=== PATIENT | male | born 1960 | race Caucasian/White ===

== ENCOUNTER 2017-03-04 09:23 | Inpatient (IN) | payer OTHER ==
[2017-03-04] MEDS ORDERED: Loperamide 2 MG Cap PO SCH (14:15)
[2017-03-04] MEDS ORDERED: Sodium Chloride 0.9% 10 ML Syringe FLUSH PRN (14:18)
[2017-03-04] MEDS ORDERED: D5 1/2 NS w/ 10 mEq/L KCl 1,000 ML IV SCH (14:30)
[2017-03-04] MEDS ORDERED: Prochlorperazine 10 MG Tab PO PRN (15:05)
[2017-03-04] MEDS ORDERED: Ondansetron 4 MG Tab.DIS PO PRN (15:05)
[2017-03-04] MEDS ORDERED: Non-Formulary Medication 1 Each (Loperamide Hcl [Imodium A-D] 2 MG) PO PRN (15:05)
[2017-03-04] MEDS: Dextrose 5%-0.9% NaCl 1,000 ML IV SCH ×2 (15:20→22:11)
[2017-03-04] MEDS ORDERED: Nystatin Susp 100,000 Unit/ML 60 ML Bottle PO SCH (16:00)
[2017-03-04] MEDS ORDERED: Loperamide 2 MG Cap PO PRN (16:08)
[2017-03-04] MEDS ORDERED: ONDANSETRON 8 MG PO PRN (16:19)
[2017-03-04] MEDS: Promethazine 25 MG/ML SDV IM SCH ×2 (17:43→22:14)
[2017-03-04] MEDS: Ondansetron 4 MG/2 ML SDV IVPUSH SCH ×2 (17:43→22:14)
[2017-03-04] MEDS: NYSTATIN PO SCH (22:04)
[2017-03-05] MEDS: Dextrose 5%-0.9% NaCl 1,000 ML IV SCH ×3 (04:19→17:44)
[2017-03-05] MEDS: Promethazine 25 MG/ML SDV IM SCH ×5 (07:58→14:33)
[2017-03-05] MEDS: DULoxetine 30 MG Cap PO SCH (07:59)
[2017-03-05] MEDS: Ondansetron 4 MG/2 ML SDV IVPUSH SCH ×3 (07:59→20:15)
[2017-03-05] MEDS: NYSTATIN PO SCH ×4 (08:00→21:18)
[2017-03-05] MEDS: Aspirin 81 MG Tab.EC PO SCH (08:00)
--- NOTE | 2017-03-05 10:23 | PCM.PN ---
- General Info Date of Service: 03/05/17 - Review of Systems General: Reports: Weakness HEENT: Reports: no symptoms Pulmonary: Reports: no symptoms Cardiovascular: Reports: No Symptoms Gastrointestinal: Reports: Decreased appetite, Nausea Genitourinary: Reports: no symptoms Musculoskeletal: Reports: no symptoms Skin: Reports: no symptoms Neurological: Reports: Weakness Psychiatric: Reports: no symptoms - Patient Data Vitals - most recent: Last Vital Signs Temp 36.8 C 03/05/17 08:00 Pulse 89 03/05/17 08:00 Resp 16 03/05/17 08:00 BP 118/76 03/05/17 08:00 Pulse Ox 97 03/05/17 08:00 Weight - most recent: 58.684 kg I&O - last 24 hours: Intake & Output 03/04/17 03/05/17 03/05/17 22:59 06:59 14:59 Intake Total 717 1600 Balance 717 1600 Lab Results last 24 hrs: Laboratory Results - last 24 hr 03/04/17 03/04/17 03/04/17 Range/Units 14:30 14:30 14:30 WBC 17.5 H D (4.0-11.0) K/uL RBC 5.04 (4.50-6.50) M/uL Hgb 15.5 (13.0-18.0) g/dL Hct 45.2 (40.0-54.0) % MCV 90 (76-96) fL MCH 30.8 (27.0-32.0) pg MCHC 34.3 (31.0-35.0) g/dL RDW 16.2 H (11.0-16.0) % Plt Count 254 D (150-400) K/uL MPV 9.8 (6.0-10.0) fL Neut % (Auto) 73.3 H (45.0-70.0) % Lymph % (Auto) 12.3 L (20.0-40.0) % Lyon % (Auto) 13.6 H (3.0-10.0) % Eos % (Auto) 0.2 L (1.0-5.0) % Baso % (Auto) 0.6 H (0.0-0.5) % Neut # (Auto) 12.84 H (2.00-7.50) K/uL Lymph # (Auto) 2.15 (1.50-4.00) K/uL Lyon # (Auto) 2.38 H (0.20-0.80) K/uL Eos # (Auto) 0.04 (0.04-0.40) K/uL Baso # (Auto) 0.10 (0.02-0.10) K/uL Sodium 133 L (136-145) mmol/L Potassium 4.0 (3.5-5.1) mmol/L Chloride 98 (98-107) mmol/L Carbon Dioxide 23.4 (21.0-32.0) mmol/L Anion Gap 15.6 H (5.0-15.0) mmol/L BUN 21 D (8-26) mg/dL Creatinine 1.31 H D (0.70-1.30) mg/dL Est Cr Clr Drug Dosing TNP Estimated GFR (MDRD) 57 L (>60) MLS/MIN BUN/Creatinine Ratio 16.0 (6-25) Glucose 142 H D (74-100) mg/dL Calcium 9.1 (8.5-10.1) mg/dL Magnesium 2.3 (1.8-2.4) mg/dL Total Bilirubin (0.0-1.0) mg/dL AST (15-37) U/L ALT (12-78) U/L Alkaline Phosphatase (46-116) U/L Total Protein (6.4-8.2) g/dL Albumin (3.4-5.0) g/dL Globulin (2.2-4.2) g/dL Albumin/Globulin Ratio (0.8-2.0) 03/05/17 03/05/17 Range/Units 09:28 09:28 WBC 9.1 D (4.0-11.0) K/uL RBC 4.10 L (4.50-6.50) M/uL Hgb 12.7 L (13.0-18.0) g/dL Hct 37.9 L (40.0-54.0) % MCV 92 (76-96) fL MCH 31.0 (27.0-32.0) pg MCHC 33.5 (31.0-35.0) g/dL RDW 15.7 (11.0-16.0) % Plt Count 126 L D (150-400) K/uL MPV 10.0 (6.0-10.0) fL Neut % (Auto) 76.6 H (45.0-70.0) % Lymph % (Auto) 10.9 L (20.0-40.0) % Lyon % (Auto) 11.2 H (3.0-10.0) % Eos % (Auto) 0.6 L (1.0-5.0) % Baso % (Auto) 0.7 H (0.0-0.5) % Neut # (Auto) 6.94 (2.00-7.50) K/uL Lymph # (Auto) 0.99 L (1.50-4.00) K/uL Lyon # (Auto) 1.01 H (0.20-0.80) K/uL Eos # (Auto) 0.05 (0.04-0.40) K/uL Baso # (Auto) 0.06 (0.02-0.10) K/uL Sodium 139 (136-145) mmol/L Potassium 4.4 (3.5-5.1) mmol/L Chloride 104 (98-107) mmol/L Carbon Dioxide 28.9 D (21.0-32.0) mmol/L Anion Gap 10.5 (5.0-15.0) mmol/L BUN 10 D (8-26) mg/dL Creatinine 1.07 (0.70-1.30) mg/dL Est Cr Clr Drug Dosing 62.04 Estimated GFR (MDRD) > 60 (>60) MLS/MIN BUN/Creatinine Ratio 9.3 (6-25) Glucose 116 H (74-100) mg/dL Calcium 8.4 L (8.5-10.1) mg/dL Magnesium (1.8-2.4) mg/dL Total Bilirubin 1.0 D (0.0-1.0) mg/dL AST 54 H (15-37) U/L ALT 123 H (12-78) U/L Alkaline Phosphatase 258 H (46-116) U/L Total Protein 5.6 L (6.4-8.2) g/dL Albumin 2.9 L (3.4-5.0) g/dL Globulin 2.7 (2.2-4.2) g/dL Albumin/Globulin Ratio 1.1 (0.8-2.0) Senthil Results last 24 hrs: Microbiology 03/04/17 09:29 Clostridium difficile (PCR) - Final Stool / Feces NEGATIVE CDIFF TOXIN Med Orders - Current: Current Medications Aspirin (Halfprin) 81 mg PO DAILY [facility] Last Admin: 03/05/17 08:00 Dose: 81 mg Duloxetine HCl (Cymbalta) 60 mg PO DAILY [facility] Last Admin: 03/05/17 07:59 Dose: 60 mg Dextrose/Sodium Chloride (Dextrose 5%-Normal Saline) 1,000 mls @ 150 mls/hr IV ASDIRECTED [facility] Last Admin: 03/05/17 04:19 Dose: 150 mls/hr Loperamide HCl (Imodium) 2 mg PO ASDIRECTED PRN PRN Reason: DIARRHEA Nystatin Oral (Suspension 473ml) 1 each PO QID [facility] Last Admin: 03/05/17 08:00 Dose: 1 each Ondansetron 8mg Odt 1 each PO Q8H PRN PRN Reason: NAUSEA Ondansetron HCl (Zofran) 4 mg IVPUSH Q6H [facility] Last Admin: 03/05/17 07:59 Dose: Not Given Prochlorperazine Maleate (Compazine) 10 mg PO QID PRN PRN Reason: Nausea Promethazine HCl (Phenergan) 25 mg IM Q4H [facility] Last Admin: 03/05/17 07:59 Dose: Not Given Sodium Chloride (Saline Flush) 10 ml FLUSH ASDIRECTED PRN PRN Reason: Keep Vein Open - Exam General: alert, oriented, cooperative HEENT: Pupils equal, Pupils reactive, EOMI Neck: supple Lungs: Clear to auscultation, Normal respiratory effort Cardiovascular: Regular Rate, Regular Rhythm Back Exam: Normal Inspection, Full Range of Motion Extremities: no edema Skin: warm, dry, intact Neurological: no new focal deficit - Problem List & Annotations (1) Nausea & vomiting SNOMED Code(s): 20261976 Code(s): R11.2 - NAUSEA WITH VOMITING, UNSPECIFIED Status: Acute Priority : High Current Visit: Yes Qualifiers: Vomiting type: unspecified Vomiting Intractability: intractable Qualified Code(s): R11.2 - Nausea with vomiting, unspecified (2) Pancreatic adenocarcinoma SNOMED Code(s): 001519652, 363997800 Code(s): C25.9 - MALIGNANT NEOPLASM OF PANCREAS, UNSPECIFIED Status: Acute Priority: High Current Visit: Yes (3) Decreased appetite SNOMED Code(s): 40082691 Code(s): R63.0 - ANOREXIA Status: Acute Priority: High Current Visit: Yes (4) Weight loss SNOMED Code(s): 367028354, 507749534 Code(s): R63.4 - ABNORMAL WEIGHT LOSS Status: Acute Priority: High Current Visit: Yes (5) Chemotherapy induced nausea and vomiting SNOMED Code(s): 405824588 Code(s): R11.2 - NAUSEA WITH VOMITING, UNSPECIFIED; T45.1X5A - ADVERSE EFFECT OF ANTINEOPLASTIC AND IMMUNOSUP DRUGS, INIT Status: Acute Priority: High Current Visit: Yes (6) Chemotherapy induced diarrhea SNOMED Code(s): 713894496 Code(s): K52.1 - TOXIC GASTROENTERITIS AND COLITIS; T45.1X5A - ADVERSE EFFECT OF ANTINEOPLASTIC AND IMMUNOSUP DRUGS, INIT Status: Acute Priority: High Current Visit: Yes - Problem List Review Problem List Initiated/Reviewed/Updated: Yes - My Orders Last 24 Hours: My Active Orders 03/04/17 14:01 Patient Status [ADT] Routine Ambulate [RC] PER UNIT ROUTINE Oxygen Therapy [RC] PRN Vital Signs [RC] Q4H 03/04/17 14:15 Ondansetron [Zofran] 4 mg IVPUSH Q6H Promethazine [Phenergan] 25 mg IM Q4H 03/04/17 14:18 Sodium Chloride 0.9% [Saline Flush] 10 ml FLUSH ASDIRECTED PRN Peripheral IV Insertion Adult [OM.PC] Routine 03/04/17 15:05 Prochlorperazine [Compazine] 10 mg PO QID PRN 03/04/17 15:15 Dextrose 5%-0.9% NaCl [Dextrose 5%-Normal Saline] 1,000 ml IV ASDIRECTED 03/04/17 15:44 CULTURE MRSA SURVEY [RM] Routine 03/04/17 16:08 Loperamide [Imodium] 2 mg PO ASDIRECTED PRN 03/04/17 16:19 Non-Formulary Medication [NF Drug] 1 each PO Q8H PRN 03/04/17 20:00 Non-Formulary Medication [NF Drug] 1 each PO QID 03/04/17 Dinner Heart Healthy Diet [DIET] 03/05/17 08:00 Aspirin [Halfprin] 81 mg PO DAILY DULoxetine [Cymbalta] 60 mg PO DAILY - Plan Plan:: Patient has improved with fluid resuscitation. He continues to be nauseated but has not has diarrhea or vomiting since being in observation. We will f/u labs this am and consider discharge planning for tomorrow. Locums can change discharge planning if patient condition changes.
[2017-03-05] MEDS: Metoclopramide 10 MG/2 ML SDV IVPUSH SCH ×2 (16:35→21:19)
[2017-03-06] MEDS: Dextrose 5%-0.9% NaCl 1,000 ML IV SCH ×3 (00:04→15:29)
[2017-03-06] MEDS: Ondansetron 4 MG/2 ML SDV IVPUSH SCH ×2 (03:03→07:16)
[2017-03-06] MEDS: Metoclopramide 10 MG/2 ML SDV IVPUSH SCH (03:03)
[2017-03-06] MEDS: Aspirin 81 MG Tab.EC PO SCH (07:14)
[2017-03-06] MEDS: DULoxetine 30 MG Cap PO SCH (07:14)
[2017-03-06] MEDS: NYSTATIN PO SCH ×4 (07:15→23:55)
[2017-03-06] MEDS ORDERED: OLANZapine 5 MG Tab PO SCH (10:00)
--- NOTE | 2017-03-06 11:15 | PCM.PN ---
- General Info Date of Service: 03/06/17 Functional Status: Reports: urinating. Denies: tolerating diet - Review of Systems General: Reports: Weakness HEENT: Reports: no symptoms Pulmonary: Reports: no symptoms Cardiovascular: Reports: No Symptoms Gastrointestinal: Reports: Abdominal pain, Decreased appetite, Diarrhea, Nausea , Vomiting Genitourinary: Reports: frequency Musculoskeletal: Reports: no symptoms Skin: Reports: no symptoms Neurological: Reports: Weakness Psychiatric: Reports: no symptoms - Patient Data Vitals - most recent: Last Vital Signs Temp 37.2 C 03/06/17 08:30 Pulse 90 03/06/17 08:30 Resp 16 03/06/17 08:30 BP 135/85 03/06/17 08:30 Pulse Ox 96 03/06/17 08:30 Weight - most recent: 58.684 kg I&O - last 24 hours: Intake & Output 03/05/17 03/06/17 03/06/17 22:59 06:59 14:59 Intake Total 1861 Balance 1861 Senthil Results last 24 hrs: Microbiology 03/04/17 15:44 MRSA Surveillance Culture - Final Nares, Unspecified NO MRSA ISOLATED Med Orders - Current: Current Medications Aspirin (Halfprin) 81 mg PO DAILY [facility] Last Admin: 03/06/17 07:14 Dose: 81 mg Duloxetine HCl (Cymbalta) 60 mg PO DAILY [facility] Last Admin: 03/06/17 07:14 Dose: 60 mg Dextrose/Sodium Chloride (Dextrose 5%-Normal Saline) 1,000 mls @ 150 mls/hr IV ASDIRECTED [facility] Last Admin: 03/06/17 07:07 Dose: 150 mls/hr Loperamide HCl (Imodium) 2 mg PO ASDIRECTED PRN PRN Reason: DIARRHEA Nystatin Oral (Suspension 473ml) 1 each PO QID [facility] Last Admin: 03/06/17 07:15 Dose: 1 each Ondansetron 8mg Odt 1 each PO Q8H PRN PRN Reason: NAUSEA Olanzapine (Zyprexa) 5 mg PO DAILY [facility] Ondansetron HCl (Zofran) 4 mg IVPUSH Q6H [facility] Last Admin: 03/06/17 07:16 Dose: 4 mg Prochlorperazine Maleate (Compazine) 10 mg PO QID PRN PRN Reason: Nausea Last Admin: 03/06/17 00:09 Dose: 10 mg Sodium Chloride (Saline Flush) 10 ml FLUSH ASDIRECTED PRN PRN Reason: Keep Vein Open Discontinued Medications Metoclopramide HCl (Reglan) 10 mg IVPUSH Q6H [facility] Last Admin: 03/06/17 03:03 Dose: 10 mg Promethazine HCl (Phenergan) 25 mg IM Q4H [facility] Last Admin: 03/05/17 14:33 Dose: 25 mg - Exam General: alert, oriented, cooperative HEENT: Pupils equal, Pupils reactive Neck: supple Lungs: Clear to auscultation, Normal respiratory effort Cardiovascular: Regular Rate, Regular Rhythm Abdomen: tenderness, abnormal bowel sounds (increased) Back Exam: Normal Inspection Extremities: no edema Peripheral Pulses: 2+: Dorsalis Pedis (L), Dorsalis Pedis (R) Skin: warm, dry, intact Wound/Incisions: healing well Neurological: no new focal deficit - Problem List & Annotations (1) Nausea & vomiting SNOMED Code(s): 16286018 Code(s): R11.2 - NAUSEA WITH VOMITING, UNSPECIFIED Status: Acute Priority : High Current Visit: Yes Qualifiers: Vomiting type: unspecified Vomiting Intractability: intractable Qualified Code(s): R11.2 - Nausea with vomiting, unspecified (2) Pancreatic adenocarcinoma SNOMED Code(s): 963294424, 229495619 Code(s): C25.9 - MALIGNANT NEOPLASM OF PANCREAS, UNSPECIFIED Status: Acute Priority: High Current Visit: Yes (3) Decreased appetite SNOMED Code(s): 93438265 Code(s): R63.0 - ANOREXIA Status: Acute Priority: High Current Visit: Yes (4) Weight loss SNOMED Code(s): 875748556, 877498322 Code(s): R63.4 - ABNORMAL WEIGHT LOSS Status: Acute Priority: High Current Visit: Yes (5) Chemotherapy induced nausea and vomiting SNOMED Code(s): 101819098 Code(s): R11.2 - NAUSEA WITH VOMITING, UNSPECIFIED; T45.1X5A - ADVERSE EFFECT OF ANTINEOPLASTIC AND IMMUNOSUP DRUGS, INIT Status: Acute Priority: High Current Visit: Yes (6) Chemotherapy induced diarrhea SNOMED Code(s): 490616062 Code(s): K52.1 - TOXIC GASTROENTERITIS AND COLITIS; T45.1X5A - ADVERSE EFFECT OF ANTINEOPLASTIC AND IMMUNOSUP DRUGS, INIT Status: Acute Priority: High Current Visit: Yes - Problem List Review Problem List Initiated/Reviewed/Updated: Yes - My Orders Last 24 Hours: My Active Orders 03/05/17 Dinner [place] Diet [DIET] 03/06/17 10:00 Ready for Discharge [RC] PER UNIT ROUTINE OLANZapine [ZyPREXA] 5 mg PO DAILY - Plan Plan:: Patient has improved with fluid resuscitation. He continues to be nauseated but has not has diarrhea or vomiting since being in observation. We will f/u labs this am and consider discharge planning for tomorrow. Locums can change discharge planning if patient condition changes. 03/06/17 Considered discharge today but after evaluation patient's condition deteriorated yesterday and had increased vomiting that lasted all night. We will try a different approach and start trial of Olanzapine 5mg BID. Started vicodin 7.5-325 q4-6 for abdominal pain and it may improve his diarrhea. Signed out to Dr. Jones and he will sign out to Dr. Leal at 5pm. Patient is currently on observation and will need to be reassessed tomorrow for admission or respite care. Continue fluids at 100mL/hr.
[2017-03-06] MEDS ORDERED: Acetaminophen/HYDROcodone 325-5 MG Tab ONE ×2 (11:28→15:05)
[2017-03-06] MEDS ORDERED: LORazepam 0.5 MG Tab PO PRN (14:09)
[2017-03-06] MEDS ORDERED: DEXAMETHASONE IV SCH (14:15)
[2017-03-06] MEDS ORDERED: SODIUM CHLORIDE 0.9% IV SCH (14:15)
[2017-03-06] MEDS ORDERED: LORazepam 2 MG/ML MDV IVPUSH PRN (14:29)
[2017-03-06] MEDS: GRANISETRON 1 MG/ML IVPUSH SCH (14:40)
[2017-03-06] MEDS: SODIUM CHLORIDE 0.9% IV SCH (14:44)
[2017-03-06] MEDS: DEXAMETHASONE IV SCH (14:44)
[2017-03-06] MEDS ORDERED: Acetaminophen/HYDROcodone 325-5 MG Tab PO PRN (15:20)
[2017-03-06] MEDS: OLANZapine 5 MG Tab PO SCH (23:55)
--- NOTE | 2017-03-07 00:57 | HP ---
The patient is going to transfer from observation to inpatient. DIAGNOSIS: Metastatic pancreatic cancer with intractable nausea and vomiting and intractable pain. HISTORY OF PRESENT ILLNESS: Patient is followed by Dr. Padilla and has an oncologists in [place], Dr. Tracey Lee. Patient is under treatment for his metastatic pancreatic cancer, was admitted by Dr. Padilla on 03/05/2017 for observation due to intractable pain, nausea, and vomiting. In the hospital, it was difficult to control his symptoms and therefore he was admitted to inpatient. REVIEW OF SYSTEMS: GENERAL: Patient reports generalized. Weakness. HEENT: No symptoms. Pulmonary: No symptoms. Cardiovascular: No symptoms. GI: Patient reports decreased appetite, nausea, vomiting, and occasional diarrhea. : No symptoms. MUSCULOSKELETAL: No symptoms. SKIN: No symptoms. NEUROLOGIC: Generalized malaise and weakness. PSYCHIATRIC: No symptoms. PHYSICAL EXAMINATION: VITAL SIGNS: Upon admission, show a blood pressure of 138/85, pulse of 95, O2 saturation at room air 95%, respirations 16, temperature 37.2. CONSTITUTIONAL: Patient appears chronically ill. He is pale and icteric with fair turgor. EYES: Show EOMI, PERRLA, mild icterus. ENT: Nose is clear. Throat is clear. No thrush. NECK: Symmetrical. No masses. No thyromegaly. LYMPH: Exam is negative. LUNGS: Clear. HEART: Shows regular rate and rhythm. No murmurs, rubs, or gallops. No S3, no S4. ABDOMEN: Shows bowel sounds x4. No mass, no organomegaly. There is no rebound. There is mild generalized tenderness. ORTHO: Shows no CVA or cord tenderness. No restricted joint motion, no acutely inflamed joints. SKIN: No rashes. He is, as I said, pale and icteric. NEURO: Cranial nerves II through XII are intact. No focal deficits. PSYCH: Normal judgment and insight. Oriented x3. His memory is intact and his mood is appropriate. ASSESSMENT: Metastatic pancreatic cancer with intractable pain and intractable nausea and vomiting. PLAN: Patient will be admitted to the hospital for continuous hydration and control of his pain and nausea and vomiting. FREDDY/MODRay
[2017-03-07] MEDS: Dextrose 5%-0.9% NaCl 1,000 ML IV SCH ×2 (06:28→10:45)
[2017-03-07] MEDS: Metoclopramide 10 MG/2 ML SDV IVPUSH SCH (07:30)
[2017-03-07] MEDS: OLANZapine 5 MG Tab PO SCH ×2 (08:18→22:16)
[2017-03-07] MEDS: Aspirin 81 MG Tab.EC PO SCH (08:18)
[2017-03-07] MEDS: DULoxetine 30 MG Cap PO SCH (08:18)
[2017-03-07] MEDS: SODIUM CHLORIDE 0.9% IV SCH (08:19)
[2017-03-07] MEDS: DEXAMETHASONE IV SCH (08:19)
[2017-03-07] MEDS: GRANISETRON 1 MG/ML IVPUSH SCH (08:20)
[2017-03-07] MEDS: NYSTATIN PO SCH (08:21)
--- NOTE | 2017-03-07 08:49 | PCM.PN ---
- General Info Date of Service: 03/07/17 Admission Dx/Problem (Free Text): Pancreatic cancer with nausea, vomiting and diarrhea caused by chemotherapy. Functional Status: Reports: pain controlled - Review of Systems General: Reports: Appetite, Other (Still nauseated at times with diarrhea.) HEENT: Reports: no symptoms Pulmonary: Reports: no symptoms Cardiovascular: Reports: No Symptoms Gastrointestinal: Reports: Diarrhea, Nausea, Vomiting Genitourinary: Reports: no symptoms Musculoskeletal: Reports: no symptoms Skin: Reports: no symptoms - Patient Data Vitals - most recent: Last Vital Signs Temp 37.2 C 03/07/17 00:00 Pulse 115 H 03/07/17 00:00 Resp 12 03/07/17 00:00 BP 143/72 H 03/07/17 00:00 Pulse Ox 96 03/07/17 00:00 Weight - most recent: 58.684 kg I&O - last 24 hours: Intake & Output 03/06/17 03/07/17 03/07/17 22:59 06:59 14:59 Intake Total 2200 1800 Output Total 800 800 Balance 1400 1000 Med Orders - Current: Current Medications Hydrocodone Bitart/Acetaminophen ([place] 325-5 Mg) 1 tab PO Q4H PRN PRN Reason: Pain Last Admin: 03/07/17 08:22 Dose: 1 tab Aspirin (Halfprin) 81 mg PO DAILY [facility] Last Admin: 03/07/17 08:18 Dose: 81 mg Duloxetine HCl (Cymbalta) 60 mg PO DAILY [facility] Last Admin: 03/07/17 08:18 Dose: 60 mg Granisetron HCl (Kytril) 1 mg IVPUSH DAILY [facility] Stop: 03/08/17 18:00 Last Admin: 03/07/17 08:20 Dose: 1 mg Dexamethasone 12 mg/ Sodium (Chloride) 103 mls @ 250 mls/hr IV DAILY [facility] Stop: 03/08/17 18:00 Last Admin: 03/07/17 08:19 Dose: 250 mls/hr Dextrose/Sodium Chloride (Dextrose 5%-Normal Saline) 1,000 mls @ 100 mls/hr IV ASDIRECTED [facility] Loperamide HCl (Imodium) 2 mg PO ASDIRECTED PRN PRN Reason: DIARRHEA Lorazepam (Ativan) 0.5 mg IVPUSH Q4H PRN PRN Reason: CHEMOTHERAPY Nystatin Oral (Suspension 473ml) 1 each PO QID [facility] Last Admin: 03/07/17 08:21 Dose: 1 each Ondansetron 8mg Odt 1 each PO Q8H PRN PRN Reason: NAUSEA Olanzapine (Zyprexa) 5 mg PO BID [facility] Last Admin: 03/07/17 08:18 Dose: 5 mg Ondansetron HCl (Zofran) 4 mg IVPUSH Q6H [facility] Last Admin: 03/06/17 07:16 Dose: 4 mg Sodium Chloride (Saline Flush) 10 ml FLUSH ASDIRECTED PRN PRN Reason: Keep Vein Open Discontinued Medications Hydrocodone Bitart/Acetaminophen ([place] 325-5 Mg) Confirm Administered Dose 1 tab .ROUTE .STK-MED ONE Stop: 03/06/17 11:29 Last Admin: 03/06/17 11:33 Dose: 1 tab Hydrocodone Bitart/Acetaminophen ([place] 325-5 Mg) Confirm Administered Dose 1 tab .ROUTE .STK-MED ONE Stop: 03/06/17 15:06 Last Admin: 03/06/17 15:23 Dose: 1 tab Dextrose/Sodium Chloride (Dextrose 5%-Normal Saline) 1,000 mls @ 150 mls/hr IV ASDIRECTED [facility] Last Admin: 03/07/17 06:28 Dose: 150 mls/hr Dexamethasone 12 mg/ Sodium (Chloride) 101.2 mls @ 250 mls/hr IV ASDIRECTED [facility] Stop: 03/08/17 18:00 Metoclopramide HCl (Reglan) 10 mg IVPUSH Q6H [facility] Last Admin: 03/07/17 07:30 Dose: Not Given Olanzapine (Zyprexa) 5 mg PO DAILY [facility] Last Admin: 03/06/17 11:31 Dose: 5 mg Prochlorperazine Maleate (Compazine) 10 mg PO QID PRN PRN Reason: Nausea Last Admin: 03/06/17 00:09 Dose: 10 mg Promethazine HCl (Phenergan) 25 mg IM Q4H [facility] Last Admin: 03/05/17 14:33 Dose: 25 mg - Exam General: alert Lungs: Clear to auscultation, Normal respiratory effort Cardiovascular: Regular Rate, Regular Rhythm Abdomen: bowel sounds present, soft, no tenderness, no distension Extremities: no edema Skin: warm, dry, intact Neurological: no new focal deficit Psy/Mental Status: alert, normal affect, normal mood - Problem List & Annotations (1) Chemotherapy induced diarrhea SNOMED Code(s): 219924879 Code(s): K52.1 - TOXIC GASTROENTERITIS AND COLITIS; T45.1X5A - ADVERSE EFFECT OF ANTINEOPLASTIC AND IMMUNOSUP DRUGS, INIT Status: Acute Priority: High Current Visit: Yes (2) Chemotherapy induced nausea and vomiting SNOMED Code(s): 361468764 Code(s): R11.2 - NAUSEA WITH VOMITING, UNSPECIFIED; T45.1X5A - ADVERSE EFFECT OF ANTINEOPLASTIC AND IMMUNOSUP DRUGS, INIT Status: Acute Priority: High Current Visit: Yes (3) Decreased appetite SNOMED Code(s): 16927684 Code(s): R63.0 - ANOREXIA Status: Acute Priority: High Current Visit: Yes (4) Nausea & vomiting SNOMED Code(s): 40122177 Code(s): R11.2 - NAUSEA WITH VOMITING, UNSPECIFIED Status: Acute Priority : High Current Visit: Yes Qualifiers: Vomiting type: unspecified Vomiting Intractability: intractable Qualified Code(s): R11.2 - Nausea with vomiting, unspecified (5) Pancreatic adenocarcinoma SNOMED Code(s): 619547264, 363625846 Code(s): C25.9 - MALIGNANT NEOPLASM OF PANCREAS, UNSPECIFIED Status: Acute Priority: High Current Visit: Yes (6) Weight loss SNOMED Code(s): 714935962, 350383027 Code(s): R63.4 - ABNORMAL WEIGHT LOSS Status: Acute Priority: High Current Visit: Yes - Problem List Review Problem List Initiated/Reviewed/Updated: Yes - Plan Plan:: Patient has improved with fluid resuscitation. He continues to be nauseated but has not has diarrhea or vomiting since being in observation. We will f/u labs this am and consider discharge planning for tomorrow. Locums can change discharge planning if patient condition changes. 03/06/17 Considered discharge today but after evaluation patient's condition deteriorated yesterday and had increased vomiting that lasted all night. We will try a different approach and start trial of Olanzapine 5mg BID. Started vicodin 7.5-325 q4-6 for abdominal pain and it may improve his diarrhea. Signed out to Dr. Jones and he will sign out to Dr. Backenberg at 5pm. Patient is currently on observation and will need to be reassessed tomorrow for admission or respite care. Continue fluids at 100mL/hr. 03/07/17 Continue fluids and new regimen of anti nausea medications started yesterday. Patient is not comfortable going home yet because he still is not able to eat and drink adequately this morning.
[2017-03-07] MEDS: Nystatin Susp 100,000 Unit/ML 5 ML UD Cup PO SCH ×2 (12:26→20:33)
[2017-03-07] MEDS ORDERED: Dextrose 5%-0.9% NaCl 1,000 ML IV SCH (15:15)
[2017-03-07] MEDS ORDERED: Dexamethasone 4 MG/ML SDV IVPUSH ONE (19:03)
[2017-03-07] MEDS ORDERED: Furosemide 40 MG/4 ML VIAL IVPUSH ONE (19:11)
[2017-03-07] MEDS: cefTRIAXone 1 GM in Sodium Chloride 0.9% 50 ML IV SCH (20:29)
[2017-03-07] MEDS: Azithromycin 500 MG in Sodium Chloride 0.9% 250 ML IV SCH (21:30)
[2017-03-08] MEDS ORDERED: HYDROmorphone 2 MG/ML Syringe IVPUSH PRN (08:07)
[2017-03-08] MEDS ORDERED: Dexamethasone 4 MG/ML SDV ONE (08:34)
--- NOTE | 2017-03-08 08:37 | PCM.PN ---
- General Info Date of Service: 03/08/17 Admission Dx/Problem (Free Text): Pancreatic cancer with nausea, vomiting and diarrhea caused by chemotherapy. Functional Status: Reports: pain controlled - Review of Systems General: Reports: Other (NG tube is in to intermittent suction.) HEENT: Reports: no symptoms Pulmonary: Reports: no symptoms Cardiovascular: Reports: No Symptoms Gastrointestinal: Reports: Abdominal pain, Nausea Genitourinary: Reports: no symptoms Musculoskeletal: Reports: no symptoms Skin: Reports: no symptoms Neurological: Reports: No Symptoms Psychiatric: Reports: no symptoms - Patient Data Vitals - most recent: Last Vital Signs Temp 37.2 C 03/07/17 20:00 Pulse 102 H 03/07/17 20:00 Resp 12 03/07/17 20:00 BP 131/82 03/07/17 20:33 Pulse Ox 98 03/07/17 20:00 Weight - most recent: 58.684 kg I&O - last 24 hours: Intake & Output 03/07/17 03/08/17 03/08/17 22:59 06:59 14:59 Intake Total 1380 Output Total 1900 1100 Balance -520 -1100 Lab Results last 24 hrs: Laboratory Results - last 24 hr 03/07/17 03/07/17 03/07/17 Range/Units 13:20 13:20 15:30 WBC 10.0 (4.0-11.0) K/uL RBC 3.80 L (4.50-6.50) M/uL Hgb 11.6 L (13.0-18.0) g/dL Hct 35.4 L (40.0-54.0) % MCV 93 (76-96) fL MCH 30.5 (27.0-32.0) pg MCHC 32.8 (31.0-35.0) g/dL RDW 15.5 (11.0-16.0) % Plt Count 115 L (150-400) K/uL MPV 9.7 (6.0-10.0) fL Neut % (Auto) 94.3 H (45.0-70.0) % Lymph % (Auto) 3.4 L (20.0-40.0) % Dawes % (Auto) 2.2 L (3.0-10.0) % Eos % (Auto) 0.0 L (1.0-5.0) % Baso % (Auto) 0.1 (0.0-0.5) % Neut # (Auto) 9.46 H (2.00-7.50) K/uL Lymph # (Auto) 0.34 L (1.50-4.00) K/uL Dawes # (Auto) 0.22 (0.20-0.80) K/uL Eos # (Auto) 0.00 L (0.04-0.40) K/uL Baso # (Auto) 0.01 L (0.02-0.10) K/uL Sodium 135 L (136-145) mmol/L Potassium 3.9 (3.5-5.1) mmol/L Chloride 103 (98-107) mmol/L Carbon Dioxide 26.4 (21.0-32.0) mmol/L Anion Gap 9.5 (5.0-15.0) mmol/L BUN 7 L D (8-26) mg/dL Creatinine 0.92 (0.70-1.30) mg/dL Est Cr Clr Drug Dosing 72.16 mL/min Estimated GFR (MDRD) > 60 (>60) MLS/MIN BUN/Creatinine Ratio 7.6 (6-25) Glucose 272 H D (74-100) mg/dL Lactic Acid 2.33 H (0.90-1.70) mmol/L Calcium 8.2 L (8.5-10.1) mg/dL Total Bilirubin 0.9 (0.0-1.0) mg/dL AST 36 (15-37) U/L ALT 90 H (12-78) U/L Alkaline Phosphatase 204 H (46-116) U/L Total Protein 5.2 L (6.4-8.2) g/dL Albumin 2.6 L (3.4-5.0) g/dL Globulin 2.6 (2.2-4.2) g/dL Albumin/Globulin Ratio 1.0 (0.8-2.0) Med Orders - Current: Current Medications Dexamethasone (Dexamethasone) 8 mg IVPUSH Q12HR [facility] Granisetron HCl (Kytril) 1 mg IVPUSH DAILY [facility] Stop: 03/08/17 18:00 Last Admin: 03/07/17 08:20 Dose: 1 mg Hydromorphone HCl (Dilaudid) 0.5 mg IVPUSH Q2H PRN PRN Reason: Pain Dextrose/Sodium Chloride (Dextrose 5%-Normal Saline) 1,000 mls @ 100 mls/hr IV ASDIRECTED [facility] Last Admin: 03/07/17 10:45 Dose: 100 mls/hr Azithromycin 500 mg/ Sodium (Chloride) 250 mls @ 250 mls/hr IV Q24H [facility] Last Admin: 03/07/17 21:30 Dose: 250 mls/hr Ceftriaxone Sodium 1 gm/ (Sodium Chloride) 50 mls @ 100 mls/hr IV Q24H [facility] Last Admin: 03/07/17 20:29 Dose: 100 mls/hr Lorazepam (Ativan) 0.5 mg IVPUSH Q4H PRN PRN Reason: CHEMOTHERAPY Ondansetron HCl (Zofran) 4 mg IVPUSH Q6H [facility] Last Admin: 03/06/17 07:16 Dose: 4 mg Sodium Chloride (Saline Flush) 10 ml FLUSH ASDIRECTED PRN PRN Reason: Keep Vein Open Discontinued Medications Hydrocodone Bitart/Acetaminophen ([place] 325-5 Mg) Confirm Administered Dose 1 tab .ROUTE .STK-MED ONE Stop: 03/06/17 11:29 Last Admin: 03/06/17 11:33 Dose: 1 tab Hydrocodone Bitart/Acetaminophen ([place] 325-5 Mg) Confirm Administered Dose 1 tab .ROUTE .STK-MED ONE Stop: 03/06/17 15:06 Last Admin: 03/06/17 15:23 Dose: 1 tab Hydrocodone Bitart/Acetaminophen ([place] 325-5 Mg) 1 tab PO Q4H PRN PRN Reason: Pain Last Admin: 03/07/17 08:22 Dose: 1 tab Aspirin (Halfprin) 81 mg PO DAILY [facility] Last Admin: 03/07/17 08:18 Dose: 81 mg Dexamethasone (Dexamethasone) 4 mg IVPUSH ONETIME ONE Stop: 03/07/17 19:04 Last Admin: 03/07/17 20:33 Dose: 4 mg Duloxetine HCl (Cymbalta) 60 mg PO DAILY [facility] Last Admin: 03/07/17 08:18 Dose: 60 mg Furosemide (Lasix) 10 mg IVPUSH NOW ONE Stop: 03/07/17 19:12 Last Admin: 03/07/17 20:33 Dose: 10 mg Dextrose/Sodium Chloride (Dextrose 5%-Normal Saline) 1,000 mls @ 150 mls/hr IV ASDIRECTED [facility] Last Admin: 03/07/17 06:28 Dose: 150 mls/hr Dexamethasone 12 mg/ Sodium (Chloride) 101.2 mls @ 250 mls/hr IV ASDIRECTED [facility] Stop: 03/08/17 18:00 Dexamethasone 12 mg/ Sodium (Chloride) 103 mls @ 250 mls/hr IV DAILY [facility] Stop: 03/08/17 18:00 Last Admin: 03/07/17 08:19 Dose: 250 mls/hr Loperamide HCl (Imodium) 2 mg PO ASDIRECTED PRN PRN Reason: DIARRHEA Last Admin: 03/07/17 09:12 Dose: 2 mg Metoclopramide HCl (Reglan) 10 mg IVPUSH Q6H [facility] Last Admin: 03/07/17 07:30 Dose: Not Given Nystatin Oral (Suspension 473ml) 1 each PO QID [facility] Last Admin: 03/07/17 08:21 Dose: 1 each Ondansetron 8mg Odt 1 each PO Q8H PRN PRN Reason: NAUSEA Nystatin (Mycostatin) 4 ml PO QID [facility] Last Admin: 03/07/17 20:33 Dose: 4 ml Olanzapine (Zyprexa) 5 mg PO DAILY [facility] Last Admin: 03/06/17 11:31 Dose: 5 mg Olanzapine (Zyprexa) 5 mg PO BID [facility] Last Admin: 03/07/17 22:16 Dose: Not Given Prochlorperazine Maleate (Compazine) 10 mg PO QID PRN PRN Reason: Nausea Last Admin: 03/06/17 00:09 Dose: 10 mg Promethazine HCl (Phenergan) 25 mg IM Q4H [facility] Last Admin: 03/05/17 14:33 Dose: 25 mg - Exam General: alert, oriented HEENT: EOMI, Mucous membr. moist/pink, Other Neck: supple Lungs: Clear to auscultation, Normal respiratory effort Cardiovascular: Regular Rate, Regular Rhythm Abdomen: bowel sounds present, soft, distension Extremities: no edema - Problem List & Annotations (1) Chemotherapy induced diarrhea SNOMED Code(s): 432741315 Code(s): K52.1 - TOXIC GASTROENTERITIS AND COLITIS; T45.1X5A - ADVERSE EFFECT OF ANTINEOPLASTIC AND IMMUNOSUP DRUGS, INIT Status: Acute Priority: High Current Visit: Yes (2) Chemotherapy induced nausea and vomiting SNOMED Code(s): 996802166 Code(s): R11.2 - NAUSEA WITH VOMITING, UNSPECIFIED; T45.1X5A - ADVERSE EFFECT OF ANTINEOPLASTIC AND IMMUNOSUP DRUGS, INIT Status: Acute Priority: High Current Visit: Yes (3) Decreased appetite SNOMED Code(s): 91636131 Code(s): R63.0 - ANOREXIA Status: Acute Priority: High Current Visit: Yes (4) Nausea & vomiting SNOMED Code(s): 52285622 Code(s): R11.2 - NAUSEA WITH VOMITING, UNSPECIFIED Status: Acute Priority : High Current Visit: Yes Qualifiers: Vomiting type: unspecified Vomiting Intractability: intractable Qualified Code(s): R11.2 - Nausea with vomiting, unspecified (5) Pancreatic adenocarcinoma SNOMED Code(s): 403679490, 631665992 Code(s): C25.9 - MALIGNANT NEOPLASM OF PANCREAS, UNSPECIFIED Status: Acute Priority: High Current Visit: Yes (6) Weight loss SNOMED Code(s): 998988561, 328899506 Code(s): R63.4 - ABNORMAL WEIGHT LOSS Status: Acute Priority: High Current Visit: Yes - Problem List Review Problem List Initiated/Reviewed/Updated: Yes - My Orders Last 24 Hours: My Active Orders 03/07/17 14:20 Abdomen Pelvis wo Cont [CT] Routine 03/07/17 15:30 CULTURE BLOOD [BC] Routine 03/07/17 15:52 Nasogastric Orogastric Tube Insertion [OM.PC] Routine 03/07/17 15:53 Gastrointestinal Tube Mgmt [RC] ASDIRECTED 03/07/17 19:00 cefTRIAXone [Rocephin] 1 gm Sodium Chloride 0.9% [Normal Saline] 50 ml IV Q24H 03/07/17 21:00 Azithromycin [Zithromax] 500 mg Sodium Chloride 0.9% [Normal Saline] 250 ml IV Q24H 03/08/17 08:07 HYDROmorphone [Dilaudid] 0.5 mg IVPUSH Q2H PRN 03/08/17 08:15 Dexamethasone 8 mg IVPUSH Q12HR - Assessment Assessment:: Bowel Obstruction. - Plan Plan:: 03-08-17 Patient is feeling better with the NG tube in and has had a small bowel movement. We will continue with IV Dexamethasone 8 mg bid IV and with the Rocephin and Zithromax to treat the possible pneumonia versus atelectasis in the lungs. If he is better and can take PO meds he will go to [facility] to discuss the possibility of getting into an experimental protocol for pancreatic cancer. Patient has improved with fluid resuscitation. He continues to be nauseated but has not has diarrhea or vomiting since being in observation. We will f/u labs this am and consider discharge planning for tomorrow. Locums can change discharge planning if patient condition changes. 03/06/17 Considered discharge today but after evaluation patient's condition deteriorated yesterday and had increased vomiting that lasted all night. We will try a different approach and start trial of Olanzapine 5mg BID. Started vicodin 7.5-325 q4-6 for abdominal pain and it may improve his diarrhea. Signed out to Dr. Jones and he will sign out to Dr. Leal at 5pm. Patient is currently on observation and will need to be reassessed tomorrow for admission or respite care. Continue fluids at 100mL/hr. 03/07/17 Continue fluids and new regimen of anti nausea medications started yesterday. Patient is not comfortable going home yet because he still is not able to eat and drink adequately this morning.6
[2017-03-08] MEDS: GRANISETRON 1 MG/ML IVPUSH SCH (08:41)
[2017-03-08] MEDS: Dexamethasone 10 MG/ML SDV IVPUSH SCH ×2 (08:42→21:02)
--- NOTE | 2017-03-08 10:36 | CT ---
DATE OF SERVICE: 03/07/17 CLINICAL DATA: increased pain UNENHANCED ABDOMEN AND PELVIS CT Multislice acquisition through the abdomen and pelvis without IV or oral contrast was performed. Comparison is made to a prior unenhanced abdomen and pelvis CT dated 04/25/16. There is a small right pleural effusion. There is atelectasis and consolidation in the right lung base. Pneumonia should be considered. The liver is abnormal. There are low-density lesions within the liver suspicious for hepatic metastases. There is intrahepatic biliary duct dilatation , greatest within the left lobe. There also appears to be a mass within the left lobe of the liver. There is an ill-defined mass involving the tail of the pancreas. It was present on the prior CT and most likely represents pancreatic carcinoma. This mass does appear to extend to and involve the splenic flexure of the colon. The colon appears to be obstructed at this level with colonic and small bowel distention with air-fluid levels proximal to this. This is consistent with obstruction. No free air. There is a small amount of free fluid adjacent to the liver consistent with ascites. No adenopathy. No aortic aneurysm. No other significant findings. IMPRESSION: Abnormal exam. See above. [id number] [facility] [place]
[2017-03-08] MEDS: Dextrose 5%-0.9% NaCl 1,000 ML IV SCH ×2 (12:15→23:59)
[2017-03-08] MEDS: cefTRIAXone 1 GM in Sodium Chloride 0.9% 50 ML IV SCH (19:44)
[2017-03-08] MEDS: Azithromycin 500 MG in Sodium Chloride 0.9% 250 ML IV SCH (21:02)
[2017-03-08] MEDS ORDERED: Ondansetron 4 MG/2 ML SDV ONE (21:22)
[2017-03-08] MEDS: Ondansetron 4 MG/2 ML SDV IVPUSH SCH (22:21)
[2017-03-09] MEDS: Ondansetron 4 MG/2 ML SDV IVPUSH SCH ×4 (04:25→20:46)
[2017-03-09] MEDS ORDERED: Dexamethasone 4 MG/ML SDV ONE (07:51)
[2017-03-09] MEDS: Dexamethasone 10 MG/ML SDV IVPUSH SCH (07:59)
[2017-03-09] MEDS: Dextrose 5%-0.9% NaCl 1,000 ML IV SCH (10:15)
[2017-03-09] MEDS ORDERED: cefTRIAXone 1 GM in Sodium Chloride 0.9% 100 ML IV SCH ×2 (10:38→20:00)
[2017-03-09] MEDS ORDERED: Dexamethasone 4 MG/ML SDV IVPUSH SCH (10:45)
--- NOTE | 2017-03-09 10:54 | PCM.PN ---
- General Info Date of Service: 03/09/17 Functional Status: Reports: pain controlled, ambulating - Review of Systems General: Reports: Weakness HEENT: Reports: no symptoms Pulmonary: Reports: no symptoms Cardiovascular: Reports: No Symptoms Gastrointestinal: Reports: Decreased appetite, Nausea, Other (NG tube, obstruction) Genitourinary: Reports: no symptoms Musculoskeletal: Reports: no symptoms Skin: Reports: no symptoms Neurological: Reports: Weakness Psychiatric: Reports: no symptoms - Patient Data Vitals - most recent: Last Vital Signs Temp 36.9 C 03/09/17 08:00 Pulse 93 03/09/17 08:00 Resp 18 03/09/17 08:00 BP 128/86 03/09/17 08:00 Pulse Ox 93 L 03/09/17 08:00 Weight - most recent: 63.163 kg I&O - last 24 hours: Intake & Output 03/08/17 03/09/17 03/09/17 22:59 06:59 14:59 Intake Total 1100 1550 Output Total 1350 400 Balance -250 1150 Senthil Results last 24 hrs: Microbiology 03/07/17 15:30 Aerobic Blood Culture - Preliminary Blood - Venous NO GROWTH AFTER 1 DAY Anaerobic Blood Culture - Preliminary NO GROWTH AFTER 1 DAY Med Orders - Current: Current Medications Dexamethasone (Dexamethasone) 8 mg IVPUSH Q12H [facility] Dextrose/Sodium Chloride (Dextrose 5%-Normal Saline) 1,000 mls @ 100 mls/hr IV ASDIRECTED [facility] Last Admin: 03/08/17 23:59 Dose: 100 mls/hr Azithromycin 500 mg/ Sodium (Chloride) 250 mls @ 250 mls/hr IV Q24H [facility] Last Admin: 03/08/17 21:02 Dose: 250 mls/hr Ceftriaxone Sodium 1 gm/ (Sodium Chloride) 100 mls @ 200 mls/hr IV Q24H [facility] Lorazepam (Ativan) 0.5 mg IVPUSH Q4H PRN PRN Reason: CHEMOTHERAPY Metoclopramide HCl (Reglan) 10 mg IVPUSH Q8H [facility] Ondansetron HCl (Zofran) 4 mg IVPUSH Q6H [facility] Last Admin: 03/09/17 08:10 Dose: 4 mg Sodium Chloride (Saline Flush) 10 ml FLUSH ASDIRECTED PRN PRN Reason: Keep Vein Open Discontinued Medications Hydrocodone Bitart/Acetaminophen ([place] 325-5 Mg) Confirm Administered Dose 1 tab .ROUTE .STK-MED ONE Stop: 03/06/17 11:29 Last Admin: 03/06/17 11:33 Dose: 1 tab Hydrocodone Bitart/Acetaminophen ([place] 325-5 Mg) Confirm Administered Dose 1 tab .ROUTE .STK-MED ONE Stop: 03/06/17 15:06 Last Admin: 03/06/17 15:23 Dose: 1 tab Hydrocodone Bitart/Acetaminophen ([place] 325-5 Mg) 1 tab PO Q4H PRN PRN Reason: Pain Last Admin: 03/07/17 08:22 Dose: 1 tab Aspirin (Halfprin) 81 mg PO DAILY [facility] Last Admin: 03/07/17 08:18 Dose: 81 mg Dexamethasone (Dexamethasone) 4 mg IVPUSH ONETIME ONE Stop: 03/07/17 19:04 Last Admin: 03/07/17 20:33 Dose: 4 mg Dexamethasone (Dexamethasone) 8 mg IVPUSH Q12HR [facility] Last Admin: 03/09/17 07:59 Dose: 8 mg Dexamethasone (Dexamethasone) Confirm Administered Dose 4 mg .ROUTE .STK-MED ONE Stop: 03/08/17 08:35 Dexamethasone (Dexamethasone) Confirm Administered Dose 8 mg .ROUTE .STK-MED ONE Stop: 03/09/17 07:52 Duloxetine HCl (Cymbalta) 60 mg PO DAILY [facility] Last Admin: 03/07/17 08:18 Dose: 60 mg Furosemide (Lasix) 10 mg IVPUSH NOW ONE Stop: 03/07/17 19:12 Last Admin: 03/07/17 20:33 Dose: 10 mg Granisetron HCl (Kytril) 1 mg IVPUSH DAILY [facility] Stop: 03/08/17 18:00 Last Admin: 03/08/17 08:41 Dose: 1 mg Hydromorphone HCl (Dilaudid) 0.5 mg IVPUSH Q2H PRN PRN Reason: Pain Dextrose/Sodium Chloride (Dextrose 5%-Normal Saline) 1,000 mls @ 150 mls/hr IV ASDIRECTED [facility] Last Admin: 03/07/17 06:28 Dose: 150 mls/hr Dexamethasone 12 mg/ Sodium (Chloride) 101.2 mls @ 250 mls/hr IV ASDIRECTED [facility] Stop: 03/08/17 18:00 Dexamethasone 12 mg/ Sodium (Chloride) 103 mls @ 250 mls/hr IV DAILY [facility] Stop: 03/08/17 18:00 Last Admin: 03/07/17 08:19 Dose: 250 mls/hr Ceftriaxone Sodium 1 gm/ (Sodium Chloride) 50 mls @ 100 mls/hr IV Q24H [facility] Last Admin: 03/08/17 19:44 Dose: 100 mls/hr Loperamide HCl (Imodium) 2 mg PO ASDIRECTED PRN PRN Reason: DIARRHEA Last Admin: 03/07/17 09:12 Dose: 2 mg Metoclopramide HCl (Reglan) 10 mg IVPUSH Q6H [facility] Last Admin: 03/07/17 07:30 Dose: Not Given Nystatin Oral (Suspension 473ml) 1 each PO QID [facility] Last Admin: 03/07/17 08:21 Dose: 1 each Ondansetron 8mg Odt 1 each PO Q8H PRN PRN Reason: NAUSEA Nystatin (Mycostatin) 4 ml PO QID [facility] Last Admin: 03/07/17 20:33 Dose: 4 ml Olanzapine (Zyprexa) 5 mg PO DAILY [facility] Last Admin: 03/06/17 11:31 Dose: 5 mg Olanzapine (Zyprexa) 5 mg PO BID [facility] Last Admin: 03/07/17 22:16 Dose: Not Given Ondansetron HCl (Zofran) Confirm Administered Dose 4 mg .ROUTE .STK-MED ONE Stop: 03/08/17 21:23 Prochlorperazine Maleate (Compazine) 10 mg PO QID PRN PRN Reason: Nausea Last Admin: 03/06/17 00:09 Dose: 10 mg Promethazine HCl (Phenergan) 25 mg IM Q4H [facility] Last Admin: 03/05/17 14:33 Dose: 25 mg - Exam General: alert, oriented, cooperative HEENT: Pupils equal, Pupils reactive, EOMI Neck: supple Lungs: Clear to auscultation, Normal respiratory effort Cardiovascular: Regular Rate, Regular Rhythm Abdomen: distension (slight, improved from prior description), abnormal bowel sounds (hyperactive) Back Exam: Normal Inspection Extremities: no edema Skin: warm, dry, intact Neurological: no new focal deficit Psy/Mental Status: alert, normal affect, normal mood - Problem List & Annotations (1) Nausea & vomiting SNOMED Code(s): 35545817 Code(s): R11.2 - NAUSEA WITH VOMITING, UNSPECIFIED Status: Acute Priority : High Current Visit: Yes Qualifiers: Vomiting type: unspecified Vomiting Intractability: intractable Qualified Code(s): R11.2 - Nausea with vomiting, unspecified (2) Pancreatic adenocarcinoma SNOMED Code(s): 086146730, 632285796 Code(s): C25.9 - MALIGNANT NEOPLASM OF PANCREAS, UNSPECIFIED Status: Acute Priority: High Current Visit: Yes (3) Decreased appetite SNOMED Code(s): 90951298 Code(s): R63.0 - ANOREXIA Status: Acute Priority: High Current Visit: Yes (4) Weight loss SNOMED Code(s): 181206130, 714932414 Code(s): R63.4 - ABNORMAL WEIGHT LOSS Status: Acute Priority: High Current Visit: Yes (5) Chemotherapy induced nausea and vomiting SNOMED Code(s): 934211260 Code(s): R11.2 - NAUSEA WITH VOMITING, UNSPECIFIED; T45.1X5A - ADVERSE EFFECT OF ANTINEOPLASTIC AND IMMUNOSUP DRUGS, INIT Status: Acute Priority: High Current Visit: Yes (6) Chemotherapy induced diarrhea SNOMED Code(s): 951177818 Code(s): K52.1 - TOXIC GASTROENTERITIS AND COLITIS; T45.1X5A - ADVERSE EFFECT OF ANTINEOPLASTIC AND IMMUNOSUP DRUGS, INIT Status: Acute Priority: High Current Visit: Yes (7) Bowel obstruction SNOMED Code(s): 51327640 Code(s): K56.60 - UNSPECIFIED INTESTINAL OBSTRUCTION Status: Acute Priority: High Current Visit: Yes Qualifiers: Intestinal obstruction type: other intestinal obstruction Qualified Code(s) : K56.69 - Other intestinal obstruction - Problem List Review Problem List Initiated/Reviewed/Updated: Yes - My Orders Last 24 Hours: My Active Orders 03/09/17 10:43 CBC WITH AUTO DIFF [HEME] Routine COMPREHENSIVE METABOLIC PN,CMP [CHEM] Routine 03/09/17 10:45 Dexamethasone 8 mg IVPUSH Q12H Metoclopramide [Reglan] 10 mg IVPUSH Q8H - Assessment Assessment:: Bowel Obstruction. - Plan Plan:: 03/09/17 Patient denies any abdominal pain and has had very small BM and stool. We will f/u labs this am. Discussed plans for [facility] and likely discharge tomorrow and d/c NG if clamping and trial works for d/c tomorrow. Discussed likely progression of bowel concerns at splenic flexure. 03-08-17 Patient is feeling better with the NG tube in and has had a small bowel movement. We will continue with IV Dexamethasone 8 mg bid IV and with the Rocephin and Zithromax to treat the possible pneumonia versus atelectasis in the lungs. If he is better and can take PO meds he will go to [facility] to discuss the possibility of getting into an experimental protocol for pancreatic cancer. Patient has improved with fluid resuscitation. He continues to be nauseated but has not has diarrhea or vomiting since being in observation. We will f/u labs this am and consider discharge planning for tomorrow. Loc[facility] can change discharge planning if patient condition changes. 03/06/17 Considered discharge today but after evaluation patient's condition deteriorated yesterday and had increased vomiting that lasted all night. We will try a different approach and start trial of Olanzapine 5mg BID. Started vicodin 7.5-325 q4-6 for abdominal pain and it may improve his diarrhea. Signed out to Dr. Jones and he will sign out to Dr. Leal at 5pm. Patient is currently on observation and will need to be reassessed tomorrow for admission or respite care. Continue fluids at 100mL/hr. 03/07/17 Continue fluids and new regimen of anti nausea medications started yesterday. Patient is not comfortable going home yet because he still is not able to eat and drink adequately this morning.
[2017-03-09] MEDS: Metoclopramide 10 MG/2 ML SDV IVPUSH SCH ×4 (11:10→19:28)
[2017-03-09] MEDS ORDERED: Metoclopramide 10 MG/2 ML SDV ONE (16:59)
[2017-03-09] MEDS: Dexamethasone 4 MG/ML SDV IVPUSH SCH (20:00)
[2017-03-09] MEDS ORDERED: Metoclopramide 10 MG/2 ML SDV IVPUSH SCH (20:00)
[2017-03-09] MEDS: Azithromycin 500 MG in Sodium Chloride 0.9% 250 ML IV SCH (21:00)
[2017-03-10] MEDS: Ondansetron 4 MG/2 ML SDV IVPUSH SCH ×2 (05:33→08:58)
[2017-03-10] MEDS: Metoclopramide 10 MG/2 ML SDV IVPUSH SCH (05:34)
[2017-03-10] MEDS: Dextrose 5%-0.9% NaCl 1,000 ML IV SCH (06:39)
[2017-03-10] MEDS ORDERED: Dexamethasone 4 MG/ML SDV ONE (08:18)
[2017-03-10] MEDS: Dexamethasone 4 MG/ML SDV IVPUSH SCH (08:42)
[2017-03-10] MEDS ORDERED: Acetaminophen/oxyCODONE 325-5 MG Tab ONE (10:00)
[2017-03-10] MEDS ORDERED: Ondansetron 4 MG Tab.DIS ONE (10:00)
[2017-03-10 10:39] VITALS: BP 141/91
--- NOTE | 2017-03-12 09:36 | PCM.DCSUM1 ---
Discharge Summary - Hospital Course Brief History: This is a 56yo M who presented to the clinic for intractable nausea and vomting. Patient also has had diarrhea and weight loss. He was admitted for dehydration and chemo related intractable nausea and vomiting and developed bowel obstruction during his stay. Patient plan was to get referred to [facility] for further management and possible clinic trials for his pancreatic adenocarcinoma. - Discharge Data Discharge Date: 03/10/17 Discharge Disposition: Home, Self-Care 01 Condition: Good - Discharge Diagnosis/Problem(s) (1) Nausea & vomiting SNOMED Code(s): 41531936 ICD Code: R11.2 - NAUSEA WITH VOMITING, UNSPECIFIED Status: Acute Priority: High Qualifiers: Vomiting type: unspecified Vomiting Intractability: intractable Qualified Code(s): R11.2 - Nausea with vomiting, unspecified (2) Pancreatic adenocarcinoma SNOMED Code(s): 938287203, 310574528 ICD Code: C25.9 - MALIGNANT NEOPLASM OF PANCREAS, UNSPECIFIED Status: Acute Priority: High (3) Decreased appetite SNOMED Code(s): 25448536 ICD Code: R63.0 - ANOREXIA Status: Acute Priority: High (4) Weight loss SNOMED Code(s): 304607370, 020670675 ICD Code: R63.4 - ABNORMAL WEIGHT LOSS Status: Acute Priority: High (5) Chemotherapy induced nausea and vomiting SNOMED Code(s): 850282548 ICD Code: R11.2 - NAUSEA WITH VOMITING, UNSPECIFIED; T45.1X5A - ADVERSE EFFECT OF ANTINEOPLASTIC AND IMMUNOSUP DRUGS, INIT Status: Acute Priority: High (6) Chemotherapy induced diarrhea SNOMED Code(s): 378072219 ICD Code: K52.1 - TOXIC GASTROENTERITIS AND COLITIS; T45.1X5A - ADVERSE EFFECT OF ANTINEOPLASTIC AND IMMUNOSUP DRUGS, INIT Status: Acute Priority: High (7) Bowel obstruction SNOMED Code(s): 46759515 ICD Code: K56.60 - UNSPECIFIED INTESTINAL OBSTRUCTION Status: Acute Priority: High Qualifiers: Intestinal obstruction type: other intestinal obstruction Qualified Code(s) : K56.69 - Other intestinal obstruction - Discharge Plan Home Medications: Home Meds Aspirin [Halfprin] 81 mg PO DAILY 03/04/17 [History] DULoxetine HCl [Duloxetine HCl] 30 mg PO DAILY 03/04/17 [History] Loperamide HCl [Imodium A-D] 2 mg PO Q2HR PRN 03/04/17 [History] Nystatin 100,000 unit PO QID 03/04/17 [History] Ondansetron [Zofran ODT] 4 mg PO Q8HR PRN 03/04/17 [History] Prochlorperazine Maleate 10 mg PO QID PRN 03/04/17 [History] Patient Handouts: Deep Vein Thrombosis - Discharge Summary/Plan Comment DC Time >30 min.: Yes Discharge Summary/Plan Comment: Patient discharged for private vehicle travel to [place] for a direct admit. He will have further workup and scans on arrival. Medical information sent with patient and scans sent via PACS. - Patient Data Vitals - Most Recent: Last Vital Signs Temp 37.3 C 03/10/17 08:00 Pulse 90 03/10/17 08:00 Resp 18 03/10/17 08:00 BP 141/91 H 03/10/17 08:00 Pulse Ox 94 L 03/09/17 16:00 Weight - Most Recent: 63.163 kg [place] Results - Last 24 hrs: Microbiology 03/07/17 15:30 Aerobic Blood Culture - Preliminary Blood - Venous NO GROWTH AFTER 4 DAYS Anaerobic Blood Culture - Preliminary NO GROWTH AFTER 4 DAYS Med Orders - Current: Current Medications Discontinued Medications Hydrocodone Bitart/Acetaminophen ([place] 325-5 Mg) Confirm Administered Dose 1 tab .ROUTE .STK-MED ONE Stop: 03/06/17 11:29 Last Admin: 03/06/17 11:33 Dose: 1 tab Hydrocodone Bitart/Acetaminophen ([place] 325-5 Mg) Confirm Administered Dose 1 tab .ROUTE .STK-MED ONE Stop: 03/06/17 15:06 Last Admin: 03/06/17 15:23 Dose: 1 tab Hydrocodone Bitart/Acetaminophen ([place] 325-5 Mg) 1 tab PO Q4H PRN PRN Reason: Pain Last Admin: 03/07/17 08:22 Dose: 1 tab Aspirin (Halfprin) 81 mg PO DAILY [facility] Last Admin: 03/07/17 08:18 Dose: 81 mg Dexamethasone (Dexamethasone) 4 mg IVPUSH ONETIME ONE Stop: 03/07/17 19:04 Last Admin: 03/07/17 20:33 Dose: 4 mg Dexamethasone (Dexamethasone) 8 mg IVPUSH Q12HR [facility] Last Admin: 03/09/17 07:59 Dose: 8 mg Dexamethasone (Dexamethasone) Confirm Administered Dose 4 mg .ROUTE .STK-MED ONE Stop: 03/08/17 08:35 Dexamethasone (Dexamethasone) Confirm Administered Dose 8 mg .ROUTE .STK-MED ONE Stop: 03/09/17 07:52 Last Admin: 03/09/17 11:00 Dose: Not Given Dexamethasone (Dexamethasone) 8 mg IVPUSH Q12H [facility] Last Admin: 03/09/17 11:39 Dose: Not Given Dexamethasone (Dexamethasone) 8 mg IVPUSH BID [facility] Last Admin: 03/10/17 08:42 Dose: 8 mg Dexamethasone (Dexamethasone) Confirm Administered Dose 4 mg .ROUTE .STK-MED ONE Stop: 03/10/17 08:19 Duloxetine HCl (Cymbalta) 60 mg PO DAILY [facility] Last Admin: 03/07/17 08:18 Dose: 60 mg Furosemide (Lasix) 10 mg IVPUSH NOW ONE Stop: 03/07/17 19:12 Last Admin: 03/07/17 20:33 Dose: 10 mg Granisetron HCl (Kytril) 1 mg IVPUSH DAILY [facility] Stop: 03/08/17 18:00 Last Admin: 03/08/17 08:41 Dose: 1 mg Hydromorphone HCl (Dilaudid) 0.5 mg IVPUSH Q2H PRN PRN Reason: Pain Dextrose/Sodium Chloride (Dextrose 5%-Normal Saline) 1,000 mls @ 150 mls/hr IV ASDIRECTED [facility] Last Admin: 03/07/17 06:28 Dose: 150 mls/hr Dexamethasone 12 mg/ Sodium (Chloride) 101.2 mls @ 250 mls/hr IV ASDIRECTED [facility] Stop: 03/08/17 18:00 Dexamethasone 12 mg/ Sodium (Chloride) 103 mls @ 250 mls/hr IV DAILY [facility] Stop: 03/08/17 18:00 Last Admin: 03/07/17 08:19 Dose: 250 mls/hr Dextrose/Sodium Chloride (Dextrose 5%-Normal Saline) 1,000 mls @ 100 mls/hr IV ASDIRECTED [facility] Last Admin: 03/10/17 06:39 Dose: 100 mls/hr Azithromycin 500 mg/ Sodium (Chloride) 250 mls @ 250 mls/hr IV Q24H [facility] Last Admin: 03/09/17 21:00 Dose: 250 mls/hr Ceftriaxone Sodium 1 gm/ (Sodium Chloride) 50 mls @ 100 mls/hr IV Q24H [facility] Last Admin: 03/08/17 19:44 Dose: 100 mls/hr Ceftriaxone Sodium 1 gm/ (Sodium Chloride) 100 mls @ 200 mls/hr IV Q24H [facility] Last Admin: 03/09/17 12:02 Dose: Not Given Ceftriaxone Sodium 1 gm/ (Sodium Chloride) 100 mls @ 200 mls/hr IV Q24H [facility] Last Admin: 03/09/17 20:00 Dose: 200 mls/hr Loperamide HCl (Imodium) 2 mg PO ASDIRECTED PRN PRN Reason: DIARRHEA Last Admin: 03/07/17 09:12 Dose: 2 mg Lorazepam (Ativan) 0.5 mg IVPUSH Q4H PRN PRN Reason: CHEMOTHERAPY Metoclopramide HCl (Reglan) 10 mg IVPUSH Q6H [facility] Last Admin: 03/09/17 18:39 Dose: 10 mg Metoclopramide HCl (Reglan) 10 mg IVPUSH Q8H [facility] Last Admin: 03/09/17 19:00 Dose: 10 mg Metoclopramide HCl (Reglan) 10 mg IVPUSH TID [facility] Metoclopramide HCl (Reglan) Confirm Administered Dose 10 mg .ROUTE .K-MED ONE Stop: 03/09/17 17:00 Last Admin: 03/09/17 18:55 Dose: Not Given Metoclopramide HCl (Reglan) 10 mg IVPUSH Q8H [facility] Last Admin: 03/10/17 05:34 Dose: Not Given Nystatin Oral (Suspension 473ml) 1 each PO QID [facility] Last Admin: 03/07/17 08:21 Dose: 1 each Ondansetron 8mg Odt 1 each PO Q8H PRN PRN Reason: NAUSEA Nystatin (Mycostatin) 4 ml PO QID [facility] Last Admin: 03/07/17 20:33 Dose: 4 ml Olanzapine (Zyprexa) 5 mg PO DAILY [facility] Last Admin: 03/06/17 11:31 Dose: 5 mg Olanzapine (Zyprexa) 5 mg PO BID [facility] Last Admin: 03/07/17 22:16 Dose: Not Given Ondansetron HCl (Zofran) 4 mg IVPUSH Q6H [facility] Last Admin: 03/10/17 08:58 Dose: 4 mg Ondansetron HCl (Zofran) Confirm Administered Dose 4 mg .ROUTE .STK-MED ONE Stop: 03/08/17 21:23 Ondansetron HCl (Zofran Odt) 16 mg .ROUTE .STK-MED ONE Stop: 03/10/17 10:01 Oxycodone/Acetaminophen (Percocet 325-5 Mg) 4 tab .ROUTE .STK-MED ONE Stop: 03/10/17 10:01 Prochlorperazine Maleate (Compazine) 10 mg PO QID PRN PRN Reason: Nausea Last Admin: 03/06/17 00:09 Dose: 10 mg Promethazine HCl (Phenergan) 25 mg IM Q4H [facility] Last Admin: 03/05/17 14:33 Dose: 25 mg Sodium Chloride (Saline Flush) 10 ml FLUSH ASDIRECTED PRN PRN Reason: Keep Vein Open *Q Meaningful Use (DIS) - VTE *Q VTE Criteria *Q: - Stroke *Q Stroke Criteria *Q: - AMI *Q AMI Criteria *Q:
== END 2017-03-10 10:20 | disposition home or self-care (01) | DRG 917 ==
LOC: LB.CLINIC 09:23 → UNDOADMOB 13:50 → LB.MS 13:50 → OBSVTOIN 03-06 16:24
PROVIDERS: ADMIT Family Medicine; ATTEND Internal Medicine
DX: T45.1X5A Adverse effect of antineoplastic and immunosuppressive drugs, initial encounter (principal); J18.9 Pneumonia, unspecified organism; C25.9 Malignant neoplasm of pancreas, unspecified; C79.9 Secondary malignant neoplasm of unspecified site; K56.69 Other intestinal obstruction; J98.11 Atelectasis; R19.7 Diarrhea, unspecified; R11.2 Nausea with vomiting, unspecified; G89.3 Neoplasm related pain (acute) (chronic); R63.0 Anorexia; R63.4 Abnormal weight loss; Z79.82 Long term (current) use of aspirin
CPT/HCPCS: 36415; 74176; 80048; 80053; 83605; 83735; 85025; 87040; 87493; 96361; 96372; 96374; 96375; 96376; A9270-GY; G0378; J0456; J0696; J1100; J1626; J1940; J2405; J2550; J2765; J7030; J7050

== ENCOUNTER 2017-03-15 15:42 | Inpatient (IN) | payer OTHER ==
[2017-03-15] MEDS ORDERED: Prochlorperazine 10 MG Tab PO PRN (16:46)
[2017-03-15] MEDS: Dextrose 5%-0.9% NaCl 1,000 ML IV SCH (17:00)
--- NOTE | 2017-03-15 17:01 | EDM.PDOC ---
ED HPI GENERAL MEDICAL PROBLEM - General Chief Complaint: General Stated Complaint: NAUSEA/VOMITING Time Seen by Provider: 03/15/17 16:20 Source of Information: Reports: Patient, Family - History of Present Illness INITIAL COMMENTS - FREE TEXT/NARRATIVE: This is a 56yo M presenting to the ER for intractable vomiting and diarrhea. He has extreme nausea and some abdominal pain. He recently had a bowel obstruction and now has also been diagnosed with two pulmonary emboli of the left lung. Patient has been unable to eat since yesterday and feels fatigued and weak. Onset: Gradual Duration: Day(s):, Getting Worse Location: Reports: Generalized Severity: Moderate Improves with: Reports: None Worsens with: Reports: None - Related Data Allergies Allergy/AdvReac Type Severity Reaction Status Date / Time No Known Allergies Allergy Verified 01/30/17 16:12 Home Meds: Home Meds DULoxetine HCl [Duloxetine HCl] 30 mg PO DAILY 03/04/17 [History] Loperamide HCl [Imodium A-D] 2 mg PO Q2HR PRN 03/04/17 [History] Nystatin 100,000 unit PO QID 03/04/17 [History] Prochlorperazine Maleate 10 mg PO QID PRN 03/04/17 [History] Enoxaparin [Lovenox] 60 mg SQ BID 03/15/17 [History] Ondansetron HCl [Ondansetron] 8 mg PO Q8HR PRN 03/15/17 [History] Past Medical History Oncologic (Cancer) History: Reports: Pancreatic, Other (See Below) Other Oncologic History: Hx Pancreatic Adenocarcinoma, receiving chemo tx with last being 3 weeks ago. - Past Surgical History Oncologic Surgical History: Reports: None Social & Family History - Family History Family Medical History: Noncontributory - Tobacco Use Smoking Status *Q: Never Smoker Second Hand Smoke Exposure: No - Caffeine Use Caffeine Use: Reports: None - Recreational Drug Use Recreational Drug Use: No ED ROS GENERAL - Review of Systems Review Of Systems: ROS reveals no pertinent complaints other than HPI. ED EXAM, GENERAL - Physical Exam Exam: See Below Exam Limited By: No Limitations General Appearance: Alert, WD/WN, Mild Distress Eye Exam: Bilateral Eye: EOMI Ears: Normal External Exam Nose: Normal Inspection Throat/Mouth: Normal Inspection Head: Atraumatic, Normocephalic Neck: Normal Inspection Respiratory/Chest: No Respiratory Distress, Lungs Clear, Normal Breath Sounds Cardiovascular: Normal Peripheral Pulses, Regular Rate, Rhythm Peripheral Pulses: 2+: Dorsalis Pedis (L), Dorsalis Pedis (R) GI/Abdominal: Normal Bowel Sounds, Soft, Tender Back Exam: Normal Inspection Extremities: Normal Inspection, Normal Range of Motion, Pallor Neurological: Alert, Oriented, CN II-XII Intact Psychiatric: Normal Affect, Normal Mood Skin Exam: Dry, Intact, Cool Course - Orders/Labs/Meds Orders: Active Orders 24 hr Category Date Time Status Patient Status [ADT] Routine ADT 03/15/17 16:43 Ordered Bedrest Bathroom Privileges [RC] ASDIRECTED Care 03/15/17 16:43 Ordered Height and Weight [RC] DAILY Care 03/15/17 16:43 Ordered May Shower [RC] ASDIRECTED Care 03/15/17 16:43 Ordered Oxygen Therapy [RC] PRN Care 03/15/17 16:43 Ordered Vital Signs [RC] Q4H Care 03/15/17 16:43 Ordered Full Liquid Diet [DIET] Diet 03/15/17 Dinner Ordered Aspirin [Halfprin] Med 03/16/17 08:00 Ordered 81 mg PO DAILY DULoxetine [Cymbalta] Med 03/16/17 08:00 Ordered 30 mg PO DAILY Dexamethasone Med 03/15/17 17:00 Ordered 10 mg IVPUSH Q6H Dextrose 5%-Normal Saline @ 125 MLS/HR(1000ml) Med 03/15/17 17:00 Ordered Dextrose 5%-0.9% NaCl [Dextrose 5%-Normal Saline] 1,000 ml IV ASDIRECTED Enoxaparin [Lovenox] Med 03/15/17 17:00 Ordered 60 mg SUBCUT BID Loperamide HCl [Imodium A-D] Med 03/15/17 16:46 Ordered 2 mg PO Q2HR PRN Nystatin [Mycostatin] Med 03/15/17 20:00 Ordered 100,000 unit PO QID OLANZapine [ZyPREXA] Med 03/15/17 17:00 Ordered 5 mg PO DAILY Ondansetron [Zofran] Med 03/15/17 17:00 Ordered 4 mg IVPUSH Q6H Prochlorperazine [Compazine] Med 03/15/17 16:46 Ordered 10 mg PO QID PRN Medication Orders Aspirin (Halfprin) 81 mg PO DAILY [facility] Dexamethasone (Dexamethasone) 10 mg IVPUSH Q6H [facility] Stop: 03/18/17 17:00 Duloxetine HCl (Cymbalta) 30 mg PO DAILY [facility] Enoxaparin Sodium (Lovenox) 60 mg SUBCUT BID [facility] Dextrose/Sodium Chloride (Dextrose 5%-Normal Saline) 1,000 mls @ 125 mls/hr IV ASDIRECTED [facility] Non-Formulary Medication (Loperamide Hcl [Imodium A-D]) 2 mg PO Q2HR PRN PRN Reason: Diarrhea Nystatin (Mycostatin) 1 ml PO QID [facility] Olanzapine (Zyprexa) 5 mg PO DAILY [facility] Ondansetron HCl (Zofran) 4 mg IVPUSH Q6H [facility] Prochlorperazine Maleate (Compazine) 10 mg PO QID PRN PRN Reason: Nausea Meds: Medications Generic Name Dose Route Start Last Admin Trade Name Freq PRN Reason Stop Dose Admin Aspirin 81 mg 03/16/17 08:00 Halfprin PO DAILY [facility] Dexamethasone 10 mg 03/15/17 17:00 Dexamethasone IVPUSH 03/18/17 17:00 Q6H [facility] Duloxetine HCl 30 mg 03/16/17 08:00 Cymbalta PO DAILY [facility] Enoxaparin Sodium 60 mg 03/15/17 17:00 Lovenox SUBCUT BID [facility] Dextrose/Sodium Chloride 1,000 mls @ 125 mls/hr 03/15/17 17:00 Dextrose 5%-Normal Saline IV ASDIRECTED [facility] Non-Formulary Medication 2 mg 03/15/17 16:46 Loperamide Hcl [Imodium A-D] PO Q2HR PRN Diarrhea Nystatin 1 ml 03/15/17 20:00 Mycostatin PO QID [facility] Olanzapine 5 mg 03/15/17 17:00 Zyprexa PO DAILY [facility] Ondansetron HCl 4 mg 03/15/17 17:00 Zofran IVPUSH Q6H [facility] Prochlorperazine Maleate 10 mg 03/15/17 16:46 Compazine PO QID PRN Nausea Departure - Departure Time of Disposition: 16:58 Disposition: Admitted As Inpatient 66 Condition: Fair Clinical Impression: Pulmonary embolism on left, Nausea vomiting and diarrhea, Dehydration Chemotherapy adverse reaction Qualifiers: Encounter type: subsequent encounter Qualified Code(s): T45.1X5D - Adverse effect of antineoplastic and immunosuppressive drugs, subsequent encounter Abdominal pain Qualifiers: Abdominal location: lower abdomen, unspecified Qualified Code(s): R10.30 - Lower abdominal pain, unspecified - Discharge Information Forms: ED Department Discharge - Problem List Review Problem List Initiated/Reviewed/Updated: Yes - My Orders Last 24 Hours: My Active Orders 03/15/17 16:43 Patient Status [ADT] Routine Bedrest Bathroom Privileges [RC] ASDIRECTED Height and Weight [RC] DAILY May Shower [RC] ASDIRECTED Oxygen Therapy [RC] PRN Vital Signs [RC] Q4H 03/15/17 16:46 Loperamide HCl [Imodium A-D] 2 mg PO Q2HR PRN Prochlorperazine [Compazine] 10 mg PO QID PRN 03/15/17 17:00 Dexamethasone 10 mg IVPUSH Q6H Dextrose 5%-Normal Saline @ 125 MLS/HR(1000ml) Dextrose 5%-0.9% NaCl [Dextrose 5 %-Normal Saline] 1,000 ml IV ASDIRECTED Enoxaparin [Lovenox] 60 mg SUBCUT BID OLANZapine [ZyPREXA] 5 mg PO DAILY Ondansetron [Zofran] 4 mg IVPUSH Q6H 03/15/17 20:00 Nystatin [Mycostatin] 100,000 unit PO QID 03/15/17 Dinner Full Liquid Diet [DIET] 03/16/17 08:00 Aspirin [Halfprin] 81 mg PO DAILY DULoxetine [Cymbalta] 30 mg PO DAILY - Assessment/Plan Last 24 Hours: My Active Orders 03/15/17 16:43 Patient Status [ADT] Routine Bedrest Bathroom Privileges [RC] ASDIRECTED Height and Weight [RC] DAILY May Shower [RC] ASDIRECTED Oxygen Therapy [RC] PRN Vital Signs [RC] Q4H 03/15/17 16:46 Loperamide HCl [Imodium A-D] 2 mg PO Q2HR PRN Prochlorperazine [Compazine] 10 mg PO QID PRN 03/15/17 17:00 Dexamethasone 10 mg IVPUSH Q6H Dextrose 5%-Normal Saline @ 125 MLS/HR(1000ml) Dextrose 5%-0.9% NaCl [Dextrose 5 %-Normal Saline] 1,000 ml IV ASDIRECTED Enoxaparin [Lovenox] 60 mg SUBCUT BID OLANZapine [ZyPREXA] 5 mg PO DAILY Ondansetron [Zofran] 4 mg IVPUSH Q6H 03/15/17 20:00 Nystatin [Mycostatin] 100,000 unit PO QID 03/15/17 Dinner Full Liquid Diet [DIET] 03/16/17 08:00 Aspirin [Halfprin] 81 mg PO DAILY DULoxetine [Cymbalta] 30 mg PO DAILY Plan: Patient admitted for fluid resuscitation and monitoring. Patient will be placed on dexamthasone, zofran IV, and olanzapine 5mg daily. Discussed D5NS hydration and check labs in AM.
[2017-03-15] MEDS ORDERED: Dexamethasone 4 MG/ML SDV ONE ×3 (17:44→20:58)
[2017-03-15] MEDS: Enoxaparin 60 MG/0.6 ML Syringe SUBCUT SCH ×3 (18:01→21:22)
[2017-03-15] MEDS: Ondansetron 4 MG/2 ML SDV IVPUSH SCH ×2 (18:01→22:15)
[2017-03-15] MEDS: HYDROmorphone 2 MG/ML Syringe IVPUSH PRN ×2 (18:02→21:04)
[2017-03-15] MEDS: Dexamethasone 4 MG/ML 5 ML MDV IVPUSH SCH ×2 (18:02→22:15)
[2017-03-15] MEDS: OLANZapine 5 MG Tab PO SCH (18:08)
[2017-03-15] MEDS ORDERED: Loperamide 2 MG Cap PO PRN ×2 (18:39→18:42)
[2017-03-15] MEDS ORDERED: Zolpidem 5 MG Tab ONE (20:51)
[2017-03-15] MEDS: Nystatin Susp 100,000 Unit/ML 5 ML UD Cup PO SCH (20:55)
[2017-03-15] MEDS: Zolpidem 5 MG Tab PO SCH (21:03)
[2017-03-16] MEDS: Dextrose 5%-0.9% NaCl 1,000 ML IV SCH ×3 (01:00→15:47)
[2017-03-16] MEDS: HYDROmorphone 2 MG/ML Syringe IVPUSH PRN ×3 (03:54→21:55)
[2017-03-16] MEDS ORDERED: Dexamethasone 4 MG/ML SDV ONE (05:34)
[2017-03-16] MEDS: Dexamethasone 4 MG/ML 5 ML MDV IVPUSH SCH ×2 (05:38→16:24)
[2017-03-16] MEDS: Ondansetron 4 MG/2 ML SDV IVPUSH SCH ×4 (05:38→16:30)
[2017-03-16] MEDS: Enoxaparin 60 MG/0.6 ML Syringe SUBCUT SCH ×2 (05:39→17:43)
[2017-03-16] MEDS: Loperamide 2 MG Cap PO SCH (08:00)
[2017-03-16] MEDS ORDERED: Aspirin 81 MG Tab.EC PO SCH (08:00)
[2017-03-16] MEDS: Nystatin Susp 100,000 Unit/ML 5 ML UD Cup PO SCH ×4 (08:35→19:52)
[2017-03-16] MEDS: OLANZapine 5 MG Tab PO SCH (08:35)
[2017-03-16] MEDS: DULoxetine 30 MG Cap PO SCH (08:35)
--- NOTE | 2017-03-16 09:09 | PCM.PN ---
- General Info Date of Service: 03/16/17 Subjective Update: Patient has shown improvement since being admitted. We have continued his zofran , olanzapine, and dexamethasone as scheduled. Patient is tolerating his diet at this time. Improved abdominal pain per patient. - Review of Systems General: Reports: Weakness, Fatigue HEENT: Reports: no symptoms Pulmonary: Reports: no symptoms Cardiovascular: Reports: No Symptoms Gastrointestinal: Reports: Abdominal pain Genitourinary: Reports: no symptoms Musculoskeletal: Reports: no symptoms Skin: Reports: no symptoms Neurological: Reports: No Symptoms - Patient Data Vitals - most recent: Last Vital Signs Temp 36.6 C 03/16/17 07:47 Pulse 81 03/16/17 07:47 Resp 18 03/16/17 07:47 BP 117/81 03/16/17 07:47 Pulse Ox 97 03/16/17 07:47 Weight - most recent: 58.513 kg I&O - last 24 hours: Intake & Output 03/15/17 03/16/17 03/16/17 22:59 06:59 14:59 Intake Total 200 Output Total 0 Balance 200 Lab Results last 24 hrs: Laboratory Results - last 24 hr 03/16/17 03/16/17 Range/Units 07:05 07:05 WBC 3.6 L D (4.0-11.0) K/uL RBC 3.75 L (4.50-6.50) M/uL Hgb 11.7 L (13.0-18.0) g/dL Hct 34.4 L (40.0-54.0) % MCV 92 (76-96) fL MCH 31.2 (27.0-32.0) pg MCHC 34.0 (31.0-35.0) g/dL RDW 14.9 (11.0-16.0) % Plt Count 130 L (150-400) K/uL MPV 10.4 H (6.0-10.0) fL Neut % (Auto) 74.7 H (45.0-70.0) % Lymph % (Auto) 14.9 L (20.0-40.0) % Butler % (Auto) 10.4 H (3.0-10.0) % Eos % (Auto) 0.0 L (1.0-5.0) % Baso % (Auto) 0.0 (0.0-0.5) % Neut # (Auto) 2.66 (2.00-7.50) K/uL Lymph # (Auto) 0.53 L (1.50-4.00) K/uL Butler # (Auto) 0.37 (0.20-0.80) K/uL Eos # (Auto) 0.00 L (0.04-0.40) K/uL Baso # (Auto) 0.00 L (0.02-0.10) K/uL Sodium 136 (136-145) mmol/L Potassium 4.3 (3.5-5.1) mmol/L Chloride 103 (98-107) mmol/L Carbon Dioxide 26.1 (21.0-32.0) mmol/L Anion Gap 11.2 (5.0-15.0) mmol/L BUN 13 (8-26) mg/dL Creatinine 0.75 (0.70-1.30) mg/dL Est Cr Clr Drug Dosing 91.02 mL/min Estimated GFR (MDRD) > 60 (>60) MLS/MIN BUN/Creatinine Ratio 17.3 (6-25) Glucose 184 H D (74-100) mg/dL Calcium 8.2 L (8.5-10.1) mg/dL Magnesium 2.0 (1.8-2.4) mg/dL Total Bilirubin 1.3 H D (0.0-1.0) mg/dL AST 56 H (15-37) U/L ALT 154 H (12-78) U/L Alkaline Phosphatase 213 H (46-116) U/L Total Protein 5.5 L (6.4-8.2) g/dL Albumin 2.7 L (3.4-5.0) g/dL Globulin 2.8 (2.2-4.2) g/dL Albumin/Globulin Ratio 1.0 (0.8-2.0) Med Orders - Current: Current Medications Dexamethasone (Dexamethasone) 10 mg IVPUSH Q6H [facility] Stop: 03/18/17 17:00 Last Admin: 03/16/17 05:38 Dose: 10 mg Duloxetine HCl (Cymbalta) 30 mg PO DAILY [facility] Last Admin: 03/16/17 08:35 Dose: 30 mg Enoxaparin Sodium (Lovenox) 60 mg SUBCUT Q12H [facility] Last Admin: 03/16/17 05:39 Dose: 60 mg Hydromorphone HCl (Dilaudid) 0.5 - 1 mg IVPUSH Q4H PRN PRN Reason: Pain Last Admin: 03/16/17 03:54 Dose: 1 mg Dextrose/Sodium Chloride (Dextrose 5%-Normal Saline) 1,000 mls @ 125 mls/hr IV ASDIRECTED [facility] Last Admin: 03/16/17 07:44 Dose: 125 mls/hr Loperamide HCl (Imodium) 2 mg PO Q2H PRN PRN Reason: Diarrhea Loperamide HCl (Imodium) 4 mg PO DAILY [facility] Nystatin (Mycostatin) 1 ml PO QID [facility] Last Admin: 03/16/17 08:35 Dose: 1 ml Olanzapine (Zyprexa) 5 mg PO DAILY [facility] Last Admin: 03/16/17 08:35 Dose: 5 mg Ondansetron HCl (Zofran) 4 mg IVPUSH Q6H [facility] Last Admin: 03/16/17 05:38 Dose: 4 mg Prochlorperazine Maleate (Compazine) 10 mg PO QID PRN PRN Reason: Nausea Zolpidem Tartrate (Ambien) 10 mg PO BEDTIME [facility] Last Admin: 03/15/17 21:03 Dose: 10 mg Discontinued Medications Aspirin (Halfprin) 81 mg PO DAILY [facility] Dexamethasone (Dexamethasone) Confirm Administered Dose 12 mg .ROUTE .STK-MED ONE Stop: 03/15/17 17:45 Last Admin: 03/15/17 18:08 Dose: Not Given Dexamethasone (Dexamethasone) Confirm Administered Dose 4 mg .ROUTE .STK-MED ONE Stop: 03/15/17 20:54 Last Admin: 03/15/17 21:23 Dose: Not Given Dexamethasone (Dexamethasone) Confirm Administered Dose 12 mg .ROUTE .STK-MED ONE Stop: 03/15/17 20:59 Last Admin: 03/15/17 21:23 Dose: Not Given Dexamethasone (Dexamethasone) Confirm Administered Dose 4 mg .ROUTE .STK-MED ONE Stop: 03/16/17 05:35 Last Admin: 03/16/17 05:40 Dose: Not Given Enoxaparin Sodium (Lovenox) 60 mg SUBCUT BID [facility] Last Admin: 03/15/17 20:00 Dose: Not Given Loperamide HCl (Imodium) 2 - 4 mg PO Q2H PRN PRN Reason: Diarrhea Zolpidem Tartrate (Ambien) Confirm Administered Dose 10 mg .ROUTE .STK-MED ONE Stop: 03/15/17 20:52 Last Admin: 03/15/17 21:23 Dose: 10 mg - Exam General: alert, oriented, cooperative HEENT: Pupils equal, Pupils reactive, EOMI Neck: supple Lungs: Clear to auscultation, Normal respiratory effort Cardiovascular: Regular Rate, Regular Rhythm Abdomen: bowel sounds present Extremities: no edema Peripheral Pulses: 2+: Dorsalis Pedis (L), Dorsalis Pedis (R) Skin: warm, dry, intact Neurological: no new focal deficit Psy/Mental Status: alert, normal affect, normal mood - Problem List & Annotations (1) Abdominal pain SNOMED Code(s): 38130367 Code(s): R10.9 - UNSPECIFIED ABDOMINAL PAIN Status: Acute Priority: High Current Visit: Yes Qualifiers: Abdominal location: lower abdomen, unspecified Qualified Code(s): R10.30 - Lower abdominal pain, unspecified (2) Chemotherapy adverse reaction SNOMED Code(s): 013337333 Code(s): T45.1X5A - ADVERSE EFFECT OF ANTINEOPLASTIC AND IMMUNOSUP DRUGS, INIT Status: Acute Priority: High Current Visit: Yes Qualifiers: Encounter type: subsequent encounter Qualified Code(s): T45.1X5D - Adverse effect of antineoplastic and immunosuppressive drugs, subsequent encounter (3) Dehydration SNOMED Code(s): 13834318 Code(s): E86.0 - DEHYDRATION Status: Resolved Priority: High Current Visit: Yes (4) Nausea vomiting and diarrhea SNOMED Code(s): 4339018 Code(s): R11.2 - NAUSEA WITH VOMITING, UNSPECIFIED; R19.7 - DIARRHEA, UNSPECIFIED Status: Acute Priority: High Current Visit: Yes (5) Pulmonary embolism on left SNOMED Code(s): 35911440, 64645376 Code(s): I26.99 - OTHER PULMONARY EMBOLISM WITHOUT ACUTE COR PULMONALE Status: Acute Priority: High Current Visit: Yes (6) Decreased appetite SNOMED Code(s): 08211634 Code(s): R63.0 - ANOREXIA Status: Acute Priority: High Current Visit: Yes (7) Pancreatic adenocarcinoma SNOMED Code(s): 489695869, 131397925 Code(s): C25.9 - MALIGNANT NEOPLASM OF PANCREAS, UNSPECIFIED Status: Chronic Priority: High Current Visit: Yes (8) Weight loss SNOMED Code(s): 425917977, 914639917 Code(s): R63.4 - ABNORMAL WEIGHT LOSS Status: Acute Priority: High Current Visit: Yes - Problem List Review Problem List Initiated/Reviewed/Updated: Yes - My Orders Last 24 Hours: My Active Orders 03/15/17 16:46 Prochlorperazine [Compazine] 10 mg PO QID PRN 03/15/17 17:00 Dexamethasone 10 mg IVPUSH Q6H Dextrose 5%-0.9% NaCl [Dextrose 5%-Normal Saline] 1,000 ml IV ASDIRECTED OLANZapine [ZyPREXA] 5 mg PO DAILY Ondansetron [Zofran] 4 mg IVPUSH Q6H 03/15/17 17:48 HYDROmorphone [Dilaudid] 0.5 - 1 mg IVPUSH Q4H PRN 03/15/17 18:42 Loperamide [Imodium] 2 mg PO Q2H PRN 03/15/17 20:00 Nystatin [Mycostatin] 1 ml PO QID 03/16/17 08:00 DULoxetine [Cymbalta] 30 mg PO DAILY Loperamide [Imodium] 4 mg PO DAILY 03/16/17 20:00 Zolpidem [Ambien] 10 mg PO BEDTIME 03/17/17 05:11 CBC WITH AUTO DIFF [HEME] AM COMPREHENSIVE METABOLIC PN,CMP [CHEM] AM MAGNESIUM [CHEM] AM 03/18/17 05:11 CBC WITH AUTO DIFF [HEME] AM COMPREHENSIVE METABOLIC PN,CMP [CHEM] AM MAGNESIUM [CHEM] AM - Plan Plan:: Patient was placed on ambien 10 mg last night for sleep and it has helped. We will continue Ambien as well as olanzapine, dexamethasone, and zofran as scheduled. Continue on full liquid diet at this time. Monitor BM and urine output as needed.
[2017-03-16] MEDS: Dexamethasone 4 MG/ML SDV IVPUSH SCH ×2 (16:34→23:28)
[2017-03-16] MEDS: Zolpidem 5 MG Tab PO SCH ×2 (19:51→21:30)
[2017-03-17] MEDS: Ondansetron 4 MG/2 ML SDV IVPUSH SCH ×3 (00:37→13:06)
[2017-03-17] MEDS: Dexamethasone 4 MG/ML SDV IVPUSH SCH ×2 (04:59→10:53)
[2017-03-17] MEDS: Enoxaparin 60 MG/0.6 ML Syringe SUBCUT SCH (06:08)
[2017-03-17] MEDS: DULoxetine 30 MG Cap PO SCH (07:52)
[2017-03-17] MEDS: Nystatin Susp 100,000 Unit/ML 5 ML UD Cup PO SCH ×2 (07:52→13:07)
[2017-03-17] MEDS: OLANZapine 5 MG Tab PO SCH (07:52)
[2017-03-17] MEDS: Loperamide 2 MG Cap PO SCH (08:30)
--- NOTE | 2017-03-17 08:51 | PCM.DCSUM1 ---
Discharge Summary - Hospital Course Free Text/Narrative:: Pt is a 56/Male with past medical history of pancreatic cancer who presented to the emergency room 2 days ago with nausea and vomiting. He was admitted for IV hydration adn controlling his vomiting. Pt was started on Iv fluids and IV zofran, dexamethasone, compazine. Pt has had a uneventful course. His cbc and CMP are stable. He is feeling better today. He claims his nausea has resolved and is tolerating oral diet. Hence patient has been planned for discharge today. During his recent visit to [place] he was diagnosed with b/l pulmonary embolism and has been started on lovenox. Also he has been advised to get his Pelvic ultrasound and Lower extremity doppler for workup of PE, which will be done today before discharge. Also he claims that he has not been able to sleep well, he only get 4-5 hrs sleep during night, but since he has been on ambien he has been sleeping well. i have advised patient to taken his ambien 10mg at bedtime only as needed. The concern of drug dependence has been discussed. Also patient describe vague abdominal pain in the periumbilical region which happen 3-4 hrs after eating meals and hurts for a while and gradually [id number]. It does appear like pancreatic relate pain, as it is periumbilical and is late postprandial. Hence I have advised him to take percocet when he does eat big meals as it should help with his periumbilical pain. Also colace 100mg twice daily. Have advised patient to sign release of information form [facility]. Brief History: Pt with pancreatic cancer with nausea and vomiting. Admitted for control of symptoms and hydration. See H&P for details. - Discharge Data Discharge Date: 03/17/17 Discharge Disposition: Home, Self-Care 01 Condition: Good - Patient Instructions Diet: GI Soft/Low Residue/Low Fiber Fluid Restriction: 1500 mL Activity: As Tolerated Driving: May Drive Today Showering/Bathing: May Shower - Discharge Plan Home Medications: Home Meds DULoxetine HCl [Duloxetine HCl] 60 mg PO DAILY 03/04/17 [History] Loperamide HCl [Imodium A-D] 2 mg PO Q2HR PRN 03/04/17 [History] Nystatin 100,000 unit PO QID PRN 03/04/17 [History] Prochlorperazine Maleate 10 mg PO QID PRN 03/04/17 [History] Enoxaparin [Lovenox] 60 mg SQ BID 03/15/17 [History] Forms: ED Department Discharge Referrals: PCP,None [Primary Care Provider] - - Discharge Summary/Plan Comment DC Time >30 min.: Yes Discharge Summary/Plan Comment: Pt is a 56/Male with past medical history of pancreatic cancer who presented to the emergency room 2 days ago with nausea and vomiting. He was admitted for IV hydration adn controlling his vomiting. Pt was started on Iv fluids and IV zofran, dexamethasone, compazine. Pt has had a uneventful course. His cbc and CMP are stable. He is feeling better today. He claims his nausea has resolved and is tolerating oral diet. Hence patient has been planned for discharge today. During his recent visit to [place] he was diagnosed with b/l pulmonary embolism and has been started on lovenox. Also he has been advised to get his Pelvic ultrasound and Lower extremity doppler for workup of PE, which will be done today before discharge. Also he claims that he has not been able to sleep well, he only get 4-5 hrs sleep during night, but since he has been on ambien he has been sleeping well. i have advised patient to taken his ambien 10mg at bedtime only as needed. The concern of drug dependence has been discussed. Also patient describe vague abdominal pain in the periumbilical region which happen 3-4 hrs after eating meals and hurts for a while and gradually [id number]. It does appear like pancreatic relate pain, as it is periumbilical and is late postprandial. Hence I have advised him to take percocet when he does eat big meals as it should help with his periumbilical pain. Also colace 100mg twice daily. Have advised patient to sign release of information form [facility]. - General Info Date of Service: 03/17/17 Functional Status: Reports: pain controlled, tolerating diet, ambulating, urinating - Review of Systems General: Denies: Fever, Weakness HEENT: Denies: headaches, post nasal drip Pulmonary: Denies: shortness of breath, cough, sputum Cardiovascular: Denies: Chest Pain, Edema, Lightheadedness Gastrointestinal: Reports: Flatus. Denies: Abdominal pain, Diarrhea, Nausea, Vomiting Genitourinary: Denies: frequency, burning Musculoskeletal: Denies: shoulder pain, arm pain, hand pain Skin: Denies: pruritis, rash Neurological: Denies: Confusion, Dizziness, Headache - Patient Data Vitals - Most Recent: Last Vital Signs Temp 98.2 F 03/17/17 07:00 Pulse 95 03/17/17 07:00 Resp 18 03/17/17 07:00 BP 113/75 03/17/17 07:00 Pulse Ox 94 L 03/17/17 07:00 Weight - Most Recent: 62.312 kg I&O - Last 24 hours: Intake & Output 03/16/17 03/17/17 03/17/17 22:59 06:59 14:59 Intake Total 1770 100 Output Total 1250 500 Balance 520 -400 Lab Results - Last 24 hrs: Laboratory Results - last 24 hr 03/17/17 03/17/17 Range/Units 07:05 07:05 WBC 5.8 D (4.0-11.0) K/uL RBC 3.66 L (4.50-6.50) M/uL Hgb 11.3 L (13.0-18.0) g/dL Hct 33.6 L (40.0-54.0) % MCV 92 (76-96) fL MCH 30.9 (27.0-32.0) pg MCHC 33.6 (31.0-35.0) g/dL RDW 14.4 (11.0-16.0) % Plt Count 116 L (150-400) K/uL MPV 10.1 H (6.0-10.0) fL Neut % (Auto) 88.7 H (45.0-70.0) % Lymph % (Auto) 7.3 L (20.0-40.0) % Rowan % (Auto) 3.8 (3.0-10.0) % Eos % (Auto) 0.0 L (1.0-5.0) % Baso % (Auto) 0.2 (0.0-0.5) % Neut # (Auto) 5.10 (2.00-7.50) K/uL Lymph # (Auto) 0.42 L (1.50-4.00) K/uL Rowan # (Auto) 0.22 (0.20-0.80) K/uL Eos # (Auto) 0.00 L (0.04-0.40) K/uL Baso # (Auto) 0.01 L (0.02-0.10) K/uL Sodium 140 (136-145) mmol/L Potassium 3.8 (3.5-5.1) mmol/L Chloride 105 (98-107) mmol/L Carbon Dioxide 26.6 (21.0-32.0) mmol/L Anion Gap 12.2 (5.0-15.0) mmol/L BUN 10 D (8-26) mg/dL Creatinine 0.82 (0.70-1.30) mg/dL Est Cr Clr Drug Dosing 86.74 mL/min Estimated GFR (MDRD) > 60 (>60) MLS/MIN BUN/Creatinine Ratio 12.2 (6-25) Glucose 153 H (74-100) mg/dL Calcium 8.3 L (8.5-10.1) mg/dL Magnesium 1.8 (1.8-2.4) mg/dL Total Bilirubin 0.5 D (0.0-1.0) mg/dL AST 40 H (15-37) U/L ALT 136 H (12-78) U/L Alkaline Phosphatase 227 H (46-116) U/L Total Protein 5.2 L (6.4-8.2) g/dL Albumin 2.6 L (3.4-5.0) g/dL Globulin 2.6 (2.2-4.2) g/dL Albumin/Globulin Ratio 1.0 (0.8-2.0) Med Orders - Current: Current Medications Dexamethasone (Dexamethasone) 10 mg IVPUSH Q6H [facility] Stop: 03/18/17 18:00 Last Admin: 03/17/17 04:59 Dose: 10 mg Duloxetine HCl (Cymbalta) 30 mg PO DAILY [facility] Last Admin: 03/17/17 07:52 Dose: 30 mg Enoxaparin Sodium (Lovenox) 60 mg SUBCUT Q12H [facility] Last Admin: 03/17/17 06:08 Dose: 60 mg Hydromorphone HCl (Dilaudid) 0.5 - 1 mg IVPUSH Q4H PRN PRN Reason: Pain Last Admin: 03/16/17 21:55 Dose: 0.5 mg Dextrose/Sodium Chloride (Dextrose 5%-Normal Saline) 1,000 mls @ 125 mls/hr IV ASDIRECTED [facility] Last Infusion: 03/16/17 16:59 Dose: 50 mls/hr Loperamide HCl (Imodium) 2 mg PO Q2H PRN PRN Reason: Diarrhea Loperamide HCl (Imodium) 4 mg PO DAILY [facility] Last Admin: 03/17/17 08:30 Dose: Not Given Nystatin (Mycostatin) 1 ml PO QID [facility] Last Admin: 03/17/17 07:52 Dose: 1 ml Olanzapine (Zyprexa) 5 mg PO DAILY [facility] Last Admin: 03/17/17 07:52 Dose: 5 mg Ondansetron HCl (Zofran) 4 mg IVPUSH Q6H [facility] Last Admin: 03/17/17 06:04 Dose: 4 mg Prochlorperazine Maleate (Compazine) 10 mg PO QID PRN PRN Reason: Nausea Zolpidem Tartrate (Ambien) 10 mg PO BEDTIME [facility] Last Admin: 03/16/17 21:30 Dose: 10 mg Discontinued Medications Aspirin (Halfprin) 81 mg PO DAILY [facility] Dexamethasone (Dexamethasone) 10 mg IVPUSH Q6H [facility] Stop: 03/18/17 17:00 Last Admin: 03/16/17 16:24 Dose: Not Given Dexamethasone (Dexamethasone) Confirm Administered Dose 12 mg .ROUTE .ST-MED ONE Stop: 03/15/17 17:45 Last Admin: 03/15/17 18:08 Dose: Not Given Dexamethasone (Dexamethasone) Confirm Administered Dose 4 mg .ROUTE .ST-MED ONE Stop: 03/15/17 20:54 Last Admin: 03/15/17 21:23 Dose: Not Given Dexamethasone (Dexamethasone) Confirm Administered Dose 12 mg .ROUTE .STK-MED ONE Stop: 03/15/17 20:59 Last Admin: 03/15/17 21:23 Dose: Not Given Dexamethasone (Dexamethasone) Confirm Administered Dose 4 mg .ROUTE .ST-MED ONE Stop: 03/16/17 05:35 Last Admin: 03/16/17 05:40 Dose: Not Given Enoxaparin Sodium (Lovenox) 60 mg SUBCUT BID [facility] Last Admin: 03/15/17 20:00 Dose: Not Given Loperamide HCl (Imodium) 2 - 4 mg PO Q2H PRN PRN Reason: Diarrhea Zolpidem Tartrate (Ambien) Confirm Administered Dose 10 mg .ROUTE .STK-MED ONE Stop: 03/15/17 20:52 Last Admin: 03/15/17 21:23 Dose: 10 mg - Exam General: Reports: alert, oriented HEENT: Reports: Pupils equal, Pupils reactive, EOMI, Mucous membr. moist/pink Neck: Reports: supple Lungs: Reports: Clear to auscultation, Normal respiratory effort Cardiovascular: Reports: Regular Rate, Regular Rhythm Abdomen: Reports: bowel sounds present, soft, no tenderness, no distension Extremities: Reports: no edema, normal pulses Skin: Reports: warm, dry, intact *Q Meaningful Use (DIS) - VTE *Q VTE Criteria *Q: - Stroke *Q Stroke Criteria *Q: - AMI *Q AMI Criteria *Q:
[2017-03-17] MEDS ORDERED: Ondansetron 4 MG Tab.DIS ONE (11:30)
[2017-03-17 11:52] VITALS: BP 131/81
--- NOTE | 2017-03-17 14:44 | US ---
DATE OF SERVICE: 03/17/17 CLINICAL DATA: RECURRENT PE. HX PANCREATIC CANCER. RIGHT LEG VENOUS DOPPLER Negative for DVT. LEFT LEG VENOUS DOPPLER Negative for DVT. [id number] MTDD
== END 2017-03-17 14:25 | disposition home or self-care (01) | DRG 949 ==
LOC: LB.ED 15:42 → UNDOADMIN 16:15 → LB.MS 16:15
PROVIDERS: ADMIT Family Medicine; ATTEND Family Medicine
DX: T45.1X5D Adverse effect of antineoplastic and immunosuppressive drugs, subsequent encounter (principal); I26.99 Other pulmonary embolism without acute cor pulmonale; C25.9 Malignant neoplasm of pancreas, unspecified; C79.9 Secondary malignant neoplasm of unspecified site; K56.69 Other intestinal obstruction; J98.11 Atelectasis; E86.0 Dehydration; R11.2 Nausea with vomiting, unspecified; R19.7 Diarrhea, unspecified; R63.0 Anorexia; Z79.82 Long term (current) use of aspirin; Z79.01 Long term (current) use of anticoagulants; G47.9 Sleep disorder, unspecified; G89.3 Neoplasm related pain (acute) (chronic); R63.4 Abnormal weight loss
CPT/HCPCS: 36415; 74176; 80048; 80053; 83605; 83735; 85025; 87040; 87493; 93970; 96361; 96372; 96374; 96375; 96376; 99284-25; A9270-GY; G0378; J0456; J0696; J1100; J1170; J1626; J1650; J1940; J2405; J2550; J2765; J7030; J7050

== ENCOUNTER 2017-03-19 17:31 | Inpatient (IN) | payer OTHER ==
[2017-03-19] MEDS: ENOXAPARIN 60 MG SQ SCH (18:00)
[2017-03-19] MEDS ORDERED: Nystatin Susp 100,000 Unit/ML 5 ML UD Cup PO PRN (18:31)
[2017-03-19] MEDS ORDERED: Loperamide 2 MG Cap PO PRN (18:31)
[2017-03-19] MEDS ORDERED: Prochlorperazine 10 MG Tab PO PRN (18:31)
--- NOTE | 2017-03-19 18:42 | EDM.PDOC ---
ED HPI GENERAL MEDICAL PROBLEM - General Chief Complaint: General Stated Complaint: N/V/Emesis Pancreatic CA Time Seen by Provider: 03/19/17 18:00 Source of Information: Reports: Patient, Family History Limitations: Reports: No Limitations - History of Present Illness INITIAL COMMENTS - FREE TEXT/NARRATIVE: This is a 56yo M here for abdominal pain with distension. He has had nausea and vomiting the past few days with inability to eat the past 24hrs and increasing abdominal pain. Patient has had this episode in the recent past with improvement with inpatient admission and fluid resuscitation. Patient has a PMH of metastatic adenocarcinoma of the pancreas. He is pending further Chemo treatment and will be leaving Thursday. Onset: Sudden Duration: Day(s):, Getting Worse Severity: Moderate Improves with: Reports: None Worsens with: Reports: None Associated Symptoms: Reports: Loss of Appetite, Nausea/Vomiting - Related Data Allergies Allergy/AdvReac Type Severity Reaction Status Date / Time No Known Allergies Allergy Verified 01/30/17 16:12 Home Meds: Home Meds DULoxetine HCl [Duloxetine HCl] 60 mg PO DAILY 03/04/17 [History] Loperamide HCl [Imodium A-D] 2 mg PO Q2HR PRN 03/04/17 [History] Nystatin 100,000 unit PO QID PRN 03/04/17 [History] Prochlorperazine Maleate 10 mg PO QID PRN 03/04/17 [History] Enoxaparin [Lovenox] 60 mg SQ BID 03/15/17 [History] Past Medical History Respiratory History: Reports: PE Other Respiratory History: 2 PE left side diagnosed Thursday at [facility] 100 % receiving lovenox 60mg bid Gastrointestinal History: Reports: Bowel Obstruction Oncologic (Cancer) History: Reports: Pancreatic, Other (See Below) Other Oncologic History: Hx Pancreatic Adenocarcinoma, will restart chemo - Past Surgical History Respiratory Surgical History: Reports: None Oncologic Surgical History: Reports: None Social & Family History - Family History Family Medical History: Noncontributory - Tobacco Use Smoking Status *Q: Never Smoker Second Hand Smoke Exposure: No - Caffeine Use Caffeine Use: Reports: Coffee - Recreational Drug Use Recreational Drug Use: No ED ROS GENERAL - Review of Systems Review Of Systems: ROS reveals no pertinent complaints other than HPI. ED EXAM, GENERAL - Physical Exam Exam: See Below Exam Limited By: No Limitations General Appearance: Alert, Moderate Distress, Thin, Cachetic Eye Exam: Bilateral Eye: EOMI Ears: Normal External Exam Nose: Normal Inspection Throat/Mouth: Normal Inspection Head: Atraumatic, Normocephalic Neck: Normal Inspection Respiratory/Chest: No Respiratory Distress, Lungs Clear, Normal Breath Sounds Cardiovascular: Normal Peripheral Pulses, Regular Rate, Rhythm Peripheral Pulses: 2+: Dorsalis Pedis (L), Dorsalis Pedis (R) GI/Abdominal: Distended, Tender, Abnormal Bowel Sounds Extremities: Normal Inspection Neurological: Alert, Oriented, CN II-XII Intact Psychiatric: Normal Affect, Normal Mood Skin Exam: Warm, Dry, Intact Course - Orders/Labs/Meds Orders: Active Orders 24 hr Category Date Time Status Patient Status [ADT] Routine ADT 03/19/17 18:29 Ordered Ambulate [RC] PER UNIT ROUTINE Care 03/19/17 18:29 Ordered Oxygen Therapy [RC] PRN Care 03/19/17 18:29 Ordered Vital Signs [RC] QSHIFT Care 03/19/17 18:29 Ordered Full Liquid Diet [DIET] Diet 03/19/17 Dinner Ordered DULoxetine HCl [Duloxetine HCl] Med 03/20/17 08:00 Ordered 60 mg PO DAILY Dexamethasone Med 03/19/17 18:45 Ordered 4 mg IVPUSH Q6H Dextrose 5%-Normal Saline @ 150 MLS/HR(1000ml) Med 03/19/17 18:45 Ordered Dextrose 5%-0.9% NaCl [Dextrose 5%-Normal Saline] 1,000 ml IV ASDIRECTED Enoxaparin [Lovenox] Med 03/19/17 20:00 Ordered 60 mg SQ BID Loperamide HCl [Imodium A-D] Med 03/19/17 18:31 Ordered 2 mg PO Q2HR PRN Nystatin [Nystatin] Med 03/19/17 18:31 Ordered 100,000 unit PO QID PRN OLANZapine [ZyPREXA] Med 03/19/17 18:45 Ordered 5 mg PO DAILY Ondansetron [Zofran] Med 03/19/17 18:45 Ordered 4 mg IVPUSH Q4H Prochlorperazine Maleate [Prochlorperazine Maleate] Med 03/19/17 18:31 Ordered 10 mg PO QID PRN Medication Orders Dexamethasone (Dexamethasone) 4 mg IVPUSH Q6H [facility] Non-Formulary Medication (Duloxetine Hcl [Duloxetine Hcl]) 60 mg PO DAILY [facility] Non-Formulary Medication (Enoxaparin [Lovenox]) 60 mg SQ BID [facility] Non-Formulary Medication (Loperamide Hcl [Imodium A-D]) 2 mg PO Q2HR PRN PRN Reason: Diarrhea Non-Formulary Medication (Nystatin [Nystatin]) 100,000 unit PO QID PRN PRN Reason: Other Non-Formulary Medication (Prochlorperazine Maleate [Prochlorperazine Maleate]) 10 mg PO QID PRN PRN Reason: Nausea Olanzapine (Zyprexa) 5 mg PO DAILY [facility] Ondansetron HCl (Zofran) 4 mg IVPUSH Q4H [facility] Meds: Medications Generic Name Dose Route Start Last Admin Trade Name Freq PRN Reason Stop Dose Admin Dexamethasone 4 mg 03/19/17 18:45 Dexamethasone IVPUSH Q6H [facility] Non-Formulary Medication 60 mg 03/20/17 08:00 Duloxetine Hcl [Duloxetine Hcl] PO DAILY [facility] Non-Formulary Medication 60 mg 03/19/17 20:00 Enoxaparin [Lovenox] SQ BID [facility] Non-Formulary Medication 2 mg 03/19/17 18:31 Loperamide Hcl [Imodium A-D] PO Q2HR PRN Diarrhea Non-Formulary Medication 100,000 unit 03/19/17 18:31 Nystatin [Nystatin] PO QID PRN Other Non-Formulary Medication 10 mg 03/19/17 18:31 Prochlorperazine Maleate [Prochlorperazine Maleate] PO QID PRN Nausea Olanzapine 5 mg 03/19/17 18:45 Zyprexa PO DAILY [facility] Ondansetron HCl 4 mg 03/19/17 18:45 Zofran IVPUSH Q4H [facility] Departure - Departure Time of Disposition: 18:40 Disposition: Refer to Observation Condition: Fair Clinical Impression: Loss of appetite, Pancreatic adenocarcinoma, Metastatic adenocarcinoma, Abdominal distension Nausea & vomiting Qualifiers: Vomiting type: unspecified Vomiting Intractability: intractable Qualified Code( s): R11.2 - Nausea with vomiting, unspecified Abdominal pain Qualifiers: Abdominal location: generalized Qualified Code(s): R10.84 - Generalized abdominal pain - Discharge Information Forms: ED Department Discharge - Problem List & Annotations (1) Nausea & vomiting SNOMED Code(s): 80765405 Code(s): R11.2 - NAUSEA WITH VOMITING, UNSPECIFIED Status: Acute Priority : High Current Visit: Yes Qualifiers: Vomiting type: unspecified Vomiting Intractability: intractable Qualified Code(s): R11.2 - Nausea with vomiting, unspecified (2) Pancreatic adenocarcinoma SNOMED Code(s): 761704561, 271312587 Code(s): C25.9 - MALIGNANT NEOPLASM OF PANCREAS, UNSPECIFIED Status: Chronic Priority: High Current Visit: Yes (3) Decreased appetite SNOMED Code(s): 77679113 Code(s): R63.0 - ANOREXIA Status: Acute Priority: High Current Visit: Yes (4) Weight loss SNOMED Code(s): 369040184, 442721561 Code(s): R63.4 - ABNORMAL WEIGHT LOSS Status: Acute Priority: High Current Visit: Yes (5) Chemotherapy induced nausea and vomiting SNOMED Code(s): 536420906 Code(s): R11.2 - NAUSEA WITH VOMITING, UNSPECIFIED; T45.1X5A - ADVERSE EFFECT OF ANTINEOPLASTIC AND IMMUNOSUP DRUGS, INIT Status: Acute Priority: High Current Visit: Yes (6) Pulmonary embolism on left SNOMED Code(s): 92119680, 32181065 Code(s): I26.99 - OTHER PULMONARY EMBOLISM WITHOUT ACUTE COR PULMONALE Status: Acute Priority: High Current Visit: Yes (7) Chemotherapy adverse reaction SNOMED Code(s): 070171697 Code(s): T45.1X5A - ADVERSE EFFECT OF ANTINEOPLASTIC AND IMMUNOSUP DRUGS, INIT Status: Acute Priority: High Current Visit: Yes Qualifiers: Encounter type: subsequent encounter Qualified Code(s): T45.1X5D - Adverse effect of antineoplastic and immunosuppressive drugs, subsequent encounter (8) Abdominal pain SNOMED Code(s): 75909486 Code(s): R10.9 - UNSPECIFIED ABDOMINAL PAIN Status: Acute Priority: High Current Visit: Yes Qualifiers: Abdominal location: lower abdomen, unspecified Qualified Code(s): R10.30 - Lower abdominal pain, unspecified (9) Abdominal distension SNOMED Code(s): 93920179 Code(s): R14.0 - ABDOMINAL DISTENSION (GASEOUS) Status: Acute Priority: High Current Visit: Yes (10) Metastatic adenocarcinoma SNOMED Code(s): 806410181, 495856113 Code(s): C79.9 - SECONDARY MALIGNANT NEOPLASM OF UNSPECIFIED SITE Status: Acute Priority: High Current Visit: Yes - Problem List Review Problem List Initiated/Reviewed/Updated: Yes - My Orders Last 24 Hours: My Active Orders 03/19/17 18:29 Patient Status [ADT] Routine Ambulate [RC] PER UNIT ROUTINE Oxygen Therapy [RC] PRN Vital Signs [RC] QSHIFT 03/19/17 18:31 Loperamide HCl [Imodium A-D] 2 mg PO Q2HR PRN Nystatin [Nystatin] 100,000 unit PO QID PRN Prochlorperazine Maleate [Prochlorperazine Maleate] 10 mg PO QID PRN 03/19/17 18:45 Dexamethasone 4 mg IVPUSH Q6H Dextrose 5%-Normal Saline @ 150 MLS/HR(1000ml) Dextrose 5%-0.9% NaCl [Dextrose 5 %-Normal Saline] 1,000 ml IV ASDIRECTED OLANZapine [ZyPREXA] 5 mg PO DAILY Ondansetron [Zofran] 4 mg IVPUSH Q4H 03/19/17 20:00 Enoxaparin [Lovenox] 60 mg SQ BID 03/19/17 Dinner Full Liquid Diet [DIET] 03/20/17 08:00 DULoxetine HCl [Duloxetine HCl] 60 mg PO DAILY - Assessment/Plan Last 24 Hours: My Active Orders 03/19/17 18:29 Patient Status [ADT] Routine Ambulate [RC] PER UNIT ROUTINE Oxygen Therapy [RC] PRN Vital Signs [RC] QSHIFT 03/19/17 18:31 Loperamide HCl [Imodium A-D] 2 mg PO Q2HR PRN Nystatin [Nystatin] 100,000 unit PO QID PRN Prochlorperazine Maleate [Prochlorperazine Maleate] 10 mg PO QID PRN 03/19/17 18:45 Dexamethasone 4 mg IVPUSH Q6H Dextrose 5%-Normal Saline @ 150 MLS/HR(1000ml) Dextrose 5%-0.9% NaCl [Dextrose 5 %-Normal Saline] 1,000 ml IV ASDIRECTED OLANZapine [ZyPREXA] 5 mg PO DAILY Ondansetron [Zofran] 4 mg IVPUSH Q4H 03/19/17 20:00 Enoxaparin [Lovenox] 60 mg SQ BID 03/19/17 Dinner Full Liquid Diet [DIET] 03/20/17 08:00 DULoxetine HCl [Duloxetine HCl] 60 mg PO DAILY Plan: Patient placed in observation and will be fluid hydrated and started on medications to prevent chemo induced nausea and vomiting. Patient will be started on IV pain medications and given stool softeners. Diet will be full liquid until BM to advance. Patient labs in am.
[2017-03-19] MEDS: Ondansetron 4 MG/2 ML SDV IVPUSH SCH (19:01)
[2017-03-19] MEDS: Dexamethasone 4 MG/ML SDV IVPUSH SCH (19:01)
[2017-03-19] MEDS: Dextrose 5%-0.9% NaCl 1,000 ML IV SCH ×2 (19:01→23:39)
[2017-03-19] MEDS: HYDROmorphone 2 MG/ML Syringe IVPUSH PRN (19:50)
[2017-03-19] MEDS ORDERED: Zolpidem 5 MG Tab PO ONE (22:22)
[2017-03-19] MEDS: Polyethylene Glycol 3350 Powder 17 GM Packet PO SCH (22:34)
[2017-03-19] MEDS: OLANZapine 5 MG Tab PO SCH (22:38)
[2017-03-20] MEDS: ENOXAPARIN 60 MG SQ SCH ×2 (07:24→17:56)
[2017-03-20] MEDS: Ondansetron 4 MG/2 ML SDV IVPUSH SCH ×8 (07:25→23:00)
[2017-03-20] MEDS: Dexamethasone 4 MG/ML SDV IVPUSH SCH ×4 (07:26→18:39)
[2017-03-20] MEDS: HYDROmorphone 2 MG/ML Syringe IVPUSH PRN ×4 (07:27→23:00)
[2017-03-20] MEDS: Dextrose 5%-0.9% NaCl 1,000 ML IV SCH (07:30)
[2017-03-20] MEDS: Polyethylene Glycol 3350 Powder 17 GM Packet PO SCH (09:28)
[2017-03-20] MEDS: OLANZapine 5 MG Tab PO SCH (09:29)
[2017-03-20] MEDS ORDERED: ZOLPIDEM 10MG TABLET PO PRN (10:11)
--- NOTE | 2017-03-20 13:37 | PCM.PN ---
- General Info Date of Service: 03/20/17 Subjective Update: Patient states he has improved a little but continues to have nausea. He was able to keep down cream of wheat this am. He denies other concerns. - Review of Systems General: Reports: Weakness Pulmonary: Reports: no symptoms Cardiovascular: Reports: No Symptoms Gastrointestinal: Reports: Decreased appetite, Nausea, Vomiting Neurological: Reports: Weakness Psychiatric: Reports: no symptoms - Patient Data Vitals - most recent: Last Vital Signs Temp 37.2 C 03/20/17 07:01 Pulse 92 03/20/17 07:01 Resp 16 03/20/17 07:01 BP 148/70 H 03/20/17 07:01 Pulse Ox 98 03/20/17 07:01 Weight - most recent: 62.312 kg I&O - last 24 hours: Intake & Output 03/19/17 03/20/17 03/20/17 22:59 06:59 14:59 Output Total 400 Balance -400 Lab Results last 24 hrs: Laboratory Results - last 24 hr 03/20/17 03/20/17 Range/Units 07:25 07:25 WBC 4.4 D (4.0-11.0) K/uL RBC 3.79 L (4.50-6.50) M/uL Hgb 11.6 L (13.0-18.0) g/dL Hct 34.4 L (40.0-54.0) % MCV 91 (76-96) fL MCH 30.6 (27.0-32.0) pg MCHC 33.7 (31.0-35.0) g/dL RDW 14.3 (11.0-16.0) % Plt Count 96 L (150-400) K/uL MPV 10.1 H (6.0-10.0) fL Neut % (Auto) 64.9 (45.0-70.0) % Lymph % (Auto) 22.4 (20.0-40.0) % [place] % (Auto) 11.8 H (3.0-10.0) % Eos % (Auto) 0.7 L (1.0-5.0) % Baso % (Auto) 0.2 (0.0-0.5) % Neut # (Auto) 2.87 (2.00-7.50) K/uL Lymph # (Auto) 0.99 L (1.50-4.00) K/uL [place] # (Auto) 0.52 (0.20-0.80) K/uL Eos # (Auto) 0.03 L (0.04-0.40) K/uL Baso # (Auto) 0.01 L (0.02-0.10) K/uL Sodium 139 (136-145) mmol/L Potassium 3.9 (3.5-5.1) mmol/L Chloride 106 (98-107) mmol/L Carbon Dioxide 26.6 (21.0-32.0) mmol/L Anion Gap 10.3 (5.0-15.0) mmol/L BUN 7 L D (8-26) mg/dL Creatinine 0.81 (0.70-1.30) mg/dL Est Cr Clr Drug Dosing TNP Estimated GFR (MDRD) > 60 (>60) MLS/MIN BUN/Creatinine Ratio 8.6 (6-25) Glucose 142 H (74-100) mg/dL Calcium 8.4 L (8.5-10.1) mg/dL Total Bilirubin 0.5 (0.0-1.0) mg/dL AST 30 (15-37) U/L ALT 98 H (12-78) U/L Alkaline Phosphatase 176 H (46-116) U/L Total Protein 5.1 L (6.4-8.2) g/dL Albumin 2.6 L (3.4-5.0) g/dL Globulin 2.5 (2.2-4.2) g/dL Albumin/Globulin Ratio 1.0 (0.8-2.0) Med Orders - Current: Current Medications Dexamethasone (Dexamethasone) 4 mg IVPUSH Q6H [facility] Last Admin: 03/20/17 13:21 Dose: 4 mg Hydromorphone HCl (Dilaudid) 1 mg IVPUSH Q4H PRN PRN Reason: Abdominal Pain Last Admin: 03/20/17 13:20 Dose: 1 mg Potassium Chloride/Dextrose/Sod Cl (D5 Ns With 20 Meq Kcl) 1,000 mls @ 125 mls/ hr IV ASDIRECTED [facility] Loperamide HCl (Imodium) 2 mg PO Q2HR PRN PRN Reason: Diarrhea (Duloxetine Hcl [ Duloxetine Hcl] 30 Mg Cap 60 mg PO DAILY [facility] Last Admin: 03/20/17 09:05 Dose: 60 mg Non-Formulary Medication (Enoxaparin [Lovenox]) 60 mg SQ BID [facility] Last Admin: 03/20/17 07:24 Dose: 60 mg Zolpidem 10mg Tablet 1 each PO BEDTIME PRN PRN Reason: SLEEP Nystatin (Mycostatin) 5 ml PO QID PRN PRN Reason: Other Olanzapine (Zyprexa) 5 mg PO DAILY [facility] Last Admin: 03/20/17 09:29 Dose: 5 mg Ondansetron HCl (Zofran) 4 mg IVPUSH Q4H [facility] Last Admin: 03/20/17 13:21 Dose: 4 mg Polyethylene Glycol (Miralax) 17 gm PO BID [facility] Last Admin: 03/20/17 09:28 Dose: 8.5 gm Prochlorperazine Maleate (Compazine) 10 mg PO QID PRN PRN Reason: Nausea Discontinued Medications Dextrose/Sodium Chloride (Dextrose 5%-Normal Saline) 1,000 mls @ 150 mls/hr IV ASDIRECTED [facility] Last Admin: 03/19/17 23:39 Dose: 150 mls/hr Zolpidem Tartrate (Ambien) 10 mg PO ONETIME ONE Stop: 03/19/17 22:23 Last Admin: 03/19/17 22:34 Dose: 10 mg - Exam General: alert, oriented, cooperative HEENT: Pupils equal, Pupils reactive, EOMI Neck: supple Lungs: Clear to auscultation, Normal respiratory effort Cardiovascular: Regular Rate, Regular Rhythm Abdomen: bowel sounds present, soft, no tenderness Extremities: no edema Peripheral Pulses: 2+: Dorsalis Pedis (L), Dorsalis Pedis (R) Skin: warm, dry, intact Neurological: no new focal deficit Psy/Mental Status: alert, normal affect, normal mood - Problem List & Annotations (1) Nausea & vomiting SNOMED Code(s): 80018521 Code(s): R11.2 - NAUSEA WITH VOMITING, UNSPECIFIED Status: Acute Priority : High Current Visit: Yes Qualifiers: Vomiting type: unspecified Vomiting Intractability: intractable Qualified Code(s): R11.2 - Nausea with vomiting, unspecified (2) Pancreatic adenocarcinoma SNOMED Code(s): 823405086, 179293839 Code(s): C25.9 - MALIGNANT NEOPLASM OF PANCREAS, UNSPECIFIED Status: Chronic Priority: High Current Visit: Yes (3) Decreased appetite SNOMED Code(s): 01901355 Code(s): R63.0 - ANOREXIA Status: Acute Priority: High Current Visit: Yes (4) Weight loss SNOMED Code(s): 225156974, 516606125 Code(s): R63.4 - ABNORMAL WEIGHT LOSS Status: Acute Priority: High Current Visit: Yes (5) Chemotherapy induced nausea and vomiting SNOMED Code(s): 721396818 Code(s): R11.2 - NAUSEA WITH VOMITING, UNSPECIFIED; T45.1X5A - ADVERSE EFFECT OF ANTINEOPLASTIC AND IMMUNOSUP DRUGS, INIT Status: Acute Priority: High Current Visit: Yes (6) Pulmonary embolism on left SNOMED Code(s): 21988276, 79905506 Code(s): I26.99 - OTHER PULMONARY EMBOLISM WITHOUT ACUTE COR PULMONALE Status: Acute Priority: High Current Visit: Yes (7) Chemotherapy adverse reaction SNOMED Code(s): 076997677 Code(s): T45.1X5A - ADVERSE EFFECT OF ANTINEOPLASTIC AND IMMUNOSUP DRUGS, INIT Status: Acute Priority: High Current Visit: Yes Qualifiers: Encounter type: subsequent encounter Qualified Code(s): T45.1X5D - Adverse effect of antineoplastic and immunosuppressive drugs, subsequent encounter (8) Abdominal pain SNOMED Code(s): 41032331 Code(s): R10.9 - UNSPECIFIED ABDOMINAL PAIN Status: Acute Priority: High Current Visit: Yes Qualifiers: Abdominal location: lower abdomen, unspecified Qualified Code(s): R10.30 - Lower abdominal pain, unspecified (9) Abdominal distension SNOMED Code(s): 47117186 Code(s): R14.0 - ABDOMINAL DISTENSION (GASEOUS) Status: Acute Priority: High Current Visit: Yes (10) Metastatic adenocarcinoma SNOMED Code(s): 098133506, 631663392 Code(s): C79.9 - SECONDARY MALIGNANT NEOPLASM OF UNSPECIFIED SITE Status: Acute Priority: High Current Visit: Yes - Problem List Review Problem List Initiated/Reviewed/Updated: Yes - My Orders Last 24 Hours: My Active Orders 03/19/17 18:31 Loperamide [Imodium] 2 mg PO Q2HR PRN Nystatin [Mycostatin] 5 ml PO QID PRN Prochlorperazine [Compazine] 10 mg PO QID PRN 03/19/17 18:44 HYDROmorphone [Dilaudid] 1 mg IVPUSH Q4H PRN 03/19/17 18:45 Dexamethasone 4 mg IVPUSH Q6H OLANZapine [ZyPREXA] 5 mg PO DAILY Ondansetron [Zofran] 4 mg IVPUSH Q4H 03/19/17 20:00 Enoxaparin [Lovenox] 60 mg SQ BID Polyethylene Glycol 3350 [MiraLAX] 17 gm PO BID 03/20/17 08:00 DULoxetine HCl [Duloxetine HCl] 60 mg PO DAILY 03/20/17 10:11 Non-Formulary Medication [NF Drug] 1 each PO BEDTIME PRN 03/20/17 13:45 Dextrose 5%-0.9% NaCl with KCl [D5 NS with 20 mEq KCl] 1,000 ml IV ASDIRECTED - Plan Plan:: Discussed plan of care. Patient will be continued on current meds and management as well as fluid hydration. Discussed scheduling fluid hydration outpatient for standing orders. Negative Upper ext U/S. Signed out to Dr. Mackay for this weekend.
[2017-03-20] MEDS ORDERED: Dextrose 5%-0.9% NaCl with KCl 1,000 ML ONE (15:13)
[2017-03-20] MEDS: Dextrose 5%-0.9% NaCl with KCl 1,000 ML IV SCH ×2 (15:55→23:02)
[2017-03-20] MEDS ORDERED: Zolpidem 5 MG Tab PO SCH (20:00)
[2017-03-21] MEDS: Polyethylene Glycol 3350 Powder 17 GM Packet PO SCH ×3 (00:19→20:00)
[2017-03-21] MEDS: Dexamethasone 4 MG/ML SDV IVPUSH SCH ×4 (00:58→18:45)
[2017-03-21] MEDS: Ondansetron 4 MG/2 ML SDV IVPUSH SCH ×5 (02:40→18:36)
[2017-03-21] MEDS: ENOXAPARIN 60 MG SQ SCH ×2 (06:40→18:02)
[2017-03-21] MEDS: Dextrose 5%-0.9% NaCl with KCl 1,000 ML IV SCH ×3 (06:46→22:09)
[2017-03-21] MEDS: HYDROmorphone 2 MG/ML Syringe IVPUSH PRN ×2 (09:30→17:54)
--- NOTE | 2017-03-21 10:30 | PCM.PN ---
- General Info Date of Service: 03/21/17 Admission Dx/Problem (Free Text): Nurse called last night around 7PM with patient c/o feeling bloated in his abdomen. No nausea or vomiting. He has not passed flatus all day. Mild abdominal pain. I did evaluate patient, He claims he has been having gradual onset of abdominal distension today to the point now he feel tight in his abdomen. Has not have bowel movement today and has not been passing flatus. Has nausea but no vomiting. He had just had his supper to night and his belly got more distended. Pt was evaluated, he has hyperactive bowel sound with distension. Abdominal xray upright done XI, shows bowel obstruction. Pt has been kept NPO , IV hydration and NG tube placed under LCWS and drained bilious drainage with food particles. Today, patient is feeling better, still feels distended. No abdominal pain. he feels his belly is tight. No fever or chills. Not passing flatus still. Functional Status: Reports: pain controlled, ambulating, urinating, other (MNG tube) - Review of Systems General: Denies: Fever, Weakness, Fatigue HEENT: Denies: sinus congestion, sore throat Pulmonary: Denies: shortness of breath, hemoptysis, wheezing Cardiovascular: Denies: Chest Pain, Lightheadedness Gastrointestinal: Reports: Abdominal pain. Denies: Diarrhea, Flatus, Nausea, Vomiting Genitourinary: Denies: dysuria, frequency Musculoskeletal: Denies: joint pain, joint swelling Skin: Denies: bruising, pruritis, rash Neurological: Denies: Confusion, Dizziness - Patient Data Vitals - most recent: Last Vital Signs Temp 98 F 03/21/17 02:53 Pulse 84 03/21/17 09:00 Resp 15 03/21/17 09:00 BP 128/94 H 03/21/17 09:00 Pulse Ox 94 L 03/21/17 09:00 Weight - most recent: 62.312 kg I&O - last 24 hours: Intake & Output 03/20/17 03/21/17 03/21/17 22:59 06:59 14:59 Intake Total 1800 Output Total 1450 Balance 350 Lab Results last 24 hrs: Laboratory Results - last 24 hr 03/21/17 03/21/17 03/21/17 Range/Units 08:30 08:30 08:30 WBC 7.7 D (4.0-11.0) K/uL RBC 3.87 L (4.50-6.50) M/uL Hgb 11.9 L (13.0-18.0) g/dL Hct 35.8 L (40.0-54.0) % MCV 93 (76-96) fL MCH 30.7 (27.0-32.0) pg MCHC 33.2 (31.0-35.0) g/dL RDW 14.6 (11.0-16.0) % Plt Count 119 L D (150-400) K/uL MPV 9.9 (6.0-10.0) fL Neut % (Auto) 89.6 H (45.0-70.0) % Lymph % (Auto) 5.6 L (20.0-40.0) % [place] % (Auto) 4.7 (3.0-10.0) % Eos % (Auto) 0.0 L (1.0-5.0) % Baso % (Auto) 0.1 (0.0-0.5) % Neut # (Auto) 6.88 (2.00-7.50) K/uL Lymph # (Auto) 0.43 L (1.50-4.00) K/uL [place] # (Auto) 0.36 (0.20-0.80) K/uL Eos # (Auto) 0.00 L (0.04-0.40) K/uL Baso # (Auto) 0.01 L (0.02-0.10) K/uL Sodium 137 (136-145) mmol/L Potassium 4.3 (3.5-5.1) mmol/L Chloride 105 (98-107) mmol/L Carbon Dioxide 26.8 (21.0-32.0) mmol/L Anion Gap 9.5 (5.0-15.0) mmol/L BUN 5 L D (8-26) mg/dL Creatinine 0.80 (0.70-1.30) mg/dL Est Cr Clr Drug Dosing TNP Estimated GFR (MDRD) > 60 (>60) MLS/MIN BUN/Creatinine Ratio 6.3 (6-25) Glucose 153 H (74-100) mg/dL Calcium 8.5 (8.5-10.1) mg/dL Total Bilirubin 0.5 (0.0-1.0) mg/dL AST 24 (15-37) U/L ALT 93 H (12-78) U/L Alkaline Phosphatase 178 H (46-116) U/L Total Protein 5.4 L (6.4-8.2) g/dL Albumin 2.7 L (3.4-5.0) g/dL Globulin 2.7 (2.2-4.2) g/dL Albumin/Globulin Ratio 1.0 (0.8-2.0) Amylase 37 (25-115) U/L Lipase 117 (73-393) U/L Med Orders - Current: Current Medications Dexamethasone (Dexamethasone) 4 mg IVPUSH Q6H [facility] Last Admin: 03/21/17 06:17 Dose: 4 mg Hydromorphone HCl (Dilaudid) 1 mg IVPUSH Q4H PRN PRN Reason: Abdominal Pain Last Admin: 03/21/17 09:30 Dose: 1 mg Potassium Chloride/Dextrose/Sod Cl (D5 Ns With 20 Meq Kcl) 1,000 mls @ 125 mls/ hr IV ASDIRECTED [facility] Last Admin: 03/21/17 06:46 Dose: 125 mls/hr Loperamide HCl (Imodium) 2 mg PO Q2HR PRN PRN Reason: Diarrhea (Duloxetine Hcl [ Duloxetine Hcl] 30 Mg Cap 60 mg PO DAILY [facility] Last Admin: 03/20/17 09:05 Dose: 60 mg Zolpidem 10mg Tablet 1 each PO BEDTIME PRN PRN Reason: SLEEP Non-Formulary Medication (Enoxaparin [Lovenox]) 60 mg SQ BID@0600,1800 [facility] Last Admin: 03/21/17 06:40 Dose: 60 mg Nystatin (Mycostatin) 5 ml PO QID PRN PRN Reason: Other Olanzapine (Zyprexa) 5 mg PO DAILY [facility] Last Admin: 03/20/17 09:29 Dose: 5 mg Ondansetron HCl (Zofran) 4 mg IVPUSH Q4H [facility] Last Admin: 03/21/17 06:17 Dose: 4 mg Polyethylene Glycol (Miralax) 17 gm PO BID [facility] Last Admin: 03/21/17 00:19 Dose: Not Given Prochlorperazine Maleate (Compazine) 10 mg PO QID PRN PRN Reason: Nausea Discontinued Medications Dextrose/Sodium Chloride (Dextrose 5%-Normal Saline) 1,000 mls @ 150 mls/hr IV ASDIRECTED [facility] Last Admin: 03/20/17 07:30 Dose: 150 mls/hr Potassium Chloride/Dextrose/Sod Cl (D5 Ns With 20 Meq Kcl) Confirm Administered Dose 1,000 mls @ as directed .ROUTE .STK-MED ONE Stop: 03/20/17 15:14 Last Admin: 03/20/17 15:52 Dose: Not Given Non-Formulary Medication (Enoxaparin [Lovenox]) 60 mg SQ BID [facility] Last Admin: 03/20/17 17:56 Dose: 60 mg Zolpidem Tartrate (Ambien) 10 mg PO ONETIME ONE Stop: 03/19/17 22:23 Last Admin: 03/19/17 22:34 Dose: 10 mg - Exam General: alert, oriented HEENT: Pupils equal, Pupils reactive, EOMI, Mucous membr. moist/pink Neck: supple Lungs: Clear to auscultation, Normal respiratory effort Cardiovascular: Regular Rate, Regular Rhythm Abdomen: tenderness (mild periumbilical discomfort), distension, abnormal bowel sounds (hyper acitve tympanitic). No: rebound, guarding Back Exam: Normal Inspection, Full Range of Motion Extremities: edema (1+) Skin: warm, intact Neurological: no new focal deficit - Problem List & Annotations (1) Bowel obstruction SNOMED Code(s): 36832106 Code(s): K56.60 - UNSPECIFIED INTESTINAL OBSTRUCTION Status: Acute Priority: High Current Visit: No Qualifiers: Intestinal obstruction type: other intestinal obstruction Qualified Code(s) : K56.69 - Other intestinal obstruction - Problem List Review Problem List Initiated/Reviewed/Updated: Yes - My Orders Last 24 Hours: My Active Orders 03/20/17 20:07 Abdomen 1V Upright [CR] Routine 03/20/17 20:23 Gastrointestinal Tube Mgmt [RC] ASDIRECTED NG [Nasogastric Orogastric Tube Insertion] [OM.PC] Routine - Assessment Assessment:: Bowel obstruction - Plan Plan:: Discussed plan of care. Patient will be continued on current meds and management as well as fluid hydration. Discussed scheduling fluid hydration outpatient for standing orders. Negative Upper ext U/S. Signed out to Dr. Mackay for this weekend. 03/21/17: Pt has bowel obstruction.He has been kept NPO, IV hydration and NG decompression and draining fecal matter with bile. He has been afebrile and stable vitals. He has had 2 episodes of bowel obstruction in past 10 days, and he claims he has had 1 episode at [facility] and after the obstruction cleared at [place] they had CT abdomen done and reassured patient that he was fine. But he has had 3 episodes of Bowel obstruction in past one month, which does not appear to be related to biochemical abnormalities in his labs. He does not have any mechanical obstruction either. Hence I did repeat his amylase and lipase to make sure he does not have subacute pancreatic causing this, and they are normal. Will continue conservative management for bowel obstruction for now. the obstruction should resolve in next 24 hrs. Will repeat BMP and AXR upright in am.
[2017-03-21] MEDS: OLANZapine 5 MG Tab PO SCH (11:49)
[2017-03-21] MEDS ORDERED: Enoxaparin 60 MG/0.6 ML Syringe ONE (17:09)
[2017-03-21] MEDS: LORazepam 2 MG/ML MDV IVPUSH PRN ×2 (22:12→22:14)
[2017-03-22] MEDS: Dextrose 5%-0.9% NaCl with KCl 1,000 ML IV SCH ×3 (05:52→21:59)
[2017-03-22] MEDS ORDERED: Pantoprazole 40 MG Vial IVPUSH ONE (06:08)
[2017-03-22] MEDS: ENOXAPARIN 60 MG SQ SCH (06:18)
[2017-03-22] MEDS: HYDROmorphone 2 MG/ML Syringe IVPUSH PRN ×4 (09:02→22:01)
[2017-03-22] MEDS: Ondansetron 4 MG/2 ML SDV IVPUSH PRN ×4 (09:02→22:01)
[2017-03-22] MEDS: Polyethylene Glycol 3350 Powder 17 GM Packet PO SCH (09:11)
[2017-03-22] MEDS: OLANZapine 5 MG Tab PO SCH (09:11)
--- NOTE | 2017-03-22 10:51 | PCM.PN ---
- General Info Date of Service: 03/22/17 Subjective Update: Pt today has been having nausea again. He has drained about 300 cc of NG drainage over night. he did have some bloody drainage, Which was gastocult positive for blood. He been started on protonix 40mg IV. I have held his lovenox as there is active coffee ground drainage from the NG tube. No fever or chills. Still feels bloated, but better than past 2 days ago. Still has passed some flatus. He was very nauseous today morning, Zofran has helped, feeling better now. Functional Status: Reports: pain controlled, urinating. Denies: tolerating diet - Review of Systems General: Reports: Weakness. Denies: Fever, Fatigue HEENT: Denies: sinus congestion, sore throat, visual changes Pulmonary: Denies: shortness of breath, cough, sputum, hemoptysis, wheezing Cardiovascular: Denies: Chest Pain, Palpitations Gastrointestinal: Reports: Abdominal pain, Nausea. Denies: Flatus, Hematochezia , Melena, Vomiting Genitourinary: Denies: frequency, burning Musculoskeletal: Denies: joint pain, joint swelling Skin: Denies: pruritis, rash - Patient Data Vitals - most recent: Last Vital Signs Temp 98 F 03/22/17 06:55 Pulse 80 03/22/17 06:55 Resp 16 03/22/17 06:55 BP 124/90 03/22/17 06:55 Pulse Ox 96 03/22/17 06:55 Weight - most recent: 62.312 kg I&O - last 24 hours: Intake & Output 03/21/17 03/22/17 03/22/17 22:59 06:59 14:59 Intake Total 1500 Output Total 1400 Balance 100 Lab Results last 24 hrs: Laboratory Results - last 24 hr 03/22/17 03/22/17 Range/Units 09:10 09:10 WBC 10.8 D (4.0-11.0) K/uL RBC 4.32 L (4.50-6.50) M/uL Hgb 13.1 (13.0-18.0) g/dL Hct 39.3 L (40.0-54.0) % MCV 91 (76-96) fL MCH 30.3 (27.0-32.0) pg MCHC 33.3 (31.0-35.0) g/dL RDW 14.8 (11.0-16.0) % Plt Count 126 L (150-400) K/uL MPV 9.7 (6.0-10.0) fL Neut % (Auto) 72.8 H (45.0-70.0) % Lymph % (Auto) 16.6 L (20.0-40.0) % [place] % (Auto) 10.2 H (3.0-10.0) % Eos % (Auto) 0.3 L (1.0-5.0) % Baso % (Auto) 0.1 (0.0-0.5) % Neut # (Auto) 7.88 H (2.00-7.50) K/uL Lymph # (Auto) 1.79 (1.50-4.00) K/uL [place] # (Auto) 1.10 H (0.20-0.80) K/uL Eos # (Auto) 0.03 L (0.04-0.40) K/uL Baso # (Auto) 0.01 L (0.02-0.10) K/uL Sodium 138 (136-145) mmol/L Potassium 4.2 (3.5-5.1) mmol/L Chloride 104 (98-107) mmol/L Carbon Dioxide 27.6 (21.0-32.0) mmol/L Anion Gap 10.6 (5.0-15.0) mmol/L BUN 7 L D (8-26) mg/dL Creatinine 0.93 (0.70-1.30) mg/dL Est Cr Clr Drug Dosing TNP Estimated GFR (MDRD) > 60 (>60) MLS/MIN BUN/Creatinine Ratio 7.5 (6-25) Glucose 106 H D (74-100) mg/dL Calcium 8.7 (8.5-10.1) mg/dL Med Orders - Current: Current Medications Hydromorphone HCl (Dilaudid) 1 mg IVPUSH Q4H PRN PRN Reason: Abdominal Pain Last Admin: 03/22/17 09:02 Dose: 1 mg Potassium Chloride/Dextrose/Sod Cl (D5 Ns With 20 Meq Kcl) 1,000 mls @ 125 mls/ hr IV ASDIRECTED [facility] Last Admin: 03/22/17 05:52 Dose: 125 mls/hr Loperamide HCl (Imodium) 2 mg PO Q2HR PRN PRN Reason: Diarrhea Lorazepam (Ativan) 0.5 mg IVPUSH BEDTIME PRN PRN Reason: Sleep Last Admin: 03/21/17 22:14 Dose: 0.5 mg (Duloxetine Hcl [ Duloxetine Hcl] 30 Mg Cap 60 mg PO DAILY [facility] Last Admin: 03/22/17 09:11 Dose: Not Given Zolpidem 10mg Tablet 1 each PO BEDTIME PRN PRN Reason: SLEEP Non-Formulary Medication (Enoxaparin [Lovenox]) 60 mg SQ BID@0600,1800 [facility] Last Admin: 03/22/17 06:18 Dose: Not Given Nystatin (Mycostatin) 5 ml PO QID PRN PRN Reason: Other Olanzapine (Zyprexa) 5 mg PO DAILY [facility] Last Admin: 03/22/17 09:11 Dose: Not Given Ondansetron HCl (Zofran) 4 mg IVPUSH Q4H PRN PRN Reason: Nausea/Vomiting Last Admin: 03/22/17 09:02 Dose: 4 mg Polyethylene Glycol (Miralax) 17 gm PO BID [facility] Last Admin: 03/22/17 09:11 Dose: Not Given Prochlorperazine Maleate (Compazine) 10 mg PO QID PRN PRN Reason: Nausea Discontinued Medications Dexamethasone (Dexamethasone) 4 mg IVPUSH Q6H [facility] Last Admin: 03/21/17 18:45 Dose: 4 mg Enoxaparin Sodium (Lovenox) Confirm Administered Dose 60 mg .ROUTE .STK-MED ONE Stop: 03/21/17 17:10 Last Admin: 03/21/17 18:01 Dose: Not Given Dextrose/Sodium Chloride (Dextrose 5%-Normal Saline) 1,000 mls @ 150 mls/hr IV ASDIRECTED [facility] Last Admin: 03/20/17 07:30 Dose: 150 mls/hr Potassium Chloride/Dextrose/Sod Cl (D5 Ns With 20 Meq Kcl) Confirm Administered Dose 1,000 mls @ as directed .ROUTE .STK-MED ONE Stop: 03/20/17 15:14 Last Admin: 03/20/17 15:52 Dose: Not Given Non-Formulary Medication (Enoxaparin [Lovenox]) 60 mg SQ BID [facility] Last Admin: 03/20/17 17:56 Dose: 60 mg Ondansetron HCl (Zofran) 4 mg IVPUSH Q4H [facility] Last Admin: 03/21/17 18:36 Dose: 4 mg Pantoprazole Sodium (Protonix Iv) 40 mg IVPUSH ONETIME ONE Stop: 03/22/17 06:09 Last Admin: 03/22/17 06:27 Dose: 40 mg Zolpidem Tartrate (Ambien) 10 mg PO ONETIME ONE Stop: 03/19/17 22:23 Last Admin: 03/19/17 22:34 Dose: 10 mg - Exam General: alert, oriented HEENT: Pupils equal, Pupils reactive, EOMI, Mucous membr. moist/pink Neck: supple Lungs: Clear to auscultation, Normal respiratory effort Cardiovascular: Regular Rate, Regular Rhythm Abdomen: tenderness (vague superficial discomfrot to palpation), distension ( improved from yesterday), abnormal bowel sounds (hyperactive bowel sounds). No : rebound, guarding - Problem List & Annotations (1) Bowel obstruction SNOMED Code(s): 10477048 Code(s): K56.60 - UNSPECIFIED INTESTINAL OBSTRUCTION Status: Acute Priority: High Current Visit: No Qualifiers: Intestinal obstruction type: other intestinal obstruction Qualified Code(s) : K56.69 - Other intestinal obstruction - Problem List Review Problem List Initiated/Reviewed/Updated: Yes - My Orders Last 24 Hours: My Active Orders 03/21/17 20:08 LORazepam [Ativan] 0.5 mg IVPUSH BEDTIME PRN 03/21/17 20:09 Ondansetron [Zofran] 4 mg IVPUSH Q4H PRN 03/22/17 06:13 Gastric Occult/pH Collection D [RC] ASDIRECTED 03/22/17 06:26 SCD [Sequential Compression Device] [OM.PC] Routine 03/22/17 08:00 Abdomen 1V Upright [CR] Routine - Assessment Assessment:: Bowel obstruction with poor differentiated Pancreatic adenocarcinoma - Plan Plan:: Discussed plan of care. Patient will be continued on current meds and management as well as fluid hydration. Discussed scheduling fluid hydration outpatient for standing orders. Negative Upper ext U/S. Signed out to Dr. Mackay for this weekend. 03/21/17: Pt has bowel obstruction.He has been kept NPO, IV hydration and NG decompression and draining fecal matter with bile. He has been afebrile and stable vitals. He has had 2 episodes of bowel obstruction in past 10 days, and he claims he has had 1 episode at [facility] and after the obstruction cleared at [place] they had CT abdomen done and reassured patient that he was fine. But he has had 3 episodes of Bowel obstruction in past one month, which does not appear to be related to biochemical abnormalities in his labs. He does not have any mechanical obstruction either. Hence I did repeat his amylase and lipase to make sure he does not have subacute pancreatic causing this, and they are normal. Will continue conservative management for bowel obstruction for now. the obstruction should resolve in next 24 hrs. Will repeat BMP and AXR upright in am. 03/22/17: Kindly see the [facility] too. Pt's lovenox and DEXAmethose has been stopped due to his NG secretion turning coffee ground. Not copious drainage, about 300cc over night. He has been started on IV protonix 40mg daily. His CBC and CMP are stable today. His hemoglobin was 13.1 today. Pt has had some nausea and abdominal discomfort, controlled on present regime. It ayoub been more than 24 hrs since obstruction, He has been passing flatus, will give another 24 hrs of conservative management and see if obstruction resolves. Will followup in AM. He might need surgical consultation. Also my concern is if he continue to have recurrent bowel obstruction, what will be his plan for nutrition post chemotherapy. As been planned for chemotherapy tomorrow.
[2017-03-22] MEDS: LORazepam 2 MG/ML MDV IVPUSH PRN (22:55)
--- NOTE | 2017-03-23 00:06 | CR ---
DATE OF SERVICE: 03/20/2017 CLINICAL DATA: Abdominal distension. UPRIGHT ABDOMEN The diaphragms are not included on this upright view. I cannot exclude free air. The colon is gas filled and moderately distended. There are multiple gas filled distended loops of small bowel. There are scattered air-fluid levels throughout the colon and small bowel. These findings are consistent with a distal obstruction or ileus. No other significant findings. [id number] [facility]
--- NOTE | 2017-03-23 00:54 | CR ---
DATE OF SERVICE: 03/22/2017 CLINICAL DATA: Bowel obstruction. UPRIGHT ABDOMEN Comparison is made to a prior exam dated 03/20/2017. An NG tube has been inserted and its distal tip is in the stomach. There are persistent air-fluid levels throughout the colon and small bowel consistent with a distal obstruction or ileus. The diaphragms are not included to exclude free air. [id number] [facility]
[2017-03-23] MEDS: Polyethylene Glycol 3350 Powder 17 GM Packet PO SCH ×2 (03:02→08:03)
[2017-03-23] MEDS: Dextrose 5%-0.9% NaCl with KCl 1,000 ML IV SCH (05:05)
[2017-03-23] MEDS: HYDROmorphone 2 MG/ML Syringe IVPUSH PRN ×2 (07:59→14:26)
[2017-03-23] MEDS: Ondansetron 4 MG/2 ML SDV IVPUSH PRN ×3 (07:59→22:13)
[2017-03-23] MEDS: ENOXAPARIN 60 MG SQ SCH (08:03)
[2017-03-23] MEDS: OLANZapine 5 MG Tab PO SCH (08:03)
[2017-03-23] MEDS: Pantoprazole 40 MG Vial IVPUSH SCH (08:22)
--- NOTE | 2017-03-23 11:19 | PCM.PN ---
- General Info Date of Service: 03/23/17 Admission Dx/Problem (Free Text): Bowel obstruction Pain management GI bleed Pancreatic adenoma Cachexia Subjective Update: P - Review of Systems General: Denies: Appetite HEENT: Reports: no symptoms Pulmonary: Reports: no symptoms Cardiovascular: Reports: No Symptoms Gastrointestinal: Reports: Abdominal pain, Decreased appetite, Nausea, Vomiting Genitourinary: Reports: no symptoms Musculoskeletal: Reports: no symptoms Neurological: Reports: No Symptoms Psychiatric: Reports: no symptoms - Patient Data Vitals - most recent: Last Vital Signs Temp 36.6 C 03/22/17 21:30 Pulse 86 03/22/17 21:30 Resp 16 03/22/17 21:30 BP 105/69 03/22/17 21:30 Pulse Ox 93 L 03/22/17 21:30 Weight - most recent: 62.312 kg I&O - last 24 hours: Intake & Output 03/22/17 03/23/17 03/23/17 22:59 06:59 14:59 Intake Total 1375 Output Total 850 420 Balance 525 -420 Med Orders - Current: Current Medications Hydromorphone HCl (Dilaudid) 1 mg IVPUSH Q4H PRN PRN Reason: Abdominal Pain Last Admin: 03/23/17 07:59 Dose: 1 mg Potassium Chloride/Dextrose/Sod Cl (D5 Ns With 20 Meq Kcl) 1,000 mls @ 125 mls/ hr IV ASDIRECTED [facility] Last Admin: 03/23/17 05:05 Dose: 125 mls/hr Lorazepam (Ativan) 0.5 mg IVPUSH BEDTIME PRN PRN Reason: Sleep Last Admin: 03/22/17 22:55 Dose: 0.5 mg (Duloxetine Hcl [ Duloxetine Hcl] 30 Mg Cap 60 mg PO DAILY [facility] Last Admin: 03/23/17 08:03 Dose: Not Given Zolpidem 10mg Tablet 1 each PO BEDTIME PRN PRN Reason: SLEEP Non-Formulary Medication (Enoxaparin [Lovenox]) 60 mg SQ BID@0600,1800 [facility] Last Admin: 03/23/17 08:03 Dose: Not Given Nystatin (Mycostatin) 5 ml PO QID PRN PRN Reason: Other Olanzapine (Zyprexa) 5 mg PO DAILY [facility] Last Admin: 03/23/17 08:03 Dose: Not Given Ondansetron HCl (Zofran) 4 mg IVPUSH Q4H PRN PRN Reason: Nausea/Vomiting Last Admin: 03/23/17 07:59 Dose: 4 mg Pantoprazole Sodium (Protonix Iv) 40 mg IVPUSH DAILY [facility] Last Admin: 03/23/17 08:22 Dose: 40 mg Polyethylene Glycol (Miralax) 17 gm PO BID [facility] Last Admin: 03/23/17 08:03 Dose: Not Given Prochlorperazine Maleate (Compazine) 10 mg PO QID PRN PRN Reason: Nausea Discontinued Medications Dexamethasone (Dexamethasone) 4 mg IVPUSH Q6H [facility] Last Admin: 03/21/17 18:45 Dose: 4 mg Enoxaparin Sodium (Lovenox) Confirm Administered Dose 60 mg .ROUTE .STK-MED ONE Stop: 03/21/17 17:10 Last Admin: 03/21/17 18:01 Dose: Not Given Dextrose/Sodium Chloride (Dextrose 5%-Normal Saline) 1,000 mls @ 150 mls/hr IV ASDIRECTED [facility] Last Admin: 03/20/17 07:30 Dose: 150 mls/hr Potassium Chloride/Dextrose/Sod Cl (D5 Ns With 20 Meq Kcl) Confirm Administered Dose 1,000 mls @ as directed .ROUTE .STMyRefers-MED ONE Stop: 03/20/17 15:14 Last Admin: 03/20/17 15:52 Dose: Not Given Loperamide HCl (Imodium) 2 mg PO Q2HR PRN PRN Reason: Diarrhea Non-Formulary Medication (Enoxaparin [Lovenox]) 60 mg SQ BID [facility] Last Admin: 03/20/17 17:56 Dose: 60 mg Ondansetron HCl (Zofran) 4 mg IVPUSH Q4H [facility] Last Admin: 03/21/17 18:36 Dose: 4 mg Pantoprazole Sodium (Protonix Iv) 40 mg IVPUSH ONETIME ONE Stop: 03/22/17 06:09 Last Admin: 03/22/17 06:27 Dose: 40 mg Zolpidem Tartrate (Ambien) 10 mg PO ONETIME ONE Stop: 03/19/17 22:23 Last Admin: 03/19/17 22:34 Dose: 10 mg - Exam General: alert, oriented, cooperative HEENT: Pupils equal, Pupils reactive, EOMI Neck: supple Lungs: Clear to auscultation, Normal respiratory effort Cardiovascular: Regular Rate, Regular Rhythm Abdomen: tenderness, distension, abnormal bowel sounds (hyperactive bowel sounds ) Back Exam: Normal Inspection Extremities: no edema Peripheral Pulses: 2+: Dorsalis Pedis (L), Dorsalis Pedis (R) Skin: warm, dry, intact Neurological: no new focal deficit Psy/Mental Status: alert, normal affect, normal mood - Problem List & Annotations (1) Nausea & vomiting SNOMED Code(s): 89576749 Code(s): R11.2 - NAUSEA WITH VOMITING, UNSPECIFIED Status: Acute Priority : High Current Visit: Yes Qualifiers: Vomiting type: unspecified Vomiting Intractability: intractable Qualified Code(s): R11.2 - Nausea with vomiting, unspecified (2) Pancreatic adenocarcinoma SNOMED Code(s): 483954730, 796141082 Code(s): C25.9 - MALIGNANT NEOPLASM OF PANCREAS, UNSPECIFIED Status: Chronic Priority: High Current Visit: Yes (3) Decreased appetite SNOMED Code(s): 84207628 Code(s): R63.0 - ANOREXIA Status: Acute Priority: High Current Visit: Yes (4) Weight loss SNOMED Code(s): 263463937, 142164830 Code(s): R63.4 - ABNORMAL WEIGHT LOSS Status: Acute Priority: High Current Visit: Yes (5) Chemotherapy induced nausea and vomiting SNOMED Code(s): 464424484 Code(s): R11.2 - NAUSEA WITH VOMITING, UNSPECIFIED; T45.1X5A - ADVERSE EFFECT OF ANTINEOPLASTIC AND IMMUNOSUP DRUGS, INIT Status: Acute Priority: High Current Visit: Yes (6) Pulmonary embolism on left SNOMED Code(s): 32097892, 72681251 Code(s): I26.99 - OTHER PULMONARY EMBOLISM WITHOUT ACUTE COR PULMONALE Status: Acute Priority: High Current Visit: Yes (7) Chemotherapy adverse reaction SNOMED Code(s): 699017835 Code(s): T45.1X5A - ADVERSE EFFECT OF ANTINEOPLASTIC AND IMMUNOSUP DRUGS, INIT Status: Acute Priority: High Current Visit: Yes Qualifiers: Encounter type: subsequent encounter Qualified Code(s): T45.1X5D - Adverse effect of antineoplastic and immunosuppressive drugs, subsequent encounter (8) Abdominal pain SNOMED Code(s): 41266757 Code(s): R10.9 - UNSPECIFIED ABDOMINAL PAIN Status: Acute Priority: High Current Visit: Yes Qualifiers: Abdominal location: lower abdomen, unspecified Qualified Code(s): R10.30 - Lower abdominal pain, unspecified (9) Abdominal distension SNOMED Code(s): 99074915 Code(s): R14.0 - ABDOMINAL DISTENSION (GASEOUS) Status: Acute Priority: High Current Visit: Yes (10) Metastatic adenocarcinoma SNOMED Code(s): 023673343, 151986528 Code(s): C79.9 - SECONDARY MALIGNANT NEOPLASM OF UNSPECIFIED SITE Status: Acute Priority: High Current Visit: Yes (11) Cachexia SNOMED Code(s): 624757980 Code(s): R64 - CACHEXIA Status: Acute Current Visit: Yes - Problem List Review Problem List Initiated/Reviewed/Updated: Yes - My Orders Last 24 Hours: My Active Orders 03/23/17 11:02 Patient Status [ADT] Routine - Assessment Assessment:: Bowel obstruction with poor differentiated Pancreatic adenocarcinoma - Plan Plan:: Discussed plan of care. Patient will be continued on current meds and management as well as fluid hydration. Discussed scheduling fluid hydration outpatient for standing orders. Negative Upper ext U/S. Signed out to Dr. Mackay for this weekend. 03/21/17: Pt has bowel obstruction.He has been kept NPO, IV hydration and NG decompression and draining fecal matter with bile. He has been afebrile and stable vitals. He has had 2 episodes of bowel obstruction in past 10 days, and he claims he has had 1 episode at [facility] and after the obstruction cleared at [place] they had CT abdomen done and reassured patient that he was fine. But he has had 3 episodes of Bowel obstruction in past one month, which does not appear to be related to biochemical abnormalities in his labs. He does not have any mechanical obstruction either. Hence I did repeat his amylase and lipase to make sure he does not have subacute pancreatic causing this, and they are normal. Will continue conservative management for bowel obstruction for now. the obstruction should resolve in next 24 hrs. Will repeat BMP and AXR upright in am. 03/22/17: Kindly see the [place] too. Pt's lovenox and DEXAmethose has been stopped due to his NG secretion turning coffee ground. Not copious drainage, about 300cc over night. He has been started on IV protonix 40mg daily. His CBC and CMP are stable today. His hemoglobin was 13.1 today. Pt has had some nausea and abdominal discomfort, controlled on present regime. It ayoub been more than 24 hrs since obstruction, He has been passing flatus, will give another 24 hrs of conservative management and see if obstruction resolves. Will followup in AM. He might need surgical consultation. Also my concern is if he continue to have recurrent bowel obstruction, what will be his plan for nutrition post chemotherapy. As been planned for chemotherapy tomorrow. 03/23/17 Patient admitted for Bowel obstruction. We will f/u xrays. His Bowel sounds are hyperactive and he has passed some gas but his abdomen continues to be quite tender and distended. We will continue NPO at this time but due to his cachexia and weight loss we will start a short term parenteral therapy. Continue to hold lovenox and dexamethasone at this time. Continue Protonix. We will repeat labs a needed. Will discuss plan of care with Oncology.
[2017-03-23] MEDS ORDERED: MVI, Adult with Vitamin K 10 ML, Thiamine 100 MG, Folic Acid 1 MG, Magnesium Sulfate 3 ... IV SCH ×5 (12:00)
[2017-03-23] MEDS: Fat Emulsion 250 ML IV SCH (13:24)
[2017-03-23] MEDS: MVI, Adult with Vitamin K 10 ML, Thiamine 100 MG, Folic Acid 1 MG, Magnesium Sulfate 3 ... IV SCH ×5 (13:28)
--- NOTE | 2017-03-23 14:37 | CR ---
DATE OF SERVICE: 03/23/17 CLINICAL DATA: Obstruction. UPRIGHT ABDOMEN: Comparison is made to a prior exam dated 03/22/17. The NG tube remains in place with its distal tip in the stomach. No evidence of free air. There are atelectatic changes in the right lung base with eventration of the right hemidiaphragm. There are persistent gas filled distended loops of small bowel throughout the abdomen and there is gas within the colon with air fluid levels throughout the small bowel and colon air fluid levels with the history of obstruction. The small bowel may be slightly less distended than on the prior study. No other interval changes. [id number] MTDD
[2017-03-23] MEDS: Dextrose 5% in Water 1,000 ML IV SCH (19:49)
[2017-03-23] MEDS: LORazepam 2 MG/ML MDV IVPUSH PRN (21:25)
[2017-03-23] MEDS ORDERED: Cyclobenzaprine 10 MG Tab PO ONE (21:33)
--- NOTE | 2017-03-23 21:36 | PCM.SN ---
- Free Text/Narrative Note: Patient complains of left neck pain and muscle discomfort causing a headache. Patient discussed medication use and trial of flexeril at bedtime - discussed sedation and effects and patient/family agree with plan. Discussed taking zyprexa and duloxetine orally and clamping NG tube for digestion. Patient has no stomach discomfort or sob. Lovenox held due to continued blood in NG aspirate.
[2017-03-24] MEDS: Dextrose 5% in Water 1,000 ML IV SCH ×2 (03:27→21:40)
--- NOTE | 2017-03-24 07:08 | PCM.PN ---
- General Info Date of Service: 03/24/17 Functional Status: Reports: pain controlled - Review of Systems General: Reports: No Symptoms HEENT: Reports: no symptoms Pulmonary: Reports: no symptoms Cardiovascular: Reports: No Symptoms Gastrointestinal: Reports: Decreased appetite, Nausea Genitourinary: Reports: no symptoms Musculoskeletal: Reports: no symptoms Skin: Reports: no symptoms Neurological: Reports: No Symptoms Psychiatric: Reports: no symptoms - Patient Data Vitals - most recent: Last Vital Signs Temp 36.2 C 03/23/17 22:20 Pulse 89 03/23/17 22:20 Resp 16 03/23/17 22:20 BP 112/79 03/23/17 22:20 Pulse Ox 95 03/23/17 22:20 Weight - most recent: 59.33 kg I&O - last 24 hours: Intake & Output 03/23/17 03/23/17 03/24/17 14:59 22:59 06:59 Intake Total 2000 Output Total 1550 2800 Balance 450 -2800 Med Orders - Current: Current Medications Hydromorphone HCl (Dilaudid) 1 mg IVPUSH Q4H PRN PRN Reason: Abdominal Pain Last Admin: 03/23/17 14:26 Dose: 1 mg Fat Emulsion Intravenous (Intralipid 20%) 250 mls @ 62.5 mls/hr IV DAILY [facility] Last Admin: 03/23/17 13:24 Dose: 62.5 mls/hr Dextrose/Water (Dextrose 5% In Water) 1,000 mls @ 125 mls/hr IV ASDIRECTED [facility] Last Admin: 03/24/17 03:27 Dose: 125 mls/hr Multivitamins/Minerals 10 ml/Thiamine HCl 100 mg/ Folic Acid 1 mg/ Magnesium Sulfate 3 gm/ Dextrose/Water 1,017.2 mls @ 150 mls/hr IV DAILY@1200 [facility] Last Admin: 03/23/17 13:28 Dose: 150 mls/hr Lorazepam (Ativan) 0.5 mg IVPUSH BEDTIME PRN PRN Reason: Sleep Last Admin: 03/23/17 21:25 Dose: 0.5 mg (Duloxetine Hcl [ Duloxetine Hcl] 30 Mg Cap 60 mg PO DAILY [facility] Last Admin: 03/23/17 08:03 Dose: Not Given Zolpidem 10mg Tablet 1 each PO BEDTIME PRN PRN Reason: SLEEP Non-Formulary Medication (Enoxaparin [Lovenox]) 60 mg SQ BID@0600,1800 [facility] Last Admin: 03/23/17 08:03 Dose: Not Given Nystatin (Mycostatin) 5 ml PO QID PRN PRN Reason: Other Olanzapine (Zyprexa) 5 mg PO DAILY [facility] Last Admin: 03/23/17 08:03 Dose: Not Given Ondansetron HCl (Zofran) 4 mg IVPUSH Q4H PRN PRN Reason: Nausea/Vomiting Last Admin: 03/23/17 22:13 Dose: 4 mg Pantoprazole Sodium (Protonix Iv) 40 mg IVPUSH DAILY [facility] Last Admin: 03/23/17 08:22 Dose: 40 mg Polyethylene Glycol (Miralax) 17 gm PO BID [facility] Last Admin: 03/23/17 08:03 Dose: Not Given Prochlorperazine Maleate (Compazine) 10 mg PO QID PRN PRN Reason: Nausea Discontinued Medications Cyclobenzaprine HCl (Flexeril) 5 mg PO ONETIME ONE Stop: 03/23/17 21:34 Last Admin: 03/23/17 22:13 Dose: 5 mg Dexamethasone (Dexamethasone) 4 mg IVPUSH Q6H [facility] Last Admin: 03/21/17 18:45 Dose: 4 mg Enoxaparin Sodium (Lovenox) Confirm Administered Dose 60 mg .ROUTE .STK-MED ONE Stop: 03/21/17 17:10 Last Admin: 03/21/17 18:01 Dose: Not Given Dextrose/Sodium Chloride (Dextrose 5%-Normal Saline) 1,000 mls @ 150 mls/hr IV ASDIRECTED [facility] Last Admin: 03/20/17 07:30 Dose: 150 mls/hr Potassium Chloride/Dextrose/Sod Cl (D5 Ns With 20 Meq Kcl) 1,000 mls @ 125 mls/ hr IV ASDIRECTED [facility] Last Admin: 03/23/17 05:05 Dose: 125 mls/hr Potassium Chloride/Dextrose/Sod Cl (D5 Ns With 20 Meq Kcl) Confirm Administered Dose 1,000 mls @ as directed .ROUTE .STK-MED ONE Stop: 03/20/17 15:14 Last Admin: 03/20/17 15:52 Dose: Not Given Multivitamins/Minerals 10 ml/Thiamine HCl 100 mg/ Folic Acid 1 mg/ Magnesium Sulfate 3 gm/ Dextrose/Water 1,017.2 mls @ 150 mls/hr IV ASDIRECTED [facility] Multivitamins/Minerals 10 ml/Thiamine HCl 100 mg/ Folic Acid 1 mg/ Magnesium Sulfate 3 gm/ Dextrose/Water 1,017.2 mls @ 150 mls/hr IV DAILY@1200 [facility] Loperamide HCl (Imodium) 2 mg PO Q2HR PRN PRN Reason: Diarrhea Non-Formulary Medication (Enoxaparin [Lovenox]) 60 mg SQ BID [facility] Last Admin: 03/20/17 17:56 Dose: 60 mg Ondansetron HCl (Zofran) 4 mg IVPUSH Q4H [facility] Last Admin: 03/21/17 18:36 Dose: 4 mg Pantoprazole Sodium (Protonix Iv) 40 mg IVPUSH ONETIME ONE Stop: 03/22/17 06:09 Last Admin: 03/22/17 06:27 Dose: 40 mg Zolpidem Tartrate (Ambien) 10 mg PO ONETIME ONE Stop: 03/19/17 22:23 Last Admin: 03/19/17 22:34 Dose: 10 mg - Exam General: alert, oriented, cooperative, no acute distress HEENT: Pupils equal, Pupils reactive, EOMI Neck: supple Lungs: Clear to auscultation, Normal respiratory effort Cardiovascular: Regular Rate, Regular Rhythm Abdomen: bowel sounds present, distension Extremities: no edema Skin: warm, dry, intact Neurological: no new focal deficit - Problem List & Annotations (1) Nausea & vomiting SNOMED Code(s): 11282424 Code(s): R11.2 - NAUSEA WITH VOMITING, UNSPECIFIED Status: Acute Priority : High Current Visit: Yes Qualifiers: Vomiting type: unspecified Vomiting Intractability: intractable Qualified Code(s): R11.2 - Nausea with vomiting, unspecified (2) Pancreatic adenocarcinoma SNOMED Code(s): 208032745, 889901791 Code(s): C25.9 - MALIGNANT NEOPLASM OF PANCREAS, UNSPECIFIED Status: Chronic Priority: High Current Visit: Yes (3) Decreased appetite SNOMED Code(s): 11808557 Code(s): R63.0 - ANOREXIA Status: Acute Priority: High Current Visit: Yes (4) Weight loss SNOMED Code(s): 463418167, 269868676 Code(s): R63.4 - ABNORMAL WEIGHT LOSS Status: Acute Priority: High Current Visit: Yes (5) Chemotherapy induced nausea and vomiting SNOMED Code(s): 327660842 Code(s): R11.2 - NAUSEA WITH VOMITING, UNSPECIFIED; T45.1X5A - ADVERSE EFFECT OF ANTINEOPLASTIC AND IMMUNOSUP DRUGS, INIT Status: Acute Priority: High Current Visit: Yes (6) Pulmonary embolism on left SNOMED Code(s): 15268200, 85768758 Code(s): I26.99 - OTHER PULMONARY EMBOLISM WITHOUT ACUTE COR PULMONALE Status: Acute Priority: High Current Visit: Yes (7) Chemotherapy adverse reaction SNOMED Code(s): 297528378 Code(s): T45.1X5A - ADVERSE EFFECT OF ANTINEOPLASTIC AND IMMUNOSUP DRUGS, INIT Status: Acute Priority: High Current Visit: Yes Qualifiers: Encounter type: subsequent encounter Qualified Code(s): T45.1X5D - Adverse effect of antineoplastic and immunosuppressive drugs, subsequent encounter (8) Abdominal pain SNOMED Code(s): 60357530 Code(s): R10.9 - UNSPECIFIED ABDOMINAL PAIN Status: Acute Priority: High Current Visit: Yes Qualifiers: Abdominal location: lower abdomen, unspecified Qualified Code(s): R10.30 - Lower abdominal pain, unspecified (9) Abdominal distension SNOMED Code(s): 57133786 Code(s): R14.0 - ABDOMINAL DISTENSION (GASEOUS) Status: Acute Priority: High Current Visit: Yes (10) Metastatic adenocarcinoma SNOMED Code(s): 400783315, 346094716 Code(s): C79.9 - SECONDARY MALIGNANT NEOPLASM OF UNSPECIFIED SITE Status: Acute Priority: High Current Visit: Yes (11) Cachexia SNOMED Code(s): 364124998 Code(s): R64 - CACHEXIA Status: Acute Current Visit: Yes - Problem List Review Problem List Initiated/Reviewed/Updated: Yes - My Orders Last 24 Hours: My Active Orders 03/23/17 12:00 Fat Emulsion [Intralipid 20%] 250 ml IV DAILY 03/23/17 12:15 Dextrose 5% in Water 1,000 ml IV ASDIRECTED 03/24/17 12:00 MVI, Adult with Vitamin K [Infuvite Adult] 10 ml Thiamine [Vitamin B-1] 100 mg Folic Acid 1 mg Magnesium Sulfate [Magnesium Sulfate 50%] 3 gm Dextrose 5% in Water 1,000 ml IV DAILY@1200 - Assessment Assessment:: Bowel obstruction with poor differentiated Pancreatic adenocarcinoma - Plan Plan:: Discussed plan of care. Patient will be continued on current meds and management as well as fluid hydration. Discussed scheduling fluid hydration outpatient for standing orders. Negative Upper ext U/S. Signed out to Dr. Mackay for this weekend. 03/21/17: Pt has bowel obstruction.He has been kept NPO, IV hydration and NG decompression and draining fecal matter with bile. He has been afebrile and stable vitals. He has had 2 episodes of bowel obstruction in past 10 days, and he claims he has had 1 episode at [facility] and after the obstruction cleared at [place] they had CT abdomen done and reassured patient that he was fine. But he has had 3 episodes of Bowel obstruction in past one month, which does not appear to be related to biochemical abnormalities in his labs. He does not have any mechanical obstruction either. Hence I did repeat his amylase and lipase to make sure he does not have subacute pancreatic causing this, and they are normal. Will continue conservative management for bowel obstruction for now. the obstruction should resolve in next 24 hrs. Will repeat BMP and AXR upright in am. 03/22/17: Kindly see the [place] too. Pt's lovenox and DEXAmethose has been stopped due to his NG secretion turning coffee ground. Not copious drainage, about 300cc over night. He has been started on IV protonix 40mg daily. His CBC and CMP are stable today. His hemoglobin was 13.1 today. Pt has had some nausea and abdominal discomfort, controlled on present regime. It ayoub been more than 24 hrs since obstruction, He has been passing flatus, will give another 24 hrs of conservative management and see if obstruction resolves. Will followup in AM. He might need surgical consultation. Also my concern is if he continue to have recurrent bowel obstruction, what will be his plan for nutrition post chemotherapy. As been planned for chemotherapy tomorrow. 03/23/17 Patient admitted for Bowel obstruction. We will f/u xrays. His Bowel sounds are hyperactive and he has passed some gas but his abdomen continues to be quite tender and distended. We will continue NPO at this time but due to his cachexia and weight loss we will start a short term parenteral therapy. Continue to hold lovenox and dexamethasone at this time. Continue Protonix. We will repeat labs a needed. Will discuss plan of care with Oncology. 03/24/17 Patient stable. Denied any passing of BM or gas this AM but did pass some gas yesterday. Abd x-ray did not show too much change but likely slight improvement. Patient denies any pain or discomfort. Patient continues to have NG tube with what appears 1600mL total over 24hrs. We will monitor occult blood in NG to assess restarting Lovenox. Patient will be continued on Zyprexa orally and we will clamp for oral medications. Patient does have a headache today but has improved. It is now on the right side rather than the left.
[2017-03-24] MEDS: ENOXAPARIN 60 MG SQ SCH (07:52)
[2017-03-24] MEDS: Polyethylene Glycol 3350 Powder 17 GM Packet PO SCH ×3 (07:52→21:14)
[2017-03-24] MEDS ORDERED: DULoxetine 60 MG Cap ONE (07:57)
[2017-03-24] MEDS: Pantoprazole 40 MG Vial IVPUSH SCH (08:02)
[2017-03-24] MEDS: OLANZapine 5 MG Tab PO SCH (08:02)
[2017-03-24] MEDS: Fat Emulsion 250 ML IV SCH (08:16)
[2017-03-24] MEDS ORDERED: Ketorolac 30 MG/ML SDV ONE (08:22)
[2017-03-24] MEDS: Ketorolac 60 MG/2 ML SDV IVPUSH SCH ×3 (10:03→21:15)
[2017-03-24] MEDS ORDERED: MVI, Adult with Vitamin K 10 ML, Thiamine 100 MG, Folic Acid 1 MG, Magnesium Sulfate 3 ... IV SCH ×5 (12:00)
[2017-03-24] MEDS: MVI, Adult with Vitamin K 10 ML, Thiamine 100 MG, Folic Acid 1 MG, Magnesium Sulfate 3 ... IV SCH ×5 (14:56)
[2017-03-24] MEDS: Ondansetron 4 MG/2 ML SDV IVPUSH PRN (14:57)
[2017-03-25] MEDS: LORazepam 2 MG/ML MDV IVPUSH PRN (02:39)
[2017-03-25] MEDS: Ketorolac 60 MG/2 ML SDV IVPUSH SCH ×4 (03:59→20:09)
[2017-03-25] MEDS: Polyethylene Glycol 3350 Powder 17 GM Packet PO SCH ×2 (08:07→20:15)
[2017-03-25] MEDS ORDERED: DULoxetine 60 MG Cap ONE (08:14)
[2017-03-25] MEDS: Pantoprazole 40 MG Vial IVPUSH SCH (08:20)
[2017-03-25] MEDS: OLANZapine 5 MG Tab PO SCH (08:20)
[2017-03-25] MEDS: Fat Emulsion 250 ML IV SCH (08:24)
--- NOTE | 2017-03-25 09:51 | PCM.PN ---
<Isai Munroe - Last Filed: 03/27/17 11:22> - Patient Data Vitals - most recent: Last Vital Signs Temp 97.7 F 03/26/17 20:30 Pulse 81 03/26/17 20:30 Resp 16 03/26/17 20:30 BP 127/92 H 03/26/17 20:30 Pulse Ox 95 03/26/17 20:30 I&O - last 24 hours: Intake & Output 03/26/17 03/27/17 03/27/17 22:59 06:59 14:59 Intake Total 1370 100 Output Total 400 2225 700 Balance 970 2222 -600 Lab Results last 24 hrs: Laboratory Results - last 24 hr 03/27/17 03/27/17 03/27/17 Range/Units 09:10 09:10 09:10 WBC 6.3 (4.0-11.0) K/uL RBC 4.92 (4.50-6.50) M/uL Hgb 15.0 (13.0-18.0) g/dL Hct 44.1 (40.0-54.0) % MCV 90 (76-96) fL MCH 30.5 (27.0-32.0) pg MCHC 34.0 (31.0-35.0) g/dL RDW 14.5 (11.0-16.0) % Plt Count 119 L D (150-400) K/uL MPV 10.3 H (6.0-10.0) fL Neut % (Auto) 72.0 H (45.0-70.0) % Lymph % (Auto) 14.0 L (20.0-40.0) % Garland % (Auto) 11.0 H (3.0-10.0) % Eos % (Auto) 2.4 (1.0-5.0) % Baso % (Auto) 0.6 H (0.0-0.5) % Neut # (Auto) 4.56 (2.00-7.50) K/uL Lymph # (Auto) 0.89 L (1.50-4.00) K/uL Garland # (Auto) 0.70 (0.20-0.80) K/uL Eos # (Auto) 0.15 (0.04-0.40) K/uL Baso # (Auto) 0.04 (0.02-0.10) K/uL Sodium 138 (136-145) mmol/L Potassium 4.2 (3.5-5.1) mmol/L Chloride 100 (98-107) mmol/L Carbon Dioxide 31.5 (21.0-32.0) mmol/L Anion Gap 10.7 (5.0-15.0) mmol/L BUN 5 L (8-26) mg/dL Creatinine 1.11 (0.70-1.30) mg/dL Est Cr Clr Drug Dosing 62.22 mL/min Estimated GFR (MDRD) > 60 (>60) MLS/MIN BUN/Creatinine Ratio 4.5 L (6-25) Glucose 127 H (74-100) mg/dL Calcium 9.0 (8.5-10.1) mg/dL Phosphorus (2.5-4.9) mg/dL Magnesium 2.4 D (1.8-2.4) mg/dL Total Bilirubin 2.5 H D (0.0-1.0) mg/dL AST 38 H (15-37) U/L ALT 92 H (12-78) U/L Alkaline Phosphatase 206 H (46-116) U/L Total Protein 6.8 (6.4-8.2) g/dL Albumin 3.4 (3.4-5.0) g/dL Globulin 3.4 (2.2-4.2) g/dL Albumin/Globulin Ratio 1.0 (0.8-2.0) Triglycerides 86 (30-150) mg/dL Cholesterol 209 H (120-200) mg/dL LDL Cholesterol, Calc 145 H (0-130) mg/dL HDL Cholesterol 47 (40-60) mg/dL Cholesterol/HDL Ratio 4.4 (0.0-5.0) 03/27/17 Range/Units 09:10 WBC (4.0-11.0) K/uL RBC (4.50-6.50) M/uL Hgb (13.0-18.0) g/dL Hct (40.0-54.0) % MCV (76-96) fL MCH (27.0-32.0) pg MCHC (31.0-35.0) g/dL RDW (11.0-16.0) % Plt Count (150-400) K/uL MPV (6.0-10.0) fL Neut % (Auto) (45.0-70.0) % Lymph % (Auto) (20.0-40.0) % Garland % (Auto) (3.0-10.0) % Eos % (Auto) (1.0-5.0) % Baso % (Auto) (0.0-0.5) % Neut # (Auto) (2.00-7.50) K/uL Lymph # (Auto) (1.50-4.00) K/uL Garland # (Auto) (0.20-0.80) K/uL Eos # (Auto) (0.04-0.40) K/uL Baso # (Auto) (0.02-0.10) K/uL Sodium (136-145) mmol/L Potassium (3.5-5.1) mmol/L Chloride (98-107) mmol/L Carbon Dioxide (21.0-32.0) mmol/L Anion Gap (5.0-15.0) mmol/L BUN (8-26) mg/dL Creatinine (0.70-1.30) mg/dL Est Cr Clr Drug Dosing mL/min Estimated GFR (MDRD) (>60) MLS/MIN BUN/Creatinine Ratio (6-25) Glucose (74-100) mg/dL Calcium (8.5-10.1) mg/dL Phosphorus 4.4 (2.5-4.9) mg/dL Magnesium (1.8-2.4) mg/dL Total Bilirubin (0.0-1.0) mg/dL AST (15-37) U/L ALT (12-78) U/L Alkaline Phosphatase (46-116) U/L Total Protein (6.4-8.2) g/dL Albumin (3.4-5.0) g/dL Globulin (2.2-4.2) g/dL Albumin/Globulin Ratio (0.8-2.0) Triglycerides (30-150) mg/dL Cholesterol (120-200) mg/dL LDL Cholesterol, Calc (0-130) mg/dL HDL Cholesterol (40-60) mg/dL Cholesterol/HDL Ratio (0.0-5.0) Med Orders - Current: Current Medications Duloxetine HCl (Cymbalta) 60 mg PO DAILY [facility] Last Admin: 03/27/17 09:02 Dose: 60 mg Hydromorphone HCl (Dilaudid) 1 mg IVPUSH Q4H PRN PRN Reason: Abdominal Pain Last Admin: 03/23/17 14:26 Dose: 1 mg Fat Emulsion Intravenous (Intralipid 20%) 250 mls @ 62.5 mls/hr IV DAILY [facility] Last Admin: 03/27/17 09:59 Dose: 62.5 mls/hr Dextrose/Water (Dextrose 5% In Water) 1,000 mls @ 125 mls/hr IV ASDIRECTED [facility] Last Admin: 03/27/17 03:30 Dose: 125 mls/hr Multivitamins/Minerals 10 ml/Thiamine HCl 100 mg/ Folic Acid 1 mg/ Magnesium Sulfate 3 gm/ Dextrose/Water 1,017.2 mls @ 150 mls/hr IV DAILY@1200 [facility] Last Admin: 03/26/17 11:54 Dose: 150 mls/hr Ketorolac Tromethamine (Toradol) 30 mg IVPUSH Q6H [facility] Stop: 03/29/17 08:01 Last Admin: 03/27/17 09:15 Dose: Not Given Lorazepam (Ativan) 0.5 mg IVPUSH BEDTIME PRN PRN Reason: Sleep Last Admin: 03/25/17 02:39 Dose: 0.5 mg Non-Formulary Medication (Enoxaparin [Lovenox]) 60 mg SQ BID@0600,1800 [facility] Last Admin: 03/26/17 17:32 Dose: Not Given Nystatin (Mycostatin) 5 ml PO QID PRN PRN Reason: Other Olanzapine (Zyprexa) 5 mg PO DAILY [facility] Last Admin: 03/27/17 09:03 Dose: 5 mg Ondansetron HCl (Zofran) 4 mg IVPUSH Q4H PRN PRN Reason: Nausea/Vomiting Last Admin: 03/25/17 14:41 Dose: 4 mg Pantoprazole Sodium (Protonix Iv) 40 mg IVPUSH DAILY [facility] Last Admin: 03/27/17 09:14 Dose: 40 mg Polyethylene Glycol (Miralax) 17 gm PO BID [facility] Last Admin: 03/27/17 09:15 Dose: Not Given Prochlorperazine Maleate (Compazine) 10 mg PO QID PRN PRN Reason: Nausea Zolpidem Tartrate (Ambien) 10 mg PO BEDTIME PRN PRN Reason: SLEEP Last Admin: 03/26/17 22:27 Dose: 10 mg Discontinued Medications Cyclobenzaprine HCl (Flexeril) 5 mg PO ONETIME ONE Stop: 03/23/17 21:34 Last Admin: 03/23/17 22:13 Dose: 5 mg Dexamethasone (Dexamethasone) 4 mg IVPUSH Q6H [facility] Last Admin: 03/21/17 18:45 Dose: 4 mg Duloxetine HCl (Cymbalta) Confirm Administered Dose 60 mg .ROUTE .STK-MED ONE Stop: 03/24/17 07:58 Last Admin: 03/24/17 08:03 Dose: Not Given Duloxetine HCl (Cymbalta) Confirm Administered Dose 60 mg .ROUTE .STK-MED ONE Stop: 03/25/17 08:15 Last Admin: 03/25/17 08:45 Dose: Not Given Enoxaparin Sodium (Lovenox) Confirm Administered Dose 60 mg .ROUTE .STK-MED ONE Stop: 03/21/17 17:10 Last Admin: 03/21/17 18:01 Dose: Not Given Dextrose/Sodium Chloride (Dextrose 5%-Normal Saline) 1,000 mls @ 150 mls/hr IV ASDIRECTED [facility] Last Admin: 03/20/17 07:30 Dose: 150 mls/hr Potassium Chloride/Dextrose/Sod Cl (D5 Ns With 20 Meq Kcl) 1,000 mls @ 125 mls/ hr IV [facility]IRECTELY[facility] Last Admin: 03/23/17 05:05 Dose: 125 mls/hr Potassium Chloride/Dextrose/Sod Cl (D5 Ns With 20 Meq Kcl) Confirm Administered Dose 1,000 mls @ as directed .ROUTE .STK-MED ONE Stop: 03/20/17 15:14 Last Admin: 03/20/17 15:52 Dose: Not Given Multivitamins/Minerals 10 ml/Thiamine HCl 100 mg/ Folic Acid 1 mg/ Magnesium Sulfate 3 gm/ Dextrose/Water 1,017.2 mls @ 150 mls/hr IV ASDIRECTELY-[facility] Multivitamins/Minerals 10 ml/Thiamine HCl 100 mg/ Folic Acid 1 mg/ Magnesium Sulfate 3 gm/ Dextrose/Water 1,017.2 mls @ 150 mls/hr IV DAILY@1200 [facility] Ketorolac Tromethamine (Toradol) Confirm Administered Dose 30 mg .ROUTE .STK- MED ONE Stop: 03/24/17 08:23 Last Admin: 03/24/17 08:45 Dose: 30 mg Loperamide HCl (Imodium) 2 mg PO Q2HR PRN PRN Reason: Diarrhea (Duloxetine Hcl [ Duloxetine Hcl] 30 Mg Cap 60 mg PO DAILY [facility] Last Admin: 03/25/17 08:20 Dose: 60 mg Non-Formulary Medication (Enoxaparin [Lovenox]) 60 mg SQ BID [facility] Last Admin: 03/20/17 17:56 Dose: 60 mg Zolpidem 10mg Tablet 1 each PO BEDTIME PRN PRN Reason: SLEEP Ondansetron HCl (Zofran) 4 mg IVPUSH Q4H [facility] Last Admin: 03/21/17 18:36 Dose: 4 mg Pantoprazole Sodium (Protonix Iv) 40 mg IVPUSH ONETIME ONE Stop: 03/22/17 06:09 Last Admin: 03/22/17 06:27 Dose: 40 mg Zolpidem Tartrate (Ambien) 10 mg PO ONETIME ONE Stop: 03/19/17 22:23 Last Admin: 03/19/17 22:34 Dose: 10 mg - Problem List & Annotations (1) Bowel obstruction SNOMED Code(s): 53599052 Code(s): K56.60 - UNSPECIFIED INTESTINAL OBSTRUCTION Status: Acute Priority: High Qualifiers: Intestinal obstruction type: other intestinal obstruction Qualified Code(s) : K56.69 - Other intestinal obstruction - My Orders Last 24 Hours: My Active Orders 03/27/17 08:49 Chest 1V Frontal [CR] Routine 03/27/17 11:16 Total Parental Nutrition [COMM] Routine <Quo,Terrance - Last Filed: 03/30/17 11:31> - General Info Date of Service: 03/25/17 Subjective Update: Patient denies any headache today. He has improved with Toradol use. He states he has had some gas yesterday but nothing today. He went for a March 24 outing and noted that his abdomen became more distended until he returned and restarted on his NG tube suction. He states his abdomen is not painful, and he has no other complaints today. His nausea and vomiting has improved and it is tolerable per the patient. Functional Status: Reports: pain controlled - Review of Systems General: Reports: No Symptoms HEENT: Reports: no symptoms Pulmonary: Reports: no symptoms Cardiovascular: Reports: No Symptoms Gastrointestinal: Reports: Decreased appetite, Nausea Genitourinary: Reports: no symptoms Musculoskeletal: Reports: no symptoms Skin: Reports: no symptoms Neurological: Reports: No Symptoms Psychiatric: Reports: no symptoms - Patient Data Vitals - most recent: Last Vital Signs Temp 36.1 C 03/24/17 21:13 Pulse 82 03/24/17 21:13 Resp 16 03/24/17 21:13 BP 119/88 03/24/17 21:13 Pulse Ox 96 03/24/17 21:13 Weight - most recent: 59.33 kg I&O - last 24 hours: Intake & Output 03/24/17 03/25/17 03/25/17 22:59 06:59 14:59 Intake Total 1060 1690 Output Total 2550 700 300 Balance -1490 -700 1390 Med Orders - Current: Current Medications Duloxetine HCl (Cymbalta) 60 mg PO DAILY [facility] Hydromorphone HCl (Dilaudid) 1 mg IVPUSH Q4H PRN PRN Reason: Abdominal Pain Last Admin: 03/23/17 14:26 Dose: 1 mg Fat Emulsion Intravenous (Intralipid 20%) 250 mls @ 62.5 mls/hr IV DAILY [facility] Last Admin: 03/25/17 08:24 Dose: 62.5 mls/hr Dextrose/Water (Dextrose 5% In Water) 1,000 mls @ 125 mls/hr IV ASDIRECTED [facility] Last Admin: 03/24/17 21:40 Dose: 125 mls/hr Multivitamins/Minerals 10 ml/Thiamine HCl 100 mg/ Folic Acid 1 mg/ Magnesium Sulfate 3 gm/ Dextrose/Water 1,017.2 mls @ 150 mls/hr IV DAILY@1200 [facility] Last Admin: 03/24/17 14:56 Dose: 150 mls/hr Ketorolac Tromethamine (Toradol) 30 mg IVPUSH Q6H [facility] Stop: 03/29/17 08:01 Last Admin: 03/25/17 09:07 Dose: Not Given Lorazepam (Ativan) 0.5 mg IVPUSH BEDTIME PRN PRN Reason: Sleep Last Admin: 03/25/17 02:39 Dose: 0.5 mg Non-Formulary Medication (Enoxaparin [Lovenox]) 60 mg SQ BID@0600,1800 [facility] Last Admin: 03/24/17 07:52 Dose: Not Given Non-Formulary Medication (Total Parenteral Nutrition, Central) 250 ml IV BID [facility] PRN Reason: Protocol Nystatin (Mycostatin) 5 ml PO QID PRN PRN Reason: Other Olanzapine (Zyprexa) 5 mg PO DAILY [facility] Last Admin: 03/25/17 08:20 Dose: 5 mg Ondansetron HCl (Zofran) 4 mg IVPUSH Q4H PRN PRN Reason: Nausea/Vomiting Last Admin: 03/24/17 14:57 Dose: 4 mg Pantoprazole Sodium (Protonix Iv) 40 mg IVPUSH DAILY [facility] Last Admin: 03/25/17 08:20 Dose: 40 mg Polyethylene Glycol (Miralax) 17 gm PO BID [facility] Last Admin: 03/25/17 08:07 Dose: Not Given Prochlorperazine Maleate (Compazine) 10 mg PO QID PRN PRN Reason: Nausea Zolpidem Tartrate (Ambien) 10 mg PO BEDTIME PRN PRN Reason: SLEEP Discontinued Medications Cyclobenzaprine HCl (Flexeril) 5 mg PO ONETIME ONE Stop: 03/23/17 21:34 Last Admin: 03/23/17 22:13 Dose: 5 mg Dexamethasone (Dexamethasone) 4 mg IVPUSH Q6H [facility] Last Admin: 03/21/17 18:45 Dose: 4 mg Duloxetine HCl (Cymbalta) Confirm Administered Dose 60 mg .ROUTE .STK-MED ONE Stop: 03/24/17 07:58 Last Admin: 03/24/17 08:03 Dose: Not Given Duloxetine HCl (Cymbalta) Confirm Administered Dose 60 mg .ROUTE .STK-MED ONE Stop: 03/25/17 08:15 Last Admin: 03/25/17 08:45 Dose: Not Given Enoxaparin Sodium (Lovenox) Confirm Administered Dose 60 mg .ROUTE .STK-MED ONE Stop: 03/21/17 17:10 Last Admin: 03/21/17 18:01 Dose: Not Given Dextrose/Sodium Chloride (Dextrose 5%-Normal Saline) 1,000 mls @ 150 mls/hr IV ASDIRECTED [facility] Last Admin: 03/20/17 07:30 Dose: 150 mls/hr Potassium Chloride/Dextrose/Sod Cl (D5 Ns With 20 Meq Kcl) 1,000 mls @ 125 mls/ hr IV ASDIRECTED [facility] Last Admin: 03/23/17 05:05 Dose: 125 mls/hr Potassium Chloride/Dextrose/Sod Cl (D5 Ns With 20 Meq Kcl) Confirm Administered Dose 1,000 mls @ as directed .ROUTE .STK-MED ONE Stop: 03/20/17 15:14 Last Admin: 03/20/17 15:52 Dose: Not Given Multivitamins/Minerals 10 ml/Thiamine HCl 100 mg/ Folic Acid 1 mg/ Magnesium Sulfate 3 gm/ Dextrose/Water 1,017.2 mls @ 150 mls/hr IV ASDIRECTED [facility] Multivitamins/Minerals 10 ml/Thiamine HCl 100 mg/ Folic Acid 1 mg/ Magnesium Sulfate 3 gm/ Dextrose/Water 1,017.2 mls @ 150 mls/hr IV DAILY@1200 [facility] Ketorolac Tromethamine (Toradol) Confirm Administered Dose 30 mg .ROUTE .STK- MED ONE Stop: 03/24/17 08:23 Last Admin: 03/24/17 08:45 Dose: 30 mg Loperamide HCl (Imodium) 2 mg PO Q2HR PRN PRN Reason: Diarrhea (Duloxetine Hcl [ Duloxetine Hcl] 30 Mg Cap 60 mg PO DAILY [facility] Last Admin: 03/25/17 08:20 Dose: 60 mg Non-Formulary Medication (Enoxaparin [Lovenox]) 60 mg SQ BID [facility] Last Admin: 03/20/17 17:56 Dose: 60 mg Zolpidem 10mg Tablet 1 each PO BEDTIME PRN PRN Reason: SLEEP Ondansetron HCl (Zofran) 4 mg IVPUSH Q4H [facility] Last Admin: 03/21/17 18:36 Dose: 4 mg Pantoprazole Sodium (Protonix Iv) 40 mg IVPUSH ONETIME ONE Stop: 03/22/17 06:09 Last Admin: 03/22/17 06:27 Dose: 40 mg Zolpidem Tartrate (Ambien) 10 mg PO ONETIME ONE Stop: 03/19/17 22:23 Last Admin: 03/19/17 22:34 Dose: 10 mg - Exam General: alert, oriented, cooperative HEENT: Pupils equal, Pupils reactive, EOMI Neck: supple Lungs: Clear to auscultation, Normal respiratory effort Cardiovascular: Regular Rate, Regular Rhythm Abdomen: abnormal bowel sounds (hyperactive left side, decreased ) - Problem List & Annotations (1) Nausea & vomiting SNOMED Code(s): 19502137 Code(s): R11.2 - NAUSEA WITH VOMITING, UNSPECIFIED Status: Acute Priority : High Qualifiers: Vomiting type: unspecified Vomiting Intractability: intractable Qualified Code(s): R11.2 - Nausea with vomiting, unspecified (2) Pancreatic adenocarcinoma SNOMED Code(s): 547372322, 706663995 Code(s): C25.9 - MALIGNANT NEOPLASM OF PANCREAS, UNSPECIFIED Status: Chronic Priority: High (3) Decreased appetite SNOMED Code(s): 06765808 Code(s): R63.0 - ANOREXIA Status: Acute Priority: High (4) Weight loss SNOMED Code(s): 620447338, 963642206 Code(s): R63.4 - ABNORMAL WEIGHT LOSS Status: Acute Priority: High (5) Chemotherapy induced nausea and vomiting SNOMED Code(s): 611684132 Code(s): R11.2 - NAUSEA WITH VOMITING, UNSPECIFIED; T45.1X5A - ADVERSE EFFECT OF ANTINEOPLASTIC AND IMMUNOSUP DRUGS, INIT Status: Acute Priority: High (6) Pulmonary embolism on left SNOMED Code(s): 25959187, 13542582 Code(s): I26.99 - OTHER PULMONARY EMBOLISM WITHOUT ACUTE COR PULMONALE Status: Acute Priority: High (7) Chemotherapy adverse reaction SNOMED Code(s): 343851440 Code(s): T45.1X5A - ADVERSE EFFECT OF ANTINEOPLASTIC AND IMMUNOSUP DRUGS, INIT Status: Acute Priority: High Qualifiers: Encounter type: subsequent encounter Qualified Code(s): T45.1X5D - Adverse effect of antineoplastic and immunosuppressive drugs, subsequent encounter (8) Abdominal pain SNOMED Code(s): 47707228 Code(s): R10.9 - UNSPECIFIED ABDOMINAL PAIN Status: Acute Priority: High Qualifiers: Abdominal location: lower abdomen, unspecified Qualified Code(s): R10.30 - Lower abdominal pain, unspecified (9) Abdominal distension SNOMED Code(s): 54584180 Code(s): R14.0 - ABDOMINAL DISTENSION (GASEOUS) Status: Acute Priority: High (10) Metastatic adenocarcinoma SNOMED Code(s): 718020376, 034883096 Code(s): C79.9 - SECONDARY MALIGNANT NEOPLASM OF UNSPECIFIED SITE Status: Acute Priority: High (11) Cachexia SNOMED Code(s): 933750773 Code(s): R64 - CACHEXIA Status: Acute - Problem List Review Problem List Initiated/Reviewed/Updated: Yes - My Orders Last 24 Hours: My Active Orders 03/24/17 12:00 MVI, Adult with Vitamin K [Infuvite Adult] 10 ml Thiamine [Vitamin B-1] 100 mg Folic Acid 1 mg Magnesium Sulfate [Magnesium Sulfate 50%] 3 gm Dextrose 5% in Water 1,000 ml IV DAILY@1200 03/25/17 09:03 Zolpidem [Ambien] 10 mg PO BEDTIME PRN 03/25/17 09:38 Consult to Solar System Installer [CONS] Routine 03/25/17 20:00 Central TPN [Total Parenteral Nutrition, Central] 250 ml IV BID 03/26/17 08:00 DULoxetine [Cymbalta] 60 mg PO DAILY - Assessment Assessment:: Bowel obstruction with poor differentiated Pancreatic adenocarcinoma - Plan Plan:: Discussed plan of care. Patient will be continued on current meds and management as well as fluid hydration. Discussed scheduling fluid hydration outpatient for standing orders. Negative Upper ext U/S. Signed out to Dr. Mackay for this weekend. 03/21/17: Pt has bowel obstruction.He has been kept NPO, IV hydration and NG decompression and draining fecal matter with bile. He has been afebrile and stable vitals. He has had 2 episodes of bowel obstruction in past 10 days, and he claims he has had 1 episode at [facility] and after the obstruction cleared at [place] they had CT abdomen done and reassured patient that he was fine. But he has had 3 episodes of Bowel obstruction in past one month, which does not appear to be related to biochemical abnormalities in his labs. He does not have any mechanical obstruction either. Hence I did repeat his amylase and lipase to make sure he does not have subacute pancreatic causing this, and they are normal. Will continue conservative management for bowel obstruction for now. the obstruction should resolve in next 24 hrs. Will repeat BMP and AXR upright in am. 03/22/17: Kindly see the BEAVER too. Pt's lovenox and DEXAmethose has been stopped due to his NG secretion turning coffee ground. Not copious drainage, about 300cc over night. He has been started on IV protonix 40mg daily. His CBC and CMP are stable today. His hemoglobin was 13.1 today. Pt has had some nausea and abdominal discomfort, controlled on present regime. It ayoub been more than 24 hrs since obstruction, He has been passing flatus, will give another 24 hrs of conservative management and see if obstruction resolves. Will followup in AM. He might need surgical consultation. Also my concern is if he continue to have recurrent bowel obstruction, what will be his plan for nutrition post chemotherapy. As been planned for chemotherapy tomorrow. 03/23/17 Patient admitted for Bowel obstruction. We will f/u xrays. His Bowel sounds are hyperactive and he has passed some gas but his abdomen continues to be quite tender and distended. We will continue NPO at this time but due to his cachexia and weight loss we will start a short term parenteral therapy. Continue to hold lovenox and dexamethasone at this time. Continue Protonix. We will repeat labs a needed. Will discuss plan of care with Oncology. 03/24/17 Patient stable. Denied any passing of BM or gas this AM but did pass some gas yesterday. Abd x-ray did not show too much change but likely slight improvement. Patient denies any pain or discomfort. Patient continues to have NG tube with what appears 1600mL total over 24hrs. We will monitor occult blood in NG to assess restarting Lovenox. Patient will be continued on Zyprexa orally and we will clamp for oral medications. Patient does have a headache today but has improved. It is now on the right side rather than the left. 03/25/16 Patient has improved abdominal distension and passing gas but no BM. We will continue to monitor closely. Keep NG tube clamped at this time for medications.
[2017-03-25] MEDS: MVI, Adult with Vitamin K 10 ML, Thiamine 100 MG, Folic Acid 1 MG, Magnesium Sulfate 3 ... IV SCH ×5 (13:27)
[2017-03-25] MEDS: Ondansetron 4 MG/2 ML SDV IVPUSH PRN (14:41)
[2017-03-25] MEDS ORDERED: Central Total Parenteral Nutrition Bag IV SCH (20:00)
[2017-03-25] MEDS: Dextrose 5% in Water 1,000 ML IV SCH (21:22)
[2017-03-25] MEDS: Zolpidem 5 MG Tab PO PRN (21:56)
[2017-03-26] MEDS: Ketorolac 60 MG/2 ML SDV IVPUSH SCH ×4 (02:21→20:25)
[2017-03-26] MEDS: Dextrose 5% in Water 1,000 ML IV SCH ×2 (05:33→19:30)
[2017-03-26] MEDS: ENOXAPARIN 60 MG SQ SCH ×2 (06:00→17:32)
[2017-03-26] MEDS: Pantoprazole 40 MG Vial IVPUSH SCH (07:39)
[2017-03-26] MEDS: DULoxetine 60 MG Cap PO SCH (07:41)
[2017-03-26] MEDS: OLANZapine 5 MG Tab PO SCH (07:41)
[2017-03-26] MEDS: Polyethylene Glycol 3350 Powder 17 GM Packet PO SCH ×2 (07:51→20:25)
[2017-03-26] MEDS: Fat Emulsion 250 ML IV SCH (08:00)
[2017-03-26] MEDS: MVI, Adult with Vitamin K 10 ML, Thiamine 100 MG, Folic Acid 1 MG, Magnesium Sulfate 3 ... IV SCH ×5 (11:54)
[2017-03-26] MEDS: Zolpidem 5 MG Tab PO PRN (22:27)
[2017-03-27] MEDS: Ketorolac 60 MG/2 ML SDV IVPUSH SCH ×3 (02:00→14:16)
[2017-03-27] MEDS: Dextrose 5% in Water 1,000 ML IV SCH (03:30)
[2017-03-27] MEDS: DULoxetine 60 MG Cap PO SCH (09:02)
[2017-03-27] MEDS: OLANZapine 5 MG Tab PO SCH (09:03)
[2017-03-27] MEDS: Pantoprazole 40 MG Vial IVPUSH SCH (09:14)
[2017-03-27] MEDS: Polyethylene Glycol 3350 Powder 17 GM Packet PO SCH (09:15)
[2017-03-27] MEDS: Fat Emulsion 250 ML IV SCH (09:59)
[2017-03-27] MEDS: HYDROmorphone 2 MG/ML Syringe IVPUSH PRN ×2 (13:12→18:39)
[2017-03-27] MEDS: Ondansetron 4 MG/2 ML SDV IVPUSH PRN (13:15)
[2017-03-27] MEDS: MVI, Adult with Vitamin K 10 ML, Thiamine 100 MG, Folic Acid 1 MG, Magnesium Sulfate 3 ... IV SCH ×5 (14:17)
[2017-03-27 15:07] VITALS: BP 132/97
[2017-03-27] MEDS ORDERED: Peripheral TPN 1 ML IV SCH (15:45)
--- NOTE | 2017-03-27 16:29 | PCM.PN ---
- General Info Date of Service: 03/27/17 Subjective Update: Pt has been started on IV intralipids and 5%D dextrose with MVI at 125cc.hr. Pt claims he feels distended in his abdomen, but better than few days ago. he has not passed any flatus today. He did try 1/2 cup apple juice last evening and the NG was clamped for 3-4 hrs and later aspirated and got about 250cc NG drainage. Has mild abdominal discomfort on and off. No other complaints. Functional Status: Reports: pain controlled, ambulating, urinating. Denies: tolerating diet - Review of Systems General: Reports: Weakness. Denies: Fever, Fatigue, Malaise, Chills HEENT: Denies: headaches, sinus congestion, sore throat Pulmonary: Denies: shortness of breath, pleuritic chest pain, cough, sputum, hemoptysis, wheezing Cardiovascular: Denies: Chest Pain, Lightheadedness Gastrointestinal: Reports: Abdominal pain, Other (NG tube still draining bilious drainage). Denies: Flatus, Hematochezia, Melena, Nausea, Vomiting Genitourinary: Denies: dysuria, frequency Musculoskeletal: Denies: joint pain, joint swelling Skin: Denies: cyanosis, bruising, pruritis, rash - Patient Data Vitals - most recent: Last Vital Signs Temp 97.7 F 03/26/17 20:30 Pulse 101 H 03/27/17 15:05 Resp 20 03/27/17 15:05 BP 132/97 H 03/27/17 15:05 Pulse Ox 96 03/27/17 15:05 Weight - most recent: 56.427 kg I&O - last 24 hours: Intake & Output 03/27/17 03/27/17 03/27/17 06:59 14:59 22:59 Intake Total 100 Output Total 2225 700 Balance -2225 -600 Lab Results last 24 hrs: Laboratory Results - last 24 hr 03/27/17 03/27/17 03/27/17 Range/Units 09:10 09:10 09:10 WBC 6.3 (4.0-11.0) K/uL RBC 4.92 (4.50-6.50) M/uL Hgb 15.0 (13.0-18.0) g/dL Hct 44.1 (40.0-54.0) % MCV 90 (76-96) fL MCH 30.5 (27.0-32.0) pg MCHC 34.0 (31.0-35.0) g/dL RDW 14.5 (11.0-16.0) % Plt Count 119 L D (150-400) K/uL MPV 10.3 H (6.0-10.0) fL Neut % (Auto) 72.0 H (45.0-70.0) % Lymph % (Auto) 14.0 L (20.0-40.0) % [place] % (Auto) 11.0 H (3.0-10.0) % Eos % (Auto) 2.4 (1.0-5.0) % Baso % (Auto) 0.6 H (0.0-0.5) % Neut # (Auto) 4.56 (2.00-7.50) K/uL Lymph # (Auto) 0.89 L (1.50-4.00) K/uL [place] # (Auto) 0.70 (0.20-0.80) K/uL Eos # (Auto) 0.15 (0.04-0.40) K/uL Baso # (Auto) 0.04 (0.02-0.10) K/uL Sodium 138 (136-145) mmol/L Potassium 4.2 (3.5-5.1) mmol/L Chloride 100 (98-107) mmol/L Carbon Dioxide 31.5 (21.0-32.0) mmol/L Anion Gap 10.7 (5.0-15.0) mmol/L BUN 5 L (8-26) mg/dL Creatinine 1.11 (0.70-1.30) mg/dL Est Cr Clr Drug Dosing 62.22 mL/min Estimated GFR (MDRD) > 60 (>60) MLS/MIN BUN/Creatinine Ratio 4.5 L (6-25) Glucose 127 H (74-100) mg/dL Calcium 9.0 (8.5-10.1) mg/dL Phosphorus (2.5-4.9) mg/dL Magnesium 2.4 D (1.8-2.4) mg/dL Total Bilirubin 2.5 H D (0.0-1.0) mg/dL AST 38 H (15-37) U/L ALT 92 H (12-78) U/L Alkaline Phosphatase 206 H (46-116) U/L Total Protein 6.8 (6.4-8.2) g/dL Albumin 3.4 (3.4-5.0) g/dL Globulin 3.4 (2.2-4.2) g/dL Albumin/Globulin Ratio 1.0 (0.8-2.0) Triglycerides 86 (30-150) mg/dL Cholesterol 209 H (120-200) mg/dL LDL Cholesterol, Calc 145 H (0-130) mg/dL HDL Cholesterol 47 (40-60) mg/dL Cholesterol/HDL Ratio 4.4 (0.0-5.0) /04/06 Range/Units 09:10 WBC (4.0-11.0) K/uL RBC (4.50-6.50) M/uL Hgb (13.0-18.0) g/dL Hct (40.0-54.0) % MCV (76-96) fL MCH (27.0-32.0) pg MCHC (31.0-35.0) g/dL RDW (11.0-16.0) % Plt Count (150-400) K/uL MPV (6.0-10.0) fL Neut % (Auto) (45.0-70.0) % Lymph % (Auto) (20.0-40.0) % [place] % (Auto) (3.0-10.0) % Eos % (Auto) (1.0-5.0) % Baso % (Auto) (0.0-0.5) % Neut # (Auto) (2.00-7.50) K/uL Lymph # (Auto) (1.50-4.00) K/uL [place] # (Auto) (0.20-0.80) K/uL Eos # (Auto) (0.04-0.40) K/uL Baso # (Auto) (0.02-0.10) K/uL Sodium (136-145) mmol/L Potassium (3.5-5.1) mmol/L Chloride (98-107) mmol/L Carbon Dioxide (21.0-32.0) mmol/L Anion Gap (5.0-15.0) mmol/L BUN (8-26) mg/dL Creatinine (0.70-1.30) mg/dL Est Cr Clr Drug Dosing mL/min Estimated GFR (MDRD) (>60) MLS/MIN BUN/Creatinine Ratio (6-25) Glucose (74-100) mg/dL Calcium (8.5-10.1) mg/dL Phosphorus 4.4 (2.5-4.9) mg/dL Magnesium (1.8-2.4) mg/dL Total Bilirubin (0.0-1.0) mg/dL AST (15-37) U/L ALT (12-78) U/L Alkaline Phosphatase (46-116) U/L Total Protein (6.4-8.2) g/dL Albumin (3.4-5.0) g/dL Globulin (2.2-4.2) g/dL Albumin/Globulin Ratio (0.8-2.0) Triglycerides (30-150) mg/dL Cholesterol (120-200) mg/dL LDL Cholesterol, Calc (0-130) mg/dL HDL Cholesterol (40-60) mg/dL Cholesterol/HDL Ratio (0.0-5.0) Med Orders - Current: Current Medications Duloxetine HCl (Cymbalta) 60 mg PO DAILY [facility] Last Admin: 03/27/17 09:02 Dose: 60 mg Hydromorphone HCl (Dilaudid) 1 mg IVPUSH Q4H PRN PRN Reason: Abdominal Pain Last Admin: 03/27/17 13:12 Dose: 1 mg Fat Emulsion Intravenous (Intralipid 20%) 250 mls @ 62.5 mls/hr IV DAILY [facility] Last Admin: 03/27/17 09:59 Dose: 62.5 mls/hr Multivitamins/Minerals 10 ml/Thiamine HCl 100 mg/ Folic Acid 1 mg/ Magnesium Sulfate 3 gm/ Dextrose/Water 1,017.2 mls @ 150 mls/hr IV DAILY@1200 [facility] Stop: 03/27/17 20:00 Last Admin: 03/27/17 14:17 Dose: 150 mls/hr Multivitamins/Minerals 10 ml/ (Dextrose/Water) 510 mls @ 85 mls/hr IV ASDIRECTED [facility] Dextrose/Water (Dextrose 10% In Water) 500 mls @ 85 mls/hr IV DAILY [facility] Stop: 03/30/17 18:00 Amino Acids 15% 600 mls @ 75 mls/hr IVPUSH DAILY [facility] Stop: 03/30/17 20:31 Ketorolac Tromethamine (Toradol) 30 mg IVPUSH Q6H [facility] Stop: 03/29/17 08:01 Last Admin: 03/27/17 14:16 Dose: Not Given Lorazepam (Ativan) 0.5 mg IVPUSH BEDTIME PRN PRN Reason: Sleep Last Admin: 03/25/17 02:39 Dose: 0.5 mg Non-Formulary Medication (Enoxaparin [Lovenox]) 60 mg SQ BID@0600,1800 [facility] Last Admin: 03/26/17 17:32 Dose: Not Given Nystatin (Mycostatin) 5 ml PO QID PRN PRN Reason: Other Olanzapine (Zyprexa) 5 mg PO DAILY [facility] Last Admin: 03/27/17 09:03 Dose: 5 mg Ondansetron HCl (Zofran) 4 mg IVPUSH Q4H PRN PRN Reason: Nausea/Vomiting Last Admin: 03/27/17 13:15 Dose: 4 mg Pantoprazole Sodium (Protonix Iv) 40 mg IVPUSH DAILY [facility] Last Admin: 03/27/17 09:14 Dose: 40 mg Polyethylene Glycol (Miralax) 17 gm PO BID [facility] Last Admin: 03/27/17 09:15 Dose: Not Given Prochlorperazine Maleate (Compazine) 10 mg PO QID PRN PRN Reason: Nausea Zolpidem Tartrate (Ambien) 10 mg PO BEDTIME PRN PRN Reason: SLEEP Last Admin: 03/26/17 22:27 Dose: 10 mg Discontinued Medications Cyclobenzaprine HCl (Flexeril) 5 mg PO ONETIME ONE Stop: 03/23/17 21:34 Last Admin: 03/23/17 22:13 Dose: 5 mg Dexamethasone (Dexamethasone) 4 mg IVPUSH Q6H [facility] Last Admin: 03/21/17 18:45 Dose: 4 mg Duloxetine HCl (Cymbalta) Confirm Administered Dose 60 mg .ROUTE .STK-MED ONE Stop: 03/24/17 07:58 Last Admin: 03/24/17 08:03 Dose: Not Given Duloxetine HCl (Cymbalta) Confirm Administered Dose 60 mg .ROUTE .[facility] ONE Stop: 03/25/17 08:15 Last Admin: 03/25/17 08:45 Dose: Not Given Enoxaparin Sodium (Lovenox) Confirm Administered Dose 60 mg .ROUTE .[facility] ONE Stop: 03/21/17 17:10 Last Admin: 03/21/17 18:01 Dose: Not Given Dextrose/Sodium Chloride (Dextrose 5%-Normal Saline) 1,000 mls @ 150 mls/hr IV ASDIRECTED [facility] Last Admin: 03/20/17 07:30 Dose: 150 mls/hr Potassium Chloride/Dextrose/Sod Cl (D5 Ns With 20 Meq Kcl) 1,000 mls @ 125 mls/ hr IV ASDIRECTED [facility] Last Admin: 03/23/17 05:05 Dose: 125 mls/hr Potassium Chloride/Dextrose/Sod Cl (D5 Ns With 20 Meq Kcl) Confirm Administered Dose 1,000 mls @ as directed .ROUTE .[facility] ONE Stop: 03/20/17 15:14 Last Admin: 03/20/17 15:52 Dose: Not Given Multivitamins/Minerals 10 ml/Thiamine HCl 100 mg/ Folic Acid 1 mg/ Magnesium Sulfate 3 gm/ Dextrose/Water 1,017.2 mls @ 150 mls/hr IV ASDIRECTED [facility] Multivitamins/Minerals 10 ml/Thiamine HCl 100 mg/ Folic Acid 1 mg/ Magnesium Sulfate 3 gm/ Dextrose/Water 1,017.2 mls @ 150 mls/hr IV DAILY@1200 [facility] Dextrose/Water (Dextrose 5% In Water) 1,000 mls @ 125 mls/hr IV ASDIRECTED [facility] Last Admin: 03/27/17 03:30 Dose: 125 mls/hr Ketorolac Tromethamine (Toradol) Confirm Administered Dose 30 mg .ROUTE .[facility] ONE Stop: 03/24/17 08:23 Last Admin: 03/24/17 08:45 Dose: 30 mg Loperamide HCl (Imodium) 2 mg PO Q2HR PRN PRN Reason: Diarrhea (Duloxetine Hcl [ Duloxetine Hcl] 30 Mg Cap 60 mg PO DAILY [facility] Last Admin: 03/25/17 08:20 Dose: 60 mg Non-Formulary Medication (Enoxaparin [Lovenox]) 60 mg SQ BID [facility] Last Admin: 03/20/17 17:56 Dose: 60 mg Zolpidem 10mg Tablet 1 each PO BEDTIME PRN PRN Reason: SLEEP Ondansetron HCl (Zofran) 4 mg IVPUSH Q4H [facility] Last Admin: 03/21/17 18:36 Dose: 4 mg Pantoprazole Sodium (Protonix Iv) 40 mg IVPUSH ONETIME ONE Stop: 03/22/17 06:09 Last Admin: 03/22/17 06:27 Dose: 40 mg Zolpidem Tartrate (Ambien) 10 mg PO ONETIME ONE Stop: 03/19/17 22:23 Last Admin: 03/19/17 22:34 Dose: 10 mg - Exam Quality Assessment: DVT prophylaxis. No: skin breakdown General: alert, oriented HEENT: Pupils equal, Pupils reactive, EOMI, Mucous membr. moist/pink Neck: supple Lungs: Normal respiratory effort, Decreased breath sounds (in the right base today) Cardiovascular: Regular Rate, Regular Rhythm Abdomen: no tenderness, distension, abnormal bowel sounds (still hyperactive bowel sounds). No: rebound, guarding, tenderness Extremities: no edema Peripheral Pulses: 2+: Radial (L), Radial (R) Skin: warm, intact Neurological: no new focal deficit - Problem List & Annotations (1) Bowel obstruction SNOMED Code(s): 22358838 Code(s): K56.60 - UNSPECIFIED INTESTINAL OBSTRUCTION Status: Acute Priority: High Current Visit: No Qualifiers: Intestinal obstruction type: other intestinal obstruction Qualified Code(s) : K56.69 - Other intestinal obstruction - Problem List Review Problem List Initiated/Reviewed/Updated: Yes - My Orders Last 24 Hours: My Active Orders 03/27/17 08:49 Chest 1V Frontal [CR] Routine 03/27/17 11:16 Total Parental Nutrition [COMM] Routine - Assessment Assessment:: Bowel obstruction with poor differentiated Pancreatic adenocarcinoma - Plan Plan:: Discussed plan of care. Patient will be continued on current meds and management as well as fluid hydration. Discussed scheduling fluid hydration outpatient for standing orders. Negative Upper ext U/S. Signed out to Dr. Mackay for this weekend. 03/21/17: Pt has bowel obstruction.He has been kept NPO, IV hydration and NG decompression and draining fecal matter with bile. He has been afebrile and stable vitals. He has had 2 episodes of bowel obstruction in past 10 days, and he claims he has had 1 episode at [facility] and after the obstruction cleared at [place] they had CT abdomen done and reassured patient that he was fine. But he has had 3 episodes of Bowel obstruction in past one month, which does not appear to be related to biochemical abnormalities in his labs. He does not have any mechanical obstruction either. Hence I did repeat his amylase and lipase to make sure he does not have subacute pancreatic causing this, and they are normal. Will continue conservative management for bowel obstruction for now. the obstruction should resolve in next 24 hrs. Will repeat BMP and AXR upright in am. 03/22/17: Kindly see the [facility] too. Pt's lovenox and DEXAmethose has been stopped due to his NG secretion turning coffee ground. Not copious drainage, about 300cc over night. He has been started on IV protonix 40mg daily. His CBC and CMP are stable today. His hemoglobin was 13.1 today. Pt has had some nausea and abdominal discomfort, controlled on present regime. It ayoub been more than 24 hrs since obstruction, He has been passing flatus, will give another 24 hrs of conservative management and see if obstruction resolves. Will followup in AM. He might need surgical consultation. Also my concern is if he continue to have recurrent bowel obstruction, what will be his plan for nutrition post chemotherapy. As been planned for chemotherapy tomorrow. 03/23/17 Patient admitted for Bowel obstruction. We will f/u xrays. His Bowel sounds are hyperactive and he has passed some gas but his abdomen continues to be quite tender and distended. We will continue NPO at this time but due to his cachexia and weight loss we will start a short term parenteral therapy. Continue to hold lovenox and dexamethasone at this time. Continue Protonix. We will repeat labs a needed. Will discuss plan of care with Oncology. 03/24/17 Patient stable. Denied any passing of BM or gas this AM but did pass some gas yesterday. Abd x-ray did not show too much change but likely slight improvement. Patient denies any pain or discomfort. Patient continues to have NG tube with what appears 1600mL total over 24hrs. We will monitor occult blood in NG to assess restarting Lovenox. Patient will be continued on Zyprexa orally and we will clamp for oral medications. Patient does have a headache today but has improved. It is now on the right side rather than the left. 03/27/17 I am taking over care from Dr. aPdilla today. Pt still appears to have bowel obstruction. As this has been going on for more than a week now. I am concerned about bowel obstruction. His Labs today CBC,CMP, Lipid panel and Mg and Phosphorus are within normal limits. he has been on TPN. He does have decrease airentry in right base. Xray appear normal, elevated right diaphragm. I did call , Oncologist at [facility]. Her recommendation was to talk to patient , as he is still having bowel obstruction, he probably needs his obstruction corrected and might needs inpatient chemotherapy, and [place] facility does not do inpatient chemotherapy, hence advised me to talk to Patient and his family and make a decision accordingly. I did discuss with patient and his family 's recommendation. Pt wants to go to [facility] for further workup. At which point I did Talk to Dr. Van The oncologist director of accreditation at [facility] and he did agree to accept patient. Also I have discussed patient with Dr. Carpenter the accepting hospitalist. Pt is stable enough to be transferred by road ambulance, will arrange transfer to night. Further care as per Dr. Van and Dr. Carpenter. Pt is hemodynamically stable at the time of transfer.
--- NOTE | 2017-03-27 18:58 | PCM.DCSUM1 ---
Discharge Summary - Hospital Course Free Text/Narrative:: Pt was admitted on 03/19/17 for nausea and vomting. He basically had bowel obstruction and was placed on conservative management. Apparently his obstruction has not cleared up. He has been draining bilious drainage form the NG tube still. He has been on parental nutrition since 03/24/17. 03/27/17 I am taking over care from Dr. Padilla today. Pt still appears to have bowel obstruction. As this has been going on for more than a week now. I am concerned about bowel obstruction. His Labs today CBC,CMP, Lipid panel and Mg and Phosphorus are within normal limits. he has been on TPN. He does have decrease air entry in right base. Xray appear normal, elevated right diaphragm. I did call , Oncologist at . Her recommendation was to talk to patient , as he is still having bowel obstruction, he probably needs his obstruction corrected and might needs inpatient chemotherapy, and [facility] facility does not do inpatient chemotherapy, hence advised me to talk to Patient and his family and make a decision accordingly. I did discuss with patient and his family 's recommendation. Pt wants to go to [facility] for further workup. At which point I did Talk to Dr. Van The oncologist nutrition services worker at [facility] and he did agree to accept patient. Also I have discussed patient with Dr. Carpenter the accepting hospitalist. Pt is stable enough to be transferred by road ambulance, will arrange transfer to night. Further care as per Dr. Van and Dr. Carpenter. Pt is hemodynamically stable at the time of transfer. 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 who was admitted on 03/19/17 for bowel obstruction. this is his 3rd bowel obstruciton in one month. Apprently pt was planned for chemotherapy by , oncologist in [facility] for 03/23/17. Admitted for conservative management of Bowel obstruction. Kindly see H&P for details - Discharge Data Discharge Date: 03/27/17 Discharge Disposition: DC/Tfer to Acute Hospital 02 Condition: Fair - Discharge Diagnosis/Problem(s) (1) Bowel obstruction SNOMED Code(s): 14883504 ICD Code: K56.60 - UNSPECIFIED INTESTINAL OBSTRUCTION Status: Acute Priority: High Current Visit: No Qualifiers: Intestinal obstruction type: other intestinal obstruction Qualified Code(s) : K56.69 - Other intestinal obstruction - Patient Summary/Data Consults: Consultations 03/25/17 09:38 Consult to Lang Interpreter [CONS] Routine Comment: Physician Instructions: Quantity: - Patient Instructions Diet: NPO Activity: As Tolerated - Discharge Plan Home Medications: Home Meds DULoxetine HCl [Duloxetine HCl] 60 mg PO DAILY 03/04/17 [History] Loperamide HCl [Imodium A-D] 2 mg PO Q2HR PRN 03/04/17 [History] Nystatin 100,000 unit PO QID PRN 03/04/17 [History] Prochlorperazine Maleate 10 mg PO QID PRN 03/04/17 [History] Enoxaparin [Lovenox] 60 mg SQ BID 03/15/17 [History] Forms: ED Department Discharge Referrals: PCP,None [Primary Care Provider] - - Discharge Summary/Plan Comment DC Time >30 min.: Yes Discharge Summary/Plan Comment: PT has been trasnferred to [facility] under care of ( Oncologist) and ( hospitalist). Pt is hemodynamically stable at the time of transfer. - General Info Date of Service: 03/27/17 Functional Status: Reports: pain controlled, ambulating, urinating. Denies: tolerating diet - Review of Systems General: Denies: Fever, Weakness, Fatigue HEENT: Denies: glasses, headaches, sinus congestion, sore throat Pulmonary: Denies: shortness of breath, hemoptysis, wheezing Cardiovascular: Denies: Chest Pain, Lightheadedness Gastrointestinal: Reports: Abdominal pain, Other (NG tube draining bilous drainage). Denies: Flatus, Nausea, Vomiting Genitourinary: Denies: dysuria, frequency, burning Musculoskeletal: Denies: joint pain, joint swelling Skin: Denies: bruising, pruritis, rash Neurological: Denies: Confusion, Dizziness, Headache - Patient Data Vitals - Most Recent: Last Vital Signs Temp 97.7 F 03/26/17 20:30 Pulse 101 H 03/27/17 15:05 Resp 20 03/27/17 15:05 BP 132/97 H 03/27/17 15:05 Pulse Ox 96 03/27/17 15:05 Weight - Most Recent: 56.427 kg I&O - Last 24 hours: Intake & Output 03/27/17 03/27/17 03/27/17 06:59 14:59 22:59 Intake Total 100 Output Total 2225 700 Balance -2225 -600 Lab Results - Last 24 hrs: Laboratory Results - last 24 hr 03/27/17 03/27/17 03/27/17 Range/Units 09:10 09:10 09:10 WBC 6.3 (4.0-11.0) K/uL RBC 4.92 (4.50-6.50) M/uL Hgb 15.0 (13.0-18.0) g/dL Hct 44.1 (40.0-54.0) % MCV 90 (76-96) fL MCH 30.5 (27.0-32.0) pg MCHC 34.0 (31.0-35.0) g/dL RDW 14.5 (11.0-16.0) % Plt Count 119 L D (150-400) K/uL MPV 10.3 H (6.0-10.0) fL Neut % (Auto) 72.0 H (45.0-70.0) % Lymph % (Auto) 14.0 L (20.0-40.0) % [place] % (Auto) 11.0 H (3.0-10.0) % Eos % (Auto) 2.4 (1.0-5.0) % Baso % (Auto) 0.6 H (0.0-0.5) % Neut # (Auto) 4.56 (2.00-7.50) K/uL Lymph # (Auto) 0.89 L (1.50-4.00) K/uL [place] # (Auto) 0.70 (0.20-0.80) K/uL Eos # (Auto) 0.15 (0.04-0.40) K/uL Baso # (Auto) 0.04 (0.02-0.10) K/uL Sodium 138 (136-145) mmol/L Potassium 4.2 (3.5-5.1) mmol/L Chloride 100 (98-107) mmol/L Carbon Dioxide 31.5 (21.0-32.0) mmol/L Anion Gap 10.7 (5.0-15.0) mmol/L BUN 5 L (8-26) mg/dL Creatinine 1.11 (0.70-1.30) mg/dL Est Cr Clr Drug Dosing 62.22 mL/min Estimated GFR (MDRD) > 60 (>60) MLS/MIN BUN/Creatinine Ratio 4.5 L (6-25) Glucose 127 H (74-100) mg/dL Calcium 9.0 (8.5-10.1) mg/dL Phosphorus (2.5-4.9) mg/dL Magnesium 2.4 D (1.8-2.4) mg/dL Total Bilirubin 2.5 H D (0.0-1.0) mg/dL AST 38 H (15-37) U/L ALT 92 H (12-78) U/L Alkaline Phosphatase 206 H (46-116) U/L Total Protein 6.8 (6.4-8.2) g/dL Albumin 3.4 (3.4-5.0) g/dL Globulin 3.4 (2.2-4.2) g/dL Albumin/Globulin Ratio 1.0 (0.8-2.0) Triglycerides 86 (30-150) mg/dL Cholesterol 209 H (120-200) mg/dL LDL Cholesterol, Calc 145 H (0-130) mg/dL HDL Cholesterol 47 (40-60) mg/dL Cholesterol/HDL Ratio 4.4 (0.0-5.0) 03/27/17 Range/Units 09:10 WBC (4.0-11.0) K/uL RBC (4.50-6.50) M/uL Hgb (13.0-18.0) g/dL Hct (40.0-54.0) % MCV (76-96) fL MCH (27.0-32.0) pg MCHC (31.0-35.0) g/dL RDW (11.0-16.0) % Plt Count (150-400) K/uL MPV (6.0-10.0) fL Neut % (Auto) (45.0-70.0) % Lymph % (Auto) (20.0-40.0) % [place] % (Auto) (3.0-10.0) % Eos % (Auto) (1.0-5.0) % Baso % (Auto) (0.0-0.5) % Neut # (Auto) (2.00-7.50) K/uL Lymph # (Auto) (1.50-4.00) K/uL [place] # (Auto) (0.20-0.80) K/uL Eos # (Auto) (0.04-0.40) K/uL Baso # (Auto) (0.02-0.10) K/uL Sodium (136-145) mmol/L Potassium (3.5-5.1) mmol/L Chloride (98-107) mmol/L Carbon Dioxide (21.0-32.0) mmol/L Anion Gap (5.0-15.0) mmol/L BUN (8-26) mg/dL Creatinine (0.70-1.30) mg/dL Est Cr Clr Drug Dosing mL/min Estimated GFR (MDRD) (>60) MLS/MIN BUN/Creatinine Ratio (6-25) Glucose (74-100) mg/dL Calcium (8.5-10.1) mg/dL Phosphorus 4.4 (2.5-4.9) mg/dL Magnesium (1.8-2.4) mg/dL Total Bilirubin (0.0-1.0) mg/dL AST (15-37) U/L ALT (12-78) U/L Alkaline Phosphatase (46-116) U/L Total Protein (6.4-8.2) g/dL Albumin (3.4-5.0) g/dL Globulin (2.2-4.2) g/dL Albumin/Globulin Ratio (0.8-2.0) Triglycerides (30-150) mg/dL Cholesterol (120-200) mg/dL LDL Cholesterol, Calc (0-130) mg/dL HDL Cholesterol (40-60) mg/dL Cholesterol/HDL Ratio (0.0-5.0) Med Orders - Current: Current Medications Duloxetine HCl (Cymbalta) 60 mg PO DAILY SELIN Last Admin: 03/27/17 09:02 Dose: 60 mg Hydromorphone HCl (Dilaudid) 1 mg IVPUSH Q4H PRN PRN Reason: Abdominal Pain Last Admin: 03/27/17 18:39 Dose: 1 mg Multivitamins/Minerals 10 ml/Thiamine HCl 100 mg/ Folic Acid 1 mg/ Magnesium Sulfate 3 gm/ Dextrose/Water 1,017.2 mls @ 150 mls/hr IV DAILY@1200 [facility] Stop: 03/27/17 20:00 Last Admin: 03/27/17 14:17 Dose: 150 mls/hr Multivitamins/Minerals 10 ml/ (Dextrose/Water) 510 mls @ 85 mls/hr IV DAILY@ 0430 [facility] Dextrose/Water (Dextrose 10% In Water) 500 mls @ 85 mls/hr IV DAILY@1030 [facility] Amino Acids 15% 600 mls @ 75 mls/hr IVPUSH DAILY [facility] Stop: 03/30/17 20:31 Fat Emulsion Intravenous (Intralipid 20%) 250 mls @ 62.5 mls/hr IV DAILY@1630 [facility] Ketorolac Tromethamine (Toradol) 30 mg IVPUSH Q6H [facility] Stop: 03/29/17 08:01 Last Admin: 03/27/17 14:16 Dose: Not Given Lorazepam (Ativan) 0.5 mg IVPUSH BEDTIME PRN PRN Reason: Sleep Last Admin: 03/25/17 02:39 Dose: 0.5 mg Non-Formulary Medication (Enoxaparin [Lovenox]) 60 mg SQ BID@0600,1800 [facility] Last Admin: 03/26/17 17:32 Dose: Not Given Nystatin (Mycostatin) 5 ml PO QID PRN PRN Reason: Other Olanzapine (Zyprexa) 5 mg PO DAILY [facility] Last Admin: 03/27/17 09:03 Dose: 5 mg Ondansetron HCl (Zofran) 4 mg IVPUSH Q4H PRN PRN Reason: Nausea/Vomiting Last Admin: 03/27/17 13:15 Dose: 4 mg Pantoprazole Sodium (Protonix Iv) 40 mg IVPUSH DAILY [facility] Last Admin: 03/27/17 09:14 Dose: 40 mg Polyethylene Glycol (Miralax) 17 gm PO BID [facility] Last Admin: 03/27/17 09:15 Dose: Not Given Prochlorperazine Maleate (Compazine) 10 mg PO QID PRN PRN Reason: Nausea Zolpidem Tartrate (Ambien) 10 mg PO BEDTIME PRN PRN Reason: SLEEP Last Admin: 03/26/17 22:27 Dose: 10 mg Discontinued Medications Cyclobenzaprine HCl (Flexeril) 5 mg PO ONETIME ONE Stop: 03/23/17 21:34 Last Admin: 03/23/17 22:13 Dose: 5 mg Dexamethasone (Dexamethasone) 4 mg IVPUSH Q6H [facility] Last Admin: 03/21/17 18:45 Dose: 4 mg Duloxetine HCl (Cymbalta) Confirm Administered Dose 60 mg .ROUTE .STK-MED ONE Stop: 03/24/17 07:58 Last Admin: 03/24/17 08:03 Dose: Not Given Duloxetine HCl (Cymbalta) Confirm Administered Dose 60 mg .ROUTE .K-MED ONE Stop: 03/25/17 08:15 Last Admin: 03/25/17 08:45 Dose: Not Given Enoxaparin Sodium (Lovenox) Confirm Administered Dose 60 mg .ROUTE .STK-MED ONE Stop: 03/21/17 17:10 Last Admin: 03/21/17 18:01 Dose: Not Given Dextrose/Sodium Chloride (Dextrose 5%-Normal Saline) 1,000 mls @ 150 mls/hr IV ASDIRECTED [facility] Last Admin: 03/20/17 07:30 Dose: 150 mls/hr Potassium Chloride/Dextrose/Sod Cl (D5 Ns With 20 Meq Kcl) 1,000 mls @ 125 mls/ hr IV ASDIRECTED [facility] Last Admin: 03/23/17 05:05 Dose: 125 mls/hr Potassium Chloride/Dextrose/Sod Cl (D5 Ns With 20 Meq Kcl) Confirm Administered Dose 1,000 mls @ as directed .ROUTE .STK-MED ONE Stop: 03/20/17 15:14 Last Admin: 03/20/17 15:52 Dose: Not Given Multivitamins/Minerals 10 ml/Thiamine HCl 100 mg/ Folic Acid 1 mg/ Magnesium Sulfate 3 gm/ Dextrose/Water 1,017.2 mls @ 150 mls/hr IV ASDIRECTED [facility] Fat Emulsion Intravenous (Intralipid 20%) 250 mls @ 62.5 mls/hr IV DAILY [facility] Last Admin: 03/27/17 09:59 Dose: 62.5 mls/hr Multivitamins/Minerals 10 ml/Thiamine HCl 100 mg/ Folic Acid 1 mg/ Magnesium Sulfate 3 gm/ Dextrose/Water 1,017.2 mls @ 150 mls/hr IV DAILY@1200 [facility] Dextrose/Water (Dextrose 5% In Water) 1,000 mls @ 125 mls/hr IV ASDIRECTED [facility] Last Admin: 03/27/17 03:30 Dose: 125 mls/hr Ketorolac Tromethamine (Toradol) Confirm Administered Dose 30 mg .ROUTE .STK- MED ONE Stop: 03/24/17 08:23 Last Admin: 03/24/17 08:45 Dose: 30 mg Loperamide HCl (Imodium) 2 mg PO Q2HR PRN PRN Reason: Diarrhea (Duloxetine Hcl [ Duloxetine Hcl] 30 Mg Cap 60 mg PO DAILY [facility] Last Admin: 03/25/17 08:20 Dose: 60 mg Non-Formulary Medication (Enoxaparin [Lovenox]) 60 mg SQ BID [facility] Last Admin: 03/20/17 17:56 Dose: 60 mg Zolpidem 10mg Tablet 1 each PO BEDTIME PRN PRN Reason: SLEEP Ondansetron HCl (Zofran) 4 mg IVPUSH Q4H [facility] Last Admin: 03/21/17 18:36 Dose: 4 mg Pantoprazole Sodium (Protonix Iv) 40 mg IVPUSH ONETIME ONE Stop: 03/22/17 06:09 Last Admin: 03/22/17 06:27 Dose: 40 mg Zolpidem Tartrate (Ambien) 10 mg PO ONETIME ONE Stop: 03/19/17 22:23 Last Admin: 03/19/17 22:34 Dose: 10 mg - Exam General: Reports: alert, oriented HEENT: Reports: Pupils equal, Pupils reactive, EOMI, Mucous membr. moist/pink Neck: Reports: supple Lungs: Reports: Normal respiratory effort, Decreased breath sounds (rigth base) Cardiovascular: Reports: Regular Rate, Regular Rhythm Abdomen: Reports: tenderness (mild periumbilical tenderness), distension, abnormal bowel sounds (hyperactive tympanitic bowel sounds). Denies: rigidity, rebound, guarding Back Exam: Reports: Normal Inspection, Full Range of Motion Extremities: Reports: no edema Skin: Reports: warm, intact Neurological: Reports: no new focal deficit *Q Meaningful Use (DIS) - VTE *Q VTE Criteria *Q: - Stroke *Q Stroke Criteria *Q: - AMI *Q AMI Criteria *Q:
[2017-03-28] MEDS ORDERED: WATER IV SCH ×2 (04:30)
[2017-03-28] MEDS ORDERED: DEXTROSE IV SCH ×2 (04:30)
[2017-03-28] MEDS ORDERED: VITAMIN K IV SCH ×2 (04:30)
[2017-03-28] MEDS ORDERED: MVI IV SCH ×2 (04:30)
[2017-03-28] MEDS ORDERED: Dextrose 10% in Water 500 ML IV SCH (10:30)
[2017-03-28] MEDS ORDERED: Fat Emulsion 250 ML IV SCH (16:30)
[2017-03-28] MEDS ORDERED: AMINO ACIDS IVPUSH SCH (20:30)
--- NOTE | 2017-03-29 18:54 | CR ---
DATE OF SERVICE: 03/27/2017 CLINICAL DATA: Diminished lung sound. AP CHEST No prior films are available for comparison. There is an NG tube in place with its distal tip in the stomach. There are gas filled distended loops of small bowel in the mid and upper abdomen and the visualized colon appears dilated. There is a right-sided Port-A-Cath in place with its distal tip in the region of the superior vena cava. The heart size is normal. There is eventration of the right hemidiaphragm and there is atelectasis and consolidation in the right lower lung. There is blunting of the right costophrenic angle consistent with a right pleural effusion. The left lung appears clear. [id number] MTDD
--- NOTE | 2017-03-30 11:34 | PCM.PN ---
- General Info Date of Service: 03/26/17 Subjective Update: Patient states he is feeling much better and does feel hungry. He has only still passed more gas this am. Denies any stomach concerns at this time. NG tube still in place with some output. - Review of Systems General: Reports: No Symptoms HEENT: Reports: no symptoms Pulmonary: Reports: no symptoms Cardiovascular: Reports: No Symptoms Gastrointestinal: Reports: Decreased appetite Genitourinary: Reports: no symptoms Musculoskeletal: Reports: no symptoms - Patient Data Vitals - most recent: Last Vital Signs Temp 36.5 C 03/26/17 20:30 Pulse 101 H 03/27/17 15:05 Resp 20 03/27/17 15:05 BP 132/97 H 03/27/17 15:05 Pulse Ox 96 03/27/17 15:05 Weight - most recent: 59.33 kg Med Orders - Current: Current Medications Discontinued Medications Cyclobenzaprine HCl (Flexeril) 5 mg PO ONETIME ONE Stop: 03/23/17 21:34 Last Admin: 03/23/17 22:13 Dose: 5 mg Dexamethasone (Dexamethasone) 4 mg IVPUSH Q6H [facility] Last Admin: 03/21/17 18:45 Dose: 4 mg Duloxetine HCl (Cymbalta) Confirm Administered Dose 60 mg .ROUTE .STK-MED ONE Stop: 03/24/17 07:58 Last Admin: 03/24/17 08:03 Dose: Not Given Duloxetine HCl (Cymbalta) Confirm Administered Dose 60 mg .ROUTE .STK-MED ONE Stop: 03/25/17 08:15 Last Admin: 03/25/17 08:45 Dose: Not Given Duloxetine HCl (Cymbalta) 60 mg PO DAILY [facility] Last Admin: 03/27/17 09:02 Dose: 60 mg Enoxaparin Sodium (Lovenox) Confirm Administered Dose 60 mg .ROUTE .STK-MED ONE Stop: 03/21/17 17:10 Last Admin: 03/21/17 18:01 Dose: Not Given Hydromorphone HCl (Dilaudid) 1 mg IVPUSH Q4H PRN PRN Reason: Abdominal Pain Last Admin: 03/27/17 18:39 Dose: 1 mg Dextrose/Sodium Chloride (Dextrose 5%-Normal Saline) 1,000 mls @ 150 mls/hr IV ASDIRECTED [facility] Last Admin: 03/20/17 07:30 Dose: 150 mls/hr Potassium Chloride/Dextrose/Sod Cl (D5 Ns With 20 Meq Kcl) 1,000 mls @ 125 mls/ hr IV ASDIRECTED [facility] Last Admin: 03/23/17 05:05 Dose: 125 mls/hr Potassium Chloride/Dextrose/Sod Cl (D5 Ns With 20 Meq Kcl) Confirm Administered Dose 1,000 mls @ as directed .ROUTE .STK-MED ONE Stop: 03/20/17 15:14 Last Admin: 03/20/17 15:52 Dose: Not Given Multivitamins/Minerals 10 ml/Thiamine HCl 100 mg/ Folic Acid 1 mg/ Magnesium Sulfate 3 gm/ Dextrose/Water 1,017.2 mls @ 150 mls/hr IV ASDIRECTED [facility] Fat Emulsion Intravenous (Intralipid 20%) 250 mls @ 62.5 mls/hr IV DAILY [facility] Last Admin: 03/27/17 09:59 Dose: 62.5 mls/hr Multivitamins/Minerals 10 ml/Thiamine HCl 100 mg/ Folic Acid 1 mg/ Magnesium Sulfate 3 gm/ Dextrose/Water 1,017.2 mls @ 150 mls/hr IV DAILY@1200 [facility] Dextrose/Water (Dextrose 5% In Water) 1,000 mls @ 125 mls/hr IV ASDIRECTED [facility] Last Admin: 03/27/17 03:30 Dose: 125 mls/hr Multivitamins/Minerals 10 ml/Thiamine HCl 100 mg/ Folic Acid 1 mg/ Magnesium Sulfate 3 gm/ Dextrose/Water 1,017.2 mls @ 150 mls/hr IV DAILY@1200 [facility] Stop: 03/27/17 20:00 Last Admin: 03/27/17 14:17 Dose: 150 mls/hr Multivitamins/Minerals 10 ml/ (Dextrose/Water) 510 mls @ 85 mls/hr IV DAILY@ 0430 [facility] Dextrose/Water (Dextrose 10% In Water) 500 mls @ 85 mls/hr IV DAILY@1030 [facility] Amino Acids 15% 600 mls @ 75 mls/hr IVPUSH DAILY [facility] Stop: 03/30/17 20:31 Fat Emulsion Intravenous (Intralipid 20%) 250 mls @ 62.5 mls/hr IV DAILY@1630 [facility] Ketorolac Tromethamine (Toradol) 30 mg IVPUSH Q6H [facility] Stop: 03/29/17 08:01 Last Admin: 03/27/17 14:16 Dose: Not Given Ketorolac Tromethamine (Toradol) Confirm Administered Dose 30 mg .ROUTE .STK- MED ONE Stop: 03/24/17 08:23 Last Admin: 03/24/17 08:45 Dose: 30 mg Loperamide HCl (Imodium) 2 mg PO Q2HR PRN PRN Reason: Diarrhea Lorazepam (Ativan) 0.5 mg IVPUSH BEDTIME PRN PRN Reason: Sleep Last Admin: 03/25/17 02:39 Dose: 0.5 mg (Duloxetine Hcl [ Duloxetine Hcl] 30 Mg Cap 60 mg PO DAILY [facility] Last Admin: 03/25/17 08:20 Dose: 60 mg Non-Formulary Medication (Enoxaparin [Lovenox]) 60 mg SQ BID [facility] Last Admin: 03/20/17 17:56 Dose: 60 mg Zolpidem 10mg Tablet 1 each PO BEDTIME PRN PRN Reason: SLEEP Non-Formulary Medication (Enoxaparin [Lovenox]) 60 mg SQ BID@0600,1800 [facility] Last Admin: 03/26/17 17:32 Dose: Not Given Nystatin (Mycostatin) 5 ml PO QID PRN PRN Reason: Other Olanzapine (Zyprexa) 5 mg PO DAILY [facility] Last Admin: 03/27/17 09:03 Dose: 5 mg Ondansetron HCl (Zofran) 4 mg IVPUSH Q4H [facility] Last Admin: 03/21/17 18:36 Dose: 4 mg Ondansetron HCl (Zofran) 4 mg IVPUSH Q4H PRN PRN Reason: Nausea/Vomiting Last Admin: 03/27/17 13:15 Dose: 4 mg Pantoprazole Sodium (Protonix Iv) 40 mg IVPUSH ONETIME ONE Stop: 03/22/17 06:09 Last Admin: 03/22/17 06:27 Dose: 40 mg Pantoprazole Sodium (Protonix Iv) 40 mg IVPUSH DAILY [facility] Last Admin: 03/27/17 09:14 Dose: 40 mg Polyethylene Glycol (Miralax) 17 gm PO BID [facility] Last Admin: 03/27/17 09:15 Dose: Not Given Prochlorperazine Maleate (Compazine) 10 mg PO QID PRN PRN Reason: Nausea Zolpidem Tartrate (Ambien) 10 mg PO ONETIME ONE Stop: 03/19/17 22:23 Last Admin: 03/19/17 22:34 Dose: 10 mg Zolpidem Tartrate (Ambien) 10 mg PO BEDTIME PRN PRN Reason: SLEEP Last Admin: 03/26/17 22:27 Dose: 10 mg - Exam General: alert, oriented, cooperative HEENT: Pupils equal, Pupils reactive Neck: supple Lungs: Clear to auscultation, Normal respiratory effort Cardiovascular: Regular Rate, Regular Rhythm Abdomen: distension, abnormal bowel sounds (some hyperactive, some decrease bowel sounds in mid right quadrant), other (improved distension) Back Exam: Normal Inspection Extremities: no edema - Problem List & Annotations (1) Nausea & vomiting SNOMED Code(s): 04462519 Code(s): R11.2 - NAUSEA WITH VOMITING, UNSPECIFIED Status: Acute Priority : High Qualifiers: Vomiting type: unspecified Vomiting Intractability: intractable Qualified Code(s): R11.2 - Nausea with vomiting, unspecified (2) Pancreatic adenocarcinoma SNOMED Code(s): 424125197, 719213532 Code(s): C25.9 - MALIGNANT NEOPLASM OF PANCREAS, UNSPECIFIED Status: Chronic Priority: High (3) Decreased appetite SNOMED Code(s): 76482870 Code(s): R63.0 - ANOREXIA Status: Acute Priority: High (4) Weight loss SNOMED Code(s): 838596559, 931674174 Code(s): R63.4 - ABNORMAL WEIGHT LOSS Status: Acute Priority: High (5) Chemotherapy induced nausea and vomiting SNOMED Code(s): 092684068 Code(s): R11.2 - NAUSEA WITH VOMITING, UNSPECIFIED; T45.1X5A - ADVERSE EFFECT OF ANTINEOPLASTIC AND IMMUNOSUP DRUGS, INIT Status: Acute Priority: High (6) Pulmonary embolism on left SNOMED Code(s): 13759510, 07199180 Code(s): I26.99 - OTHER PULMONARY EMBOLISM WITHOUT ACUTE COR PULMONALE Status: Acute Priority: High (7) Chemotherapy adverse reaction SNOMED Code(s): 081971938 Code(s): T45.1X5A - ADVERSE EFFECT OF ANTINEOPLASTIC AND IMMUNOSUP DRUGS, INIT Status: Acute Priority: High Qualifiers: Encounter type: subsequent encounter Qualified Code(s): T45.1X5D - Adverse effect of antineoplastic and immunosuppressive drugs, subsequent encounter (8) Abdominal pain SNOMED Code(s): 82122028 Code(s): R10.9 - UNSPECIFIED ABDOMINAL PAIN Status: Acute Priority: High Qualifiers: Abdominal location: lower abdomen, unspecified Qualified Code(s): R10.30 - Lower abdominal pain, unspecified (9) Abdominal distension SNOMED Code(s): 83101496 Code(s): R14.0 - ABDOMINAL DISTENSION (GASEOUS) Status: Acute Priority: High (10) Metastatic adenocarcinoma SNOMED Code(s): 518521934, 149802756 Code(s): C79.9 - SECONDARY MALIGNANT NEOPLASM OF UNSPECIFIED SITE Status: Acute Priority: High (11) Cachexia SNOMED Code(s): 782039727 Code(s): R64 - CACHEXIA Status: Acute - Problem List Review Problem List Initiated/Reviewed/Updated: Yes - Assessment Assessment:: Bowel obstruction with poor differentiated Pancreatic adenocarcinoma - Plan Plan:: Discussed plan of care. Patient will be continued on current meds and management as well as fluid hydration. Discussed scheduling fluid hydration outpatient for standing orders. Negative Upper ext U/S. Signed out to Dr. Mackay for this weekend. 03/21/17: Pt has bowel obstruction.He has been kept NPO, IV hydration and NG decompression and draining fecal matter with bile. He has been afebrile and stable vitals. He has had 2 episodes of bowel obstruction in past 10 days, and he claims he has had 1 episode at [facility] and after the obstruction cleared at [place] they had CT abdomen done and reassured patient that he was fine. But he has had 3 episodes of Bowel obstruction in past one month, which does not appear to be related to biochemical abnormalities in his labs. He does not have any mechanical obstruction either. Hence I did repeat his amylase and lipase to make sure he does not have subacute pancreatic causing this, and they are normal. Will continue conservative management for bowel obstruction for now. the obstruction should resolve in next 24 hrs. Will repeat BMP and AXR upright in am. 03/22/17: Kindly see the UTE too. Pt's lovenox and DEXAmethose has been stopped due to his NG secretion turning coffee ground. Not copious drainage, about 300cc over night. He has been started on IV protonix 40mg daily. His CBC and CMP are stable today. His hemoglobin was 13.1 today. Pt has had some nausea and abdominal discomfort, controlled on present regime. It ayoub been more than 24 hrs since obstruction, He has been passing flatus, will give another 24 hrs of conservative management and see if obstruction resolves. Will followup in AM. He might need surgical consultation. Also my concern is if he continue to have recurrent bowel obstruction, what will be his plan for nutrition post chemotherapy. As been planned for chemotherapy tomorrow. 03/23/17 Patient admitted for Bowel obstruction. We will f/u xrays. His Bowel sounds are hyperactive and he has passed some gas but his abdomen continues to be quite tender and distended. We will continue NPO at this time but due to his cachexia and weight loss we will start a short term parenteral therapy. Continue to hold lovenox and dexamethasone at this time. Continue Protonix. We will repeat labs a needed. Will discuss plan of care with Oncology. 03/24/17 Patient stable. Denied any passing of BM or gas this AM but did pass some gas yesterday. Abd x-ray did not show too much change but likely slight improvement. Patient denies any pain or discomfort. Patient continues to have NG tube with what appears 1600mL total over 24hrs. We will monitor occult blood in NG to assess restarting Lovenox. Patient will be continued on Zyprexa orally and we will clamp for oral medications. Patient does have a headache today but has improved. It is now on the right side rather than the left. 03/25/16 Patient has improved abdominal distension and passing gas but no BM. We will continue to monitor closely. Keep NG tube clamped at this time for medications. 03/26/17 Patient will be started on trial of clear liquid. His pain has improved greatly and now has an appetite. He continues to pass gas at this time. Distension improved again. We will slowly give trial of clears. Patient to be signed out to Dr. Thompson caal.
== END 2017-03-27 20:15 | DRG 388 ==
LOC: LB.ED 17:31 → LB.MS 17:50 → UNDOADMOB 17:50 → LB.MS 18:29 → OBSVTOIN 03-23 11:02 → LB.MS 03-23 11:02
PROVIDERS: ADMIT Family Medicine; ATTEND Family Medicine
PROC: 0D9670Z Drainage of Stomach with Drainage Device, Via Natural or Artificial Opening (ICD-10-PCS; principal; 2017-03-21)
DX: K56.69 Other intestinal obstruction (principal); I26.99 Other pulmonary embolism without acute cor pulmonale; C25.9 Malignant neoplasm of pancreas, unspecified; C79.9 Secondary malignant neoplasm of unspecified site; K92.2 Gastrointestinal hemorrhage, unspecified; R64 Cachexia; T45.1X5A Adverse effect of antineoplastic and immunosuppressive drugs, initial encounter; R63.0 Anorexia; R63.4 Abnormal weight loss; M54.2 Cervicalgia; R51 Headache; Z79.01 Long term (current) use of anticoagulants; Z79.899 Other long term (current) drug therapy; Z86.711 Personal history of pulmonary embolism
CPT/HCPCS: 36415; 71010; 74000; 80048; 80053; 80061; 82150; 83690; 83735; 84100; 85025; 93970; 99284; A0425; A0429; A9270-GY; C9113; J1100; J1170; J1885; J2060; J2405; J3411; J3475; J3480; J3490; J7060

== ENCOUNTER 2017-04-05 12:51 | Observation (INO) | payer OTHER ==
[2017-04-05] MEDS ORDERED: Sodium Chloride 0.9% 1,000 ML IV SCH (13:00)
[2017-04-05] MEDS ORDERED: MVI, Adult with Vitamin K 10 ML, Thiamine 100 MG, Folic Acid 1 MG, Magnesium Sulfate 3 ... IV SCH ×5 (13:30)
[2017-04-05] MEDS ORDERED: Acetaminophen/oxyCODONE 325-5 MG Tab PO SCH (15:00)
[2017-04-05 16:26] VITALS: BP 98/68
--- NOTE | 2017-04-05 16:39 | EDM.PDOC ---
ED HPI GENERAL MEDICAL PROBLEM - General Chief Complaint: Abdominal Pain Stated Complaint: dehydration, pancreatic Ca Time Seen by Provider: 04/05/17 13:00 Source of Information: Reports: Patient, Family - History of Present Illness INITIAL COMMENTS - FREE TEXT/NARRATIVE: This is a 56yo M who present to the ER for generalized malaise, decreased appetite, vomiting, and abdominal discomfort. Patient has been diagnosed with metastatic pancreatic adenocarcinoma and recently had transverse colostomy done on 03/28/17 for multiple episodes of obstruction. Patient has had severe cramping the past few days and increasing weakness and generalized malaise. Onset: Gradual Duration: Day(s): Location: Reports: Abdomen, Generalized Severity: Severe Improves with: Reports: None Worsens with: Reports: None Associated Symptoms: Reports: Loss of Appetite, Malaise, Nausea/Vomiting, Weakness - Related Data Allergies Allergy/AdvReac Type Severity Reaction Status Date / Time No Known Allergies Allergy Verified 03/19/17 19:30 Home Meds: Home Meds DULoxetine HCl [Duloxetine HCl] 60 mg PO DAILY 03/04/17 [History] Loperamide HCl [Imodium A-D] 2 mg PO Q2HR PRN 03/04/17 [History] Nystatin 100,000 unit PO QID PRN 03/04/17 [History] Prochlorperazine Maleate 10 mg PO QID PRN 03/04/17 [History] Enoxaparin [Lovenox] 60 mg SQ BID 04/05/17 [History] Past Medical History - Past Health History Medical/Surgical History: Denies Medical/Surgical History Respiratory History: Reports: PE Other Respiratory History: 2 PE left side diagnosed Thursday at [facility] 100 % receiving lovenox 60mg bid Gastrointestinal History: Reports: Bowel Obstruction, Jaundice Oncologic (Cancer) History: Reports: Pancreatic, Other (See Below) Other Oncologic History: Hx Pancreatic Adenocarcinoma, will restart chemo - Past Surgical History Respiratory Surgical History: Reports: None GI Surgical History: Reports: Other (See Below) Other GI Surgeries/Procedures: Ileostomy March 2017 Oncologic Surgical History: Reports: None Social & Family History - Family History Family Medical History: Noncontributory - Tobacco Use Smoking Status *Q: Never Smoker Second Hand Smoke Exposure: No - Caffeine Use Caffeine Use: Reports: None - Recreational Drug Use Recreational Drug Use: No ED ROS GENERAL - Review of Systems Review Of Systems: ROS reveals no pertinent complaints other than HPI. ED EXAM, GENERAL - Physical Exam Exam: See Below Exam Limited By: No Limitations General Appearance: Alert, Moderate Distress, Cachetic Eye Exam: Bilateral Eye: EOMI, PERRL Ears: Normal External Exam Respiratory/Chest: No Respiratory Distress, Lungs Clear, Normal Breath Sounds Cardiovascular: Normal Peripheral Pulses, Regular Rate, Rhythm Peripheral Pulses: 1+: Dorsalis Pedis (L), Dorsalis Pedis (R) GI/Abdominal: Abnormal Bowel Sounds (very minimal bowel sounds) Psychiatric: Normal Affect, Normal Mood Skin Exam: Jaundice Course - Vital Signs Last Recorded V/S: Last Vital Signs Temp 35.9 C 04/05/17 16:26 Pulse 125 H 04/05/17 16:26 Resp 20 04/05/17 16:26 BP 98/68 04/05/17 16:26 Pulse Ox 94 L 04/05/17 16:26 - Orders/Labs/Meds Orders: Active Orders 24 hr Category Date Time Status Patient Status [ADT] Routine ADT 04/05/17 13:26 Active Ambulate [RC] PER UNIT ROUTINE Care 04/05/17 13:26 Active Oxygen Therapy [RC] PRN Care 04/05/17 13:26 Active Vital Signs [RC] Q4H Care 04/05/17 13:26 Active Nothing per Oral Now Diet [DIET] Diet 04/05/17 Dinner Ordered MVI, Adult with Vitamin K [Infuvite Adult] 10 ml Med 04/05/17 13:30 Active Thiamine [Vitamin B-1] 100 mg Folic Acid 1 mg Magnesium Sulfate [Magnesium Sulfate 50%] 3 gm Sodium Chloride 0.9% [Normal Saline] 1,000 ml IV ASDIRECTED Sodium Chloride 0.9% [Normal Saline] 1,000 ml Med 04/05/17 13:00 Active IV ASDIRECTED Medication Orders Sodium Chloride (Normal Saline) 1,000 mls @ 350 mls/hr IV ASDIRECTED [facility] Multivitamins/Minerals 10 ml/Thiamine HCl 100 mg/ Folic Acid 1 mg/ Magnesium Sulfate 3 gm/ Sodium Chloride 1,017.2 mls @ 250 mls/hr IV ASDIRECTED [facility] Last Admin: 04/05/17 14:47 Dose: 250 mls/hr Oxycodone/Acetaminophen (Percocet 325-5 Mg) 1 tab PO Q4H [facility] Last Admin: 04/05/17 15:01 Dose: 1 tab Labs: Laboratory Tests 04/05/17 04/05/17 04/05/17 Range/Units 12:59 13:20 13:20 WBC 12.3 H D (4.0-11.0) K/uL RBC 4.31 L (4.50-6.50) M/uL Hgb 12.8 L (13.0-18.0) g/dL Hct 38.9 L (40.0-54.0) % MCV 90 (76-96) fL MCH 29.7 (27.0-32.0) pg MCHC 32.9 (31.0-35.0) g/dL RDW 15.1 (11.0-16.0) % Plt Count 270 D (150-400) K/uL MPV 10.3 H (6.0-10.0) fL Neut % (Auto) 86.6 H (45.0-70.0) % Lymph % (Auto) 3.5 L (20.0-40.0) % Stevens % (Auto) 9.7 (3.0-10.0) % Eos % (Auto) 0.0 L (1.0-5.0) % Baso % (Auto) 0.2 (0.0-0.5) % Neut # (Auto) 10.69 H (2.00-7.50) K/uL Lymph # (Auto) 0.43 L (1.50-4.00) K/uL Stevens # (Auto) 1.19 H (0.20-0.80) K/uL Eos # (Auto) 0.00 L (0.04-0.40) K/uL Baso # (Auto) 0.02 (0.02-0.10) K/uL Sodium 136 (136-145) mmol/L Potassium 5.2 H D (3.5-5.1) mmol/L Chloride 100 (98-107) mmol/L Carbon Dioxide 23.0 D (21.0-32.0) mmol/L Anion Gap 18.2 H (5.0-15.0) mmol/L BUN 22 D (8-26) mg/dL Creatinine 1.71 H D (0.70-1.30) mg/dL Est Cr Clr Drug Dosing TNP Estimated GFR (MDRD) 42 L (>60) MLS/MIN BUN/Creatinine Ratio 12.9 (6-25) Glucose 132 H (74-100) mg/dL Calcium 8.9 (8.5-10.1) mg/dL Total Bilirubin 5.9 H D (0.0-1.0) mg/dL AST 47 H (15-37) U/L ALT 149 H (12-78) U/L Alkaline Phosphatase 280 H (46-116) U/L Total Protein 6.1 L (6.4-8.2) g/dL Albumin 2.2 L (3.4-5.0) g/dL Globulin 3.9 (2.2-4.2) g/dL Albumin/Globulin Ratio 0.6 L (0.8-2.0) Urine Color Brown Urine Appearance Clear (CLEAR) Urine pH 5.0 (5.0-8.0) Ur Specific [place] 1.025 (1.003-1.030) Urine Protein 100 H (NEGATIVE) mg/dL Urine Glucose (UA) 100 H (NEGATIVE) mg/dL Urine Ketones 15 H (NEGATIVE) mg/dL Urine Occult Blood Trace-intact H (NEGATIVE) Urine Nitrite Positive H (NEGATIVE) Urine Bilirubin Large H (NEGATIVE) Urine Urobilinogen 4.0 H (0.2-1.0) E.U./dL Ur Leukocyte Esterase Large H (NEGATIVE) Urine RBC 0-5 H /HPF Urine WBC 30-40 H /HPF Ur Squamous Epith Cells Rare /HPF Urine Bacteria Few /HPF Urine Mucus Moderate /HPF Meds: Medications Generic Name Dose Route Start Last Admin Trade Name Freq PRN Reason Stop Dose Admin Sodium Chloride 1,000 mls @ 350 mls/hr 04/05/17 13:00 Normal Saline IV ASDIRECTED [facility] Multivitamins/Minerals 10 ml/ 1,017.2 mls @ 250 mls/hr 04/05/17 13:30 14:47 Thiamine HCl 100 mg/ Folic IV 250 mls/hr Acid 1 mg/ Magnesium Sulfate 3 ASDIRECTED SELIN Administration gm/ Sodium Chloride Oxycodone/Acetaminophen 1 tab 04/05/17 15:00 04/05/17 15:01 Percocet 325-5 Mg PO 1 tab Q4H [facility]IN Administration Departure - Departure Time of Disposition: 16:38 Disposition: DC/T[facility] to [facility] 02 Clinical Impression: Obstruction of biliary tree, Obstructive jaundice due to cancer, Dehydration, Hyperkalemia, Elevated liver enzymes, Renal dysfunction, Pancreatic adenocarcinoma, Weight loss, Cachexia, Loss of appetite Nausea & vomiting Qualifiers: Vomiting type: unspecified Vomiting Intractability: intractable Qualified Code( s): R11.2 - Nausea with vomiting, unspecified UTI (urinary tract infection) Qualifiers: Urinary tract infection type: site unspecified Hematuria presence: with hematuria Qualified Code(s): N39.0 - Urinary tract infection, site not specified ; R31.9 - Hematuria, unspecified Anemia Qualifiers: Anemia type: unspecified type Qualified Code(s): D64.9 - Anemia, unspecified Abdominal pain Qualifiers: Abdominal location: generalized Qualified Code(s): R10.84 - Generalized abdominal pain - Discharge Information - Problem List Review Problem List Initiated/Reviewed/Updated: Yes - My Orders Last 24 Hours: My Active Orders 04/05/17 13:00 Sodium Chloride 0.9% [Normal Saline] 1,000 ml IV ASDIRECTED 04/05/17 13:26 Patient Status [ADT] Routine Ambulate [RC] PER UNIT ROUTINE Oxygen Therapy [RC] PRN Vital Signs [RC] Q4H 04/05/17 13:30 MVI, Adult with Vitamin K [Infuvite Adult] 10 ml Thiamine [Vitamin B-1] 100 mg Folic Acid 1 mg Magnesium Sulfate [Magnesium Sulfate 50%] 3 gm Sodium Chloride 0.9% [Normal Saline] 1,000 ml IV ASDIRECTED 04/05/17 Dinner Nothing per Oral Now Diet [DIET] - Assessment/Plan Last 24 Hours: My Active Orders 04/05/17 13:00 Sodium Chloride 0.9% [Normal Saline] 1,000 ml IV ASDIRECTED 04/05/17 13:26 Patient Status [ADT] Routine Ambulate [RC] PER UNIT ROUTINE Oxygen Therapy [RC] PRN Vital Signs [RC] Q4H 04/05/17 13:30 MVI, Adult with Vitamin K [Infuvite Adult] 10 ml Thiamine [Vitamin B-1] 100 mg Folic Acid 1 mg Magnesium Sulfate [Magnesium Sulfate 50%] 3 gm Sodium Chloride 0.9% [Normal Saline] 1,000 ml IV ASDIRECTED 04/05/17 Dinner Nothing per Oral Now Diet [DIET] Plan: Patient to be admitted for observation pending labs and discussion with Oncology , Surgery and Hospitalists in [place]. Start fluid resuscitation.
--- NOTE | 2017-04-05 16:49 | PCM.DCSUM1 ---
Discharge Summary - Discharge Data Discharge Date: 04/05/17 Discharge Disposition: DC/Tfer to Acute Hospital 02 Condition: Good - Discharge Diagnosis/Problem(s) (1) Abdominal pain SNOMED Code(s): 91136235 ICD Code: R10.9 - UNSPECIFIED ABDOMINAL PAIN Status: Acute Current Visit : Yes (2) Anemia SNOMED Code(s): 641058675 ICD Code: D64.9 - ANEMIA, UNSPECIFIED Status: Acute Current Visit: Yes Qualifiers: Anemia type: unspecified type Qualified Code(s): D64.9 - Anemia, unspecified (3) Cachexia SNOMED Code(s): 253192874 ICD Code: R64 - CACHEXIA Status: Chronic Priority: Medium Current Visit : Yes (4) Dehydration SNOMED Code(s): 38181837 ICD Code: E86.0 - DEHYDRATION Status: Acute Priority: High Current Visit: Yes (5) Elevated liver enzymes SNOMED Code(s): 813517892, 690970976 ICD Code: R74.8 - ABNORMAL LEVELS OF OTHER SERUM ENZYMES Status: Acute Priority: Medium Current Visit: Yes (6) Hyperkalemia SNOMED Code(s): 20597176 ICD Code: E87.5 - HYPERKALEMIA Status: Acute Priority: Medium Current Visit: Yes (7) Loss of appetite SNOMED Code(s): 23561955 ICD Code: R63.0 - ANOREXIA Status: Chronic Priority: High Current Visit : Yes (8) Nausea & vomiting SNOMED Code(s): 24322922 ICD Code: R11.2 - NAUSEA WITH VOMITING, UNSPECIFIED Status: Acute Priority: High Current Visit: Yes Qualifiers: Vomiting type: unspecified Vomiting Intractability: intractable Qualified Code(s): R11.2 - Nausea with vomiting, unspecified (9) Obstruction of biliary tree Status: Acute Priority: High Current Visit: Yes (10) Obstructive jaundice due to cancer SNOMED Code(s): 60148256 ICD Code: K83.1 - OBSTRUCTION OF BILE DUCT; C80.1 - MALIGNANT (PRIMARY) NEOPLASM, UNSPECIFIED Status: Acute Priority: High Current Visit: Yes (11) Pancreatic adenocarcinoma SNOMED Code(s): 286404378, 313690548 ICD Code: C25.9 - MALIGNANT NEOPLASM OF PANCREAS, UNSPECIFIED Status: Chronic Priority: High Current Visit: Yes (12) Renal dysfunction Status: Acute Priority: High Current Visit: Yes (13) UTI (urinary tract infection) SNOMED Code(s): 82855080 ICD Code: N39.0 - URINARY TRACT INFECTION, SITE NOT SPECIFIED Status: Acute Priority: High Current Visit: Yes Qualifiers: Urinary tract infection type: site unspecified Hematuria presence: with hematuria Qualified Code(s): N39.0 - Urinary tract infection, site not specified; R31.9 - Hematuria, unspecified (14) Weight loss SNOMED Code(s): 096086762, 443612669 ICD Code: R63.4 - ABNORMAL WEIGHT LOSS Status: Acute Priority: High Current Visit: Yes (15) Dehydration SNOMED Code(s): 02282537 ICD Code: E86.0 - DEHYDRATION Status: Resolved Priority: High Current Visit: Yes - Patient Instructions Diet: NPO Activity: Rest and Relax Today - Discharge Plan Home Medications: Home Meds DULoxetine HCl [Duloxetine HCl] 60 mg PO DAILY 03/04/17 [History] Loperamide HCl [Imodium A-D] 2 mg PO Q2HR PRN 03/04/17 [History] Nystatin 100,000 unit PO QID PRN 03/04/17 [History] Prochlorperazine Maleate 10 mg PO QID PRN 03/04/17 [History] Enoxaparin [Lovenox] 60 mg SQ BID 04/05/17 [History] - Discharge Summary/Plan Comment DC Time >30 min.: Yes Discharge Summary/Plan Comment: Patient plan discussed with [facility] Hospitalist and they would feel more comfortable going back to the center that did Conor's surgery. Discussed plan of care with Dr. Gomes and he states he does not feel he will be a surgical candidate at this time and for Oncology or a hospitalist to manage. Discussed with Dr. Barbosa and she accepted patient and will continue care and discussion of prognosis in [place]. - General Info Date of Service: 04/05/17 Functional Status: Denies: tolerating diet - Review of Systems General: Reports: Weakness HEENT: Reports: no symptoms Pulmonary: Reports: no symptoms Cardiovascular: Reports: No Symptoms Gastrointestinal: Reports: Abdominal pain, Decreased appetite, Nausea, Vomiting Musculoskeletal: Reports: no symptoms Skin: Reports: jaundice Neurological: Reports: Weakness Psychiatric: Reports: no symptoms - Patient Data Vitals - Most Recent: Last Vital Signs Temp 35.9 C 04/05/17 16:26 Pulse 125 H 04/05/17 16:26 Resp 20 04/05/17 16:26 BP 98/68 04/05/17 16:26 Pulse Ox 94 L 04/05/17 16:26 Weight - Most Recent: 58.967 kg Lab Results - Last 24 hrs: Laboratory Results - last 24 hr 04/05/17 04/05/17 04/05/17 Range/Units 15:00 15:00 15:00 VBG pH 7.38 (7.31-7.41) Lactic Acid 4.20 H (0.90-1.70) mmol/L Direct Bilirubin 4.8 H (0.0-0.3) mg/dL Lipase 97 (73-393) U/L Med Orders - Current: Current Medications Sodium Chloride (Normal Saline) 1,000 mls @ 350 mls/hr IV ASDIRECTED [facility] Multivitamins/Minerals 10 ml/Thiamine HCl 100 mg/ Folic Acid 1 mg/ Magnesium Sulfate 3 gm/ Sodium Chloride 1,017.2 mls @ 250 mls/hr IV ASDIRECTED [facility] Last Admin: 04/05/17 14:47 Dose: 250 mls/hr Oxycodone/Acetaminophen (Percocet 325-5 Mg) 1 tab PO Q4H [facility] Last Admin: 04/05/17 15:01 Dose: 1 tab - Exam General: Reports: alert, oriented, cooperative HEENT: Reports: Scleral icterus Neck: Reports: supple Lungs: Reports: Clear to auscultation, Normal respiratory effort Cardiovascular: Reports: Regular Rate, Regular Rhythm Abdomen: Reports: abnormal bowel sounds (decreased ) Back Exam: Reports: Normal Inspection Skin: Reports: other (jaundiced) Neurological: Reports: no new focal deficit Psy/Mental Status: Reports: alert, normal affect, normal mood *Q Meaningful Use (DIS) - VTE *Q VTE Criteria *Q: - Stroke *Q Stroke Criteria *Q: - AMI *Q AMI Criteria *Q:
== END 2017-04-05 17:00 ==
LOC: LB.ED 12:51 → LB.MS 13:30
PROVIDERS: ADMIT Family Medicine; ATTEND Family Medicine
DX: R10.84 Generalized abdominal pain (principal); R11.2 Nausea with vomiting, unspecified; N39.0 Urinary tract infection, site not specified; R31.9 Hematuria, unspecified; D64.9 Anemia, unspecified; E86.0 Dehydration; R74.8 Abnormal levels of other serum enzymes; E87.5 Hyperkalemia; R63.0 Anorexia; K83.1 Obstruction of bile duct; C80.1 Malignant (primary) neoplasm, unspecified; C25.9 Malignant neoplasm of pancreas, unspecified; R63.4 Abnormal weight loss; Z79.899 Other long term (current) drug therapy; Z93.2 Ileostomy status
CPT/HCPCS: 36415; 80053; 81001; 82248; 82800; 83605; 83690; 85025; 96374; 99284; A0425; A0429; A9270; G0378; J3411; J3475; J7040; J3490

== ENCOUNTER 2017-04-17 15:12 | Observation (INO) | payer OTHER ==
[2017-04-17] MEDS ORDERED: Non-Formulary Medication 1 Each (Loperamide Hcl [Imodium A-D] 2 MG) PO PRN (16:50)
[2017-04-17] MEDS ORDERED: Nystatin Susp 100,000 Unit/ML 60 ML Bottle PO PRN (16:50)
[2017-04-17] MEDS ORDERED: Prochlorperazine 10 MG Tab PO PRN (16:50)
[2017-04-18] MEDS ORDERED: DULoxetine 60 MG Cap PO SCH (08:00)
[2017-04-18 08:11] VITALS: BP 123/82
--- NOTE | 2017-04-18 09:31 | PCM.DCSUM1 ---
Discharge Summary - Hospital Course Free Text/Narrative:: Pt was seen in the clinic for wound check yesterday and his Hemoglobin was low at 5.6gms. Pt was admitted for blood transfusion. I did discuss with Pt's Onco- surgeon , who agrees with blood transfusion for now, as patient is on palliative care. Pt did receive 3 units of PRBCs over night. This morning he has been feeling better, more energetic. Pt's hemoglobin today is 9gms. Pt reassured, wound dressing done today and appears clean, unchanged from yesterday. no signs of infection. Pt advised to have CBC on thursday. Followup with Primary care provider and oncologist per appointment Brief History: Pt seen in the clinic yesterday for wound check. Appeared very pale. hemoglobin was checked and was low at 5.6. Hence admitted for blood transfusion. kindly see H&P for details. - Discharge Data Discharge Date: 04/18/17 Discharge Disposition: Home, Self-Care 01 Condition: Fair - Patient Instructions Diet: Regular Diet as Tolerated Fluid Restriction: 1500 mL Activity: As Tolerated Wound/Incision Care: Keep Operative Site/Wound Site Clean and Dry, Change Dressing Daily - Discharge Plan Home Medications: Home Meds DULoxetine HCl [Duloxetine HCl] 60 mg PO DAILY 03/04/17 [History] Amoxicillin/Potassium Clav [Amox-Clav 500-125 mg Tablet] 500 mg PO BID 04/18/17 [History] Megestrol [Megace] 20 mg PO QID 04/18/17 [History] Ondansetron [Ondansetron ODT] 4 mg PO Q8HR PRN 04/18/17 [History] oxyCODONE HCl/Acetaminophen [oxyCODONE-Acetaminophen 5-325] 1 each PO TIDAC PRN 04/18/17 [History] Patient Handouts: Blood Transfusion, [id number], Anemia, Nonspecific, Incision and Drainage, Care After, Blood Transfusion, Care After, [id number], Ileostomy Home Guide - Discharge Summary/Plan Comment DC Time >30 min.: Yes Discharge Summary/Plan Comment: Pt's hemoglobin today is 9gms. Pt reassured, wound dressing done today and appears clean, unchanged from yesterday. no signs of infection. Pt advised to have CBC on thursday. Followup with Primary care provider and oncologist per appointment - General Info Date of Service: 04/18/17 Functional Status: Reports: Pain Controlled, Tolerating Diet, Ambulating, Urinating - Review of Systems General: Denies: Fever, Weakness HEENT: Denies: Sinus Congestion, Sore Throat, Visual Changes Pulmonary: Denies: Shortness of Breath, Pleuritic Chest Pain, Sputum, Hemoptysis Cardiovascular: Denies: Chest Pain, Palpitations Gastrointestinal: Denies: Abdominal Pain, Diarrhea, Nausea, Vomiting Genitourinary: Denies: Dysuria, Frequency Musculoskeletal: Denies: Joint Pain, Joint Swelling Skin: Reports: Jaundice. Denies: Pruritis, Rash Neurological: Denies: Confusion, Dizziness, Headache Psychiatric: Denies: Confusion - Patient Data Vitals - Most Recent: Last Vital Signs Temp 98.0 F 04/18/17 08:00 Pulse 99 04/18/17 08:00 Resp 12 04/18/17 04:00 BP 123/82 04/18/17 08:00 Pulse Ox 97 04/18/17 08:00 Weight - Most Recent: 55.338 kg I&O - Last 24 hours: Intake & Output 04/17/17 04/18/17 04/18/17 22:59 06:59 14:59 Intake Total 500 390 Output Total 525 Balance -25 390 Lab Results - Last 24 hrs: Laboratory Results - last 24 hr 04/17/17 04/17/17 04/18/17 Range/Units 15:26 16:15 08:10 WBC 18.5 H D 12.7 H D (4.0-11.0) K/uL RBC 1.92 L 3.06 L (4.50-6.50) M/uL Hgb 5.6 L* D 9.0 L D (13.0-18.0) g/dL Hct 18.0 L* D 26.7 L D (40.0-54.0) % MCV 94 87 (76-96) fL MCH 29.2 29.4 (27.0-32.0) pg MCHC 31.1 33.7 (31.0-35.0) g/dL RDW 17.5 H 17.5 H (11.0-16.0) % Plt Count 564 H D 265 D (150-400) K/uL MPV 9.2 9.2 (6.0-10.0) fL Neut % (Auto) 80.9 H 84.4 H (45.0-70.0) % Lymph % (Auto) 9.9 L 7.0 L (20.0-40.0) % [place] % (Auto) 8.1 7.7 (3.0-10.0) % Eos % (Auto) 0.2 L 0.2 L (1.0-5.0) % Baso % (Auto) 0.9 H 0.7 H (0.0-0.5) % Neut # (Auto) 15.00 H 10.75 H (2.00-7.50) K/uL Lymph # (Auto) 1.84 0.89 L (1.50-4.00) K/uL [place] # (Auto) 1.50 H 0.98 H (0.20-0.80) K/uL Eos # (Auto) 0.03 L 0.03 L (0.04-0.40) K/uL Baso # (Auto) 0.17 H 0.09 (0.02-0.10) K/uL Blood Type A POSITIVE Gel Antibody Screen Negative Crossmatch See Detail Med Orders - Current: Current Medications Duloxetine HCl (Cymbalta) 60 mg PO DAILY [facility] Last Admin: 04/18/17 08:07 Dose: Not Given Non-Formulary Medication (Loperamide Hcl [Imodium A-D]) 2 mg PO Q2HR PRN PRN Reason: Diarrhea Nystatin (Mycostatin) ml PO QID PRN PRN Reason: Other Prochlorperazine Maleate (Compazine) 10 mg PO QID PRN PRN Reason: Nausea - Exam General: Reports: Alert, Oriented HEENT: Reports: Pupils Equal, Pupils Reactive, EOMI, Mucous Membr. Moist/[place], Scleral Icterus Neck: Reports: Supple Lungs: Reports: Clear to Auscultation, Normal Respiratory Effort Cardiovascular: Reports: Regular Rate, Regular Rhythm GI/Abdominal Exam: Normal Bowel Sounds, Soft, No Distention, Other (ostomy still draining coffee coloured fecal matter. The mucus fistula is clean. The surgical wound is not infected, unchanged from yesterday. Sterile wound dressing done.) Back Exam: Reports: Normal Inspection, Full Range of Motion Skin: Reports: Warm, Intact Wound/Incisions: Reports: Healing Well Neurological: Reports: No New Focal Deficit Psy/Mental Status: Reports: Alert, Normal Affect, Normal Mood *Q Meaningful Use (DIS) - VTE *Q VTE Criteria *Q: - Stroke *Q Stroke Criteria *Q: - AMI *Q AMI Criteria *Q:
== END 2017-04-18 10:40 | disposition home or self-care (01) ==
LOC: LB.CLINIC 15:12 → UNDOADMOB 16:13 → LB.MS 16:13
PROVIDERS: ADMIT Family Medicine; ATTEND Family Medicine
DX: D64.9 Anemia, unspecified (principal); C25.9 Malignant neoplasm of pancreas, unspecified; Z79.899 Other long term (current) drug therapy
CPT/HCPCS: 36415; 36430; 85025; 86850; 86900; 86901; 86920; 86922; 87040; P9016

== ENCOUNTER 2017-05-27 10:06 | Inpatient (IN) | payer OTHER ==
--- NOTE | 2017-05-27 12:14 | EDM.PDOC ---
ED HPI GENERAL MEDICAL PROBLEM - General Chief Complaint: General Time Seen by Provider: 05/27/17 11:00 Source of Information: Reports: Patient History Limitations: Reports: No Limitations - History of Present Illness INITIAL COMMENTS - FREE TEXT/NARRATIVE: Pt is 56 year/male with end stage Adenocarcinoma of the pancreas on palliative care. Apparently pt was on oxycodone and 24Mcg of fentanyl patch for pain. Pt's did meet here in the clinic on Thrusday(05/20/17 )as patient's pain was not controlled. The fentanyl patch was increased to 37mcg and advised to continue oxycodone for breath through pain. Over the week end. His pain was not controlled and Family called Oncologist in [facility] on 05/21/17 and the fentanyl was increased to 75mcg and also darobinal was added for pain and appetite stimulant. Pt is her in the emergency room as he has not urinated for past 24 hrs and has abdominal distension, and also very drowsy. Patient claims pain is controlled. Family claims he is confused at times since the pain medication dose has been increased. Has been feeding and drinking, but not well. No nausea or vomiting. has been having stool drained in the ostomy. No fever or chills. Does feel tired and weak. Quality: Reports: Ache Severity: Moderate Associated Symptoms: Reports: Confusion, Loss of Appetite, Weakness. Denies: Chest Pain, Cough, Diaphoresis, Fever/Chills, Headaches, Nausea/Vomiting, Seizure, Shortness of Breath, Syncope Lower Abdomen Pain Score (Numeric/FACES): 6 - Related Data Allergies Allergy/AdvReac Type Severity Reaction Status Date / Time No Known Allergies Allergy Verified 05/27/17 11:00 Home Meds: Home Meds DULoxetine HCl [Duloxetine HCl] 30 mg PO BID 03/04/17 [History] Megestrol [Megace] 20 mg PO QID 04/18/17 [History] Ondansetron [Ondansetron ODT] 4 mg PO Q8HR PRN 04/18/17 [History] Cyclobenzaprine HCl [Cyclobenzaprine HCl] 10 mg PO QPM 05/27/17 [History] Dronabinol [Dronabinol] 5 mg PO TID PRN 05/27/17 [History] Zolpidem Tartrate [Zolpidem Tartrate] 10 mg PO QPM 05/27/17 [History] fentaNYL [Duragesic] 50 mcg TRDERM Q72H 05/27/17 [History] oxyCODONE 15 mg PO Q4H PRN 05/27/17 [History] Past Medical History - Past Health History Medical/Surgical History: Denies Medical/Surgical History Respiratory History: Reports: PE Other Respiratory History: 2 PE left side diagnosed Thursday at [facility] 100 % receiving lovenox 60mg bid Gastrointestinal History: Reports: Bowel Obstruction, Jaundice Oncologic (Cancer) History: Reports: Pancreatic, Other (See Below) Other Oncologic History: Hx Pancreatic Adenocarcinoma, will restart chemo - Past Surgical History Respiratory Surgical History: Reports: None GI Surgical History: Reports: Other (See Below) Other GI Surgeries/Procedures: Ileostomy March 2017 Oncologic Surgical History: Reports: None Social & Family History - Family History Family Medical History: Noncontributory - Tobacco Use Smoking Status *Q: Never Smoker Second Hand Smoke Exposure: No - Caffeine Use Caffeine Use: Reports: None - Recreational Drug Use Recreational Drug Use: No ED ROS GENERAL - Review of Systems Review Of Systems: See Below Constitutional: Reports: Weakness, Fatigue, Decreased Appetite. Denies: Fever, Chills, Diaphoresis HEENT: Denies: Rhinitis, Throat Pain, Throat Swelling Respiratory: Denies: Shortness of Breath, Pleuritic Chest Pain, Cough, Sputum Cardiovascular: Denies: Chest Pain, Lightheadedness GI/Abdominal: Reports: Distension. Denies: Abdominal Pain, Nausea, Vomiting : Reports: Urinary Retention. Denies: Discharge, Dysuria Musculoskeletal: Denies: Joint Pain, Joint Swelling Skin: Reports: Jaundice. Denies: Pruritis, Rash ED EXAM, GENERAL - Physical Exam Exam: See Below General Appearance: Alert, WD/WN, No Apparent Distress, Cachetic, Other (He does appear severely icteric. Pt is drowsy, but arousable and respond approriately to questions) Eye Exam: Bilateral Eye: Conjunctival Injection (Icterus of conjuctiva) Ears: Normal External Exam, Normal Canal, Hearing Grossly Normal, Normal TMs Nose: Normal Inspection, Normal Mucosa, No Blood Throat/Mouth: Normal Inspection, Normal Lips, Normal Teeth, Normal Gums, Normal Oropharynx, Normal Voice, No Airway Compromise Head: Atraumatic, Normocephalic Neck: Normal Inspection, Supple, Non-Tender, Full Range of Motion Respiratory/Chest: No Respiratory Distress, Lungs Clear, Normal Breath Sounds, No Accessory Muscle Use, Chest Non-Tender Cardiovascular: Normal Peripheral Pulses, No Edema, No Gallop, No JVD, No Murmur , No Rub, Tachycardia Peripheral Pulses: 2+: Radial (L), Radial (R) GI/Abdominal: Distended, Tender, Other (There is distension of the bladder and bladder scan does show 600ml urine in the bladder). No: Guarding (Periumbilical ), Rigid, Rebound Extremities: Pedal Edema (2+ pitting) Neurological: Alert, Oriented Psychiatric: Normal Affect, Normal Mood Skin Exam: Warm, Jaundice Course - Vital Signs Text/Narrative:: It does appear like the sudden increase in the fentanyl patch might be the cause of his drowsiness, confusion and weakness. Also his LFT shows bilirubin of 19 with altered LFTs.which appears like obstructive hepatitis. ALso his sodium is low at 126 and potassium is low, which could be due to poor orally intake. Pt is still feeding, but not well. Also he has acute urinary retention could be related to narcotic use. HE was catheterized and did drain about 700CC dark colored urine, secondary to urobilinogen.Pt's CBC is stable, with elevated leucocytes, probably reactive in nature. Plan is to admit patient for electrolyte correction and also will try to decrease his fentanyl form 75mcg to 50mcg and see , if he get more alert. Plan is to adjust pain meds until patient has good pain control and also at the same time maintain normal sensorium. Again to get good pain control, the meds might need to be increased to a level where patient might have difficulty with concentration or alertness Last Recorded V/S: Last Vital Signs Temp 97.4 F 05/27/17 11:33 Pulse 121 H 05/27/17 11:33 Resp 20 05/27/17 11:33 BP 120/80 05/27/17 10:55 Pulse Ox 94 L 05/27/17 11:33 - Orders/Labs/Meds Orders: Active Orders 24 hr Category Date Time Status [place]a Catheter Insertion [Insert Urinary Catheter] [OM. Care 05/27/17 11:30 Ordered PC] Q24H Urinary Catheter Assessment [RC] ASDIRECTED Care 05/27/17 11:25 Active Sodium Chloride 0.9% [Normal Saline] 1,000 ml Med 05/27/17 12:45 Active IV ASDIRECTED fentaNYL [Duragesic] Med 05/27/17 12:45 Active 50 mcg TRDERM Q72H Medication Orders Fentanyl (Duragesic) 50 mcg TRDERM Q72H [facility] Last Admin: 05/27/17 13:07 Dose: 50 mcg Sodium Chloride (Normal Saline) 1,000 mls @ 75 mls/hr IV ASDIRECTED [facility] Labs: Laboratory Tests 05/27/17 05/27/17 05/27/17 Range/Units 11:33 11:33 11:54 WBC 19.0 H D (4.0-11.0) K/uL RBC 3.56 L (4.50-6.50) M/uL Hgb 9.2 L (13.0-18.0) g/dL Hct 28.1 L (40.0-54.0) % MCV 79 (76-96) fL MCH 25.8 L (27.0-32.0) pg MCHC 32.7 (31.0-35.0) g/dL RDW 18.5 H (11.0-16.0) % Plt Count 197 (150-400) K/uL MPV 10.1 H (6.0-10.0) fL Neut % (Auto) 81.5 H (45.0-70.0) % Lymph % (Auto) 4.1 L (20.0-40.0) % [place] % (Auto) 13.9 H (3.0-10.0) % Eos % (Auto) 0.3 L (1.0-5.0) % Baso % (Auto) 0.2 (0.0-0.5) % Neut # (Auto) 15.44 H (2.00-7.50) K/uL Lymph # (Auto) 0.78 L (1.50-4.00) K/uL [place] # (Auto) 2.63 H (0.20-0.80) K/uL Eos # (Auto) 0.06 (0.04-0.40) K/uL Baso # (Auto) 0.04 (0.02-0.10) K/uL Sodium 126 L (136-145) mmol/L Potassium 3.3 L (3.5-5.1) mmol/L Chloride 89 L* (98-107) mmol/L Carbon Dioxide 27.2 (21.0-32.0) mmol/L Anion Gap 13.1 (5.0-15.0) mmol/L BUN 13 D (8-26) mg/dL Creatinine 0.54 L D (0.70-1.30) mg/dL Est Cr Clr Drug Dosing TNP Estimated GFR (MDRD) > 60 (>60) MLS/MIN BUN/Creatinine Ratio 24.1 (6-25) Glucose 129 H (74-100) mg/dL Calcium 8.9 (8.5-10.1) mg/dL Total Bilirubin 18.3 H D (0.0-1.0) mg/dL AST 100 H (15-37) U/L ALT 79 H (12-78) U/L Alkaline Phosphatase 1397 H (46-116) U/L Total Protein 5.5 L (6.4-8.2) g/dL Albumin 2.0 L (3.4-5.0) g/dL Globulin 3.5 (2.2-4.2) g/dL Albumin/Globulin Ratio 0.6 L (0.8-2.0) Urine Color Urine Appearance Slightly cloudy (CLEAR) Urine pH 5.5 (5.0-8.0) Ur Specific [place] 1.025 (1.003-1.030) Urine Protein 30 H (NEGATIVE) mg/dL Urine Glucose (UA) 100 H (NEGATIVE) mg/dL Urine Ketones Negative (NEGATIVE) mg/dL Urine Occult Blood Negative (NEGATIVE) Urine Nitrite Negative (NEGATIVE) Urine Bilirubin Large H (NEGATIVE) Urine Urobilinogen 1.0 (0.2-1.0) E.U./dL Ur Leukocyte Esterase Negative (NEGATIVE) Urine RBC Not seen /HPF Urine WBC 0-5 H /HPF Ur Epithelial Cells Moderate /HPF Epithelial Casts Moderate H /HPF Hyaline Casts Few /HPF Fine Granular Casts Few H /HPF Meds: Medications Generic Name Dose Route Start Last Admin Trade Name Freq PRN Reason Stop Dose Admin Fentanyl 50 mcg 05/27/17 12:45 05/27/17 13:07 Duragesic TRDERM 50 mcg Q72H SELIN Administration Sodium Chloride 1,000 mls @ 75 mls/hr 05/27/17 12:45 Normal Saline IV ASDIRECTED SELIN Departure - Departure Time of Disposition: 13:30 Disposition: Admitted As Inpatient 66 Condition: Fair Clinical Impression: Pain management, Hyponatremia, Hypokalemia - Discharge Information Referrals: PCP,None [Primary Care Provider] - Forms: ED Department Discharge - Problem List & Annotations (1) Hypokalemia SNOMED Code(s): 03204855 Code(s): E87.6 - HYPOKALEMIA Status: Acute Current Visit: Yes (2) Hyponatremia SNOMED Code(s): 09780616 Code(s): E87.1 - HYPO-OSMOLALITY AND HYPONATREMIA Status: Acute Current Visit: Yes (3) Pain management SNOMED Code(s): 988581320, 760935422 Code(s): R52 - PAIN, UNSPECIFIED Status: Acute Current Visit: Yes - Problem List Review Problem List Initiated/Reviewed/Updated: Yes - My Orders Last 24 Hours: My Active Orders 05/27/17 11:25 Urinary Catheter Assessment [RC] ASDIRECTED 05/27/17 11:30 Mora Catheter Insertion [Insert Urinary Catheter] [OM.PC] Q24H 05/27/17 12:45 Sodium Chloride 0.9% [Normal Saline] 1,000 ml IV ASDIRECTED fentaNYL [Duragesic] 50 mcg TRDERM Q72H - Assessment/Plan Admission H&P: Please use this note as an admission H&P Last 24 Hours: My Active Orders 05/27/17 11:25 Urinary Catheter Assessment [RC] ASDIRECTED 05/27/17 11:30 [place]a Catheter Insertion [Insert Urinary Catheter] [OM.PC] Q24H 05/27/17 12:45 Sodium Chloride 0.9% [Normal Saline] 1,000 ml IV ASDIRECTED fentaNYL [Duragesic] 50 mcg TRDERM Q72H Assessment:: Adenocarcinoma of pancreas end stage for pain management Hyponatremia Hypokalemia Plan: It does appear like the sudden increase in the fentanyl patch might be the cause of his drowsiness, confusion and weakness. Also his LFT shows bilirubin of 19 with altered LFTs.which appears like obstructive hepatitis. ALso his sodium is low at 126 and potassium is low, which could be due to poor orally intake. Pt is still feeding, but not well. Also he has acute urinary retention could be related to narcotic use. HE was catheterized and did drain about 700CC dark colored urine, secondary to urobilinogen.Pt's CBC is stable, with elevated leucocytes, probably reactive in nature. Plan is to admit patient for electrolyte correction and also will try to decrease his fentanyl form 75mcg to 50mcg and see , if he get more alert. Plan is to adjust pain meds until patient has good pain control and also at the same time maintain normal sensorium. Again to get good pain control, the meds might need to be increased to a level where patient might have difficulty with concentration or alertness. Will closely monitor patient, get good pain control and correct the electrolyte.
[2017-05-27] MEDS ORDERED: Sodium Chloride 0.9% 1,000 ML IV SCH (12:45)
[2017-05-27] MEDS: fentaNYL 50 MCG/HR Transdermal Patch TRDERM SCH (13:07)
[2017-05-27] MEDS ORDERED: oxyCODONE 5 MG Tab ONE (13:29)
[2017-05-27] MEDS: oxyCODONE 5 MG Tab PO PRN ×2 (13:30→19:59)
[2017-05-27] MEDS ORDERED: ONDANSETRON 4 MG PO PRN (13:47)
[2017-05-27] MEDS ORDERED: DRONABINOL 5 MG PO PRN (13:47)
[2017-05-27] MEDS ORDERED: fentaNYL 50 MCG/HR Transdermal Patch TRDERM SCH (14:00)
[2017-05-27] MEDS ORDERED: Ondansetron 4 MG Tab.DIS PO SCH (14:15)
[2017-05-27] MEDS ORDERED: Ondansetron 4 MG Tab.DIS PO PRN (14:15)
[2017-05-27] MEDS ORDERED: Premix Bag 1 BAG ONE (14:39)
[2017-05-27] MEDS ORDERED: Dextrose 5%-0.9% NaCl with KCl 1,000 ML ONE (14:40)
[2017-05-27] MEDS: NS + KCl 20mEq/L 1,000 ML IV SCH (14:40)
[2017-05-27] MEDS ORDERED: MEGESTROL 20 MG PO SCH (16:00)
[2017-05-27] MEDS: DRONABINOL 5 MG PO SCH (17:13)
[2017-05-27] MEDS: DULoxetine 30 MG Cap PO SCH (19:58)
[2017-05-27] MEDS: Cyclobenzaprine 10 MG Tab PO SCH (19:58)
[2017-05-27] MEDS ORDERED: ZOLPIDEM TARTRATE 10 MG PO SCH (20:00)
[2017-05-27] MEDS: Zolpidem 5 MG Tab PO SCH (20:10)
[2017-05-28] MEDS: oxyCODONE 5 MG Tab PO PRN ×3 (02:19→11:01)
[2017-05-28] MEDS: NS + KCl 20mEq/L 1,000 ML IV SCH ×2 (03:50→17:14)
[2017-05-28] MEDS: DRONABINOL 5 MG PO SCH ×3 (07:04→17:16)
[2017-05-28] MEDS: DULoxetine 30 MG Cap PO SCH ×2 (07:40→20:08)
--- NOTE | 2017-05-28 08:45 | PCM.PN ---
- General Info Date of Service: 05/28/17 Subjective Update: Pt is feeling better. HE claims his pain is well controlled on Fentanyl 50mcg. Does not appear or feel groggy. Answering question appropriately. appetite seems to be improving. No abdominal pain. Ostomy draining well. Functional Status: Reports: Tolerating Diet, Urinating - Review of Systems General: Reports: Weakness. Denies: Fever, Chills, Appetite HEENT: Denies: Sinus Congestion, Sore Throat Pulmonary: Denies: Shortness of Breath, Sputum, Hemoptysis Cardiovascular: Denies: Chest Pain, Lightheadedness Gastrointestinal: Reports: Abdominal Pain. Denies: Nausea, Vomiting Genitourinary: Denies: Dysuria, Frequency Musculoskeletal: Denies: Joint Pain, Joint Swelling Skin: Reports: Jaundice. Denies: Pruritis, Rash Neurological: Denies: Dizziness, Headache - Patient Data Vitals - Most Recent: Last Vital Signs Temp 97.8 F 05/28/17 02:33 Pulse 120 H 05/28/17 02:33 Resp 20 05/28/17 02:33 BP 110/79 05/28/17 02:33 Pulse Ox 92 L 05/28/17 02:33 Weight - Most Recent: 55.338 kg I&O - Last 24 Hours: Intake & Output 05/27/17 05/28/17 05/28/17 22:59 06:59 14:59 Intake Total 580 1307 Output Total 150 250 Balance 430 1057 Lab Results Last 24 Hours: Laboratory Results - last 24 hr 05/28/17 Range/Units 07:30 Sodium 125 L (136-145) mmol/L Potassium 3.5 (3.5-5.1) mmol/L Chloride 91 L (98-107) mmol/L Carbon Dioxide 25.1 (21.0-32.0) mmol/L Anion Gap 12.4 (5.0-15.0) mmol/L BUN 9 D (8-26) mg/dL Creatinine 0.42 L D (0.70-1.30) mg/dL Est Cr Clr Drug Dosing TNP Estimated GFR (MDRD) > 60 (>60) MLS/MIN BUN/Creatinine Ratio 21.4 (6-25) Glucose 112 H (74-100) mg/dL Calcium 8.5 (8.5-10.1) mg/dL Med Orders - Current: Current Medications Cyclobenzaprine HCl (Flexeril) 10 mg PO QPM [facility] Last Admin: 05/27/17 19:58 Dose: 10 mg Duloxetine HCl (Cymbalta) 30 mg PO BID [facility] Last Admin: 05/28/17 07:40 Dose: 30 mg Fentanyl (Duragesic) 50 mcg TRDERM Q72H [facility] Last Admin: 05/27/17 13:07 Dose: 50 mcg Potassium Chloride/Sodium Chloride (Normal Saline With 20 Meq Kcl) 1,000 mls @ 75 mls/hr IV ASDIRECTED [facility] Last Admin: 05/28/17 03:50 Dose: 75 mls/hr Non-Formulary Medication (Megestrol [Megace]) 20 mg PO QID [facility] (Dronabinol [ (Dronabinol] 5 Mg)) 5 mg PO DAILY@0700,1100,1600 [facility] Last Admin: 05/28/17 07:04 Dose: 5 mg Ondansetron HCl (Zofran Odt) 4 mg PO Q8H PRN PRN Reason: NAUSEA Oxycodone HCl (Oxycodone) 15 mg PO Q4H PRN PRN Reason: MODERATE PAIN Last Admin: 05/28/17 07:03 Dose: 15 mg Zolpidem Tartrate (Ambien) 10 mg PO BEDTIME [facility] Last Admin: 05/27/17 20:10 Dose: 10 mg Discontinued Medications Fentanyl (Duragesic) 50 mcg TRDERM Q72H [facility] Last Admin: 05/27/17 15:12 Dose: Not Given Premix (Premix Bag) Confirm Administered Dose 1 mls @ as directed .ROUTE .STK- MED ONE Stop: 05/27/17 14:40 Last Admin: 05/27/17 17:11 Dose: Not Given Potassium Chloride/Dextrose/Sod Cl (D5 Ns With 20 Meq Kcl) Confirm Administered Dose 1,000 mls @ as directed .ROUTE .STK-MED ONE Stop: 05/27/17 14:41 Last Admin: 05/27/17 17:10 Dose: Not Given Dronabinol [ Dronabinol] 5 Mg Capsule 5 mg PO TID PRN PRN Reason: NAUSEA AND VOMITING Non-Formulary Medication (Zolpidem Tartrate [Zolpidem Tartrate]) 10 mg PO QPM [facility] Ondansetron HCl (Zofran Odt) 4 mg PO Q8H [facility] Oxycodone HCl (Oxycodone) Confirm Administered Dose 15 mg .ROUTE .STK-MED ONE Stop: 05/27/17 13:30 Last Admin: 05/27/17 17:11 Dose: Not Given - Exam Quality Assessment: Urine Catheter General: Alert, Oriented, Other (Icterus) HEENT: Pupils Equal Neck: Supple Lungs: Clear to Auscultation, Normal Respiratory Effort Cardiovascular: Regular Rhythm, Tachycardia GI/Abdominal Exam: Normal Bowel Sounds, Other (Ilieostom draining normal liquid stool) Extremities: Normal Inspection, Normal Range of Motion, Pedal Edema Skin: Warm, Intact, Other (icterus of skin) - Problem List & Annotations (1) Hypokalemia SNOMED Code(s): 25121398 Code(s): E87.6 - HYPOKALEMIA Status: Acute Current Visit: Yes (2) Hyponatremia SNOMED Code(s): 62594797 Code(s): E87.1 - HYPO-OSMOLALITY AND HYPONATREMIA Status: Acute Current Visit: Yes (3) Pain management SNOMED Code(s): 403569169, 218769619 Code(s): R52 - PAIN, UNSPECIFIED Status: Acute Current Visit: Yes - Problem List Review Problem List Initiated/Reviewed/Updated: Yes - My Orders Last 24 Hours: My Active Orders 05/27/17 13:40 NS + KCl 20mEq/L [Normal Saline with 20 mEq KCl] 1,000 ml IV ASDIRECTED 05/27/17 14:05 oxyCODONE 15 mg PO Q4H PRN 05/27/17 14:15 Ondansetron [Zofran ODT] 4 mg PO Q8H PRN 05/27/17 16:00 Dronabinol [Dronabinol] 5 mg PO DAILY@0700,1100,1600 Megestrol [Megace] 20 mg PO QID 05/27/17 17:09 CULTURE MRSA SURVEY [RM] Routine 05/27/17 20:00 Cyclobenzaprine [Flexeril] 10 mg PO QPM DULoxetine [Cymbalta] 30 mg PO BID Zolpidem [Ambien] 10 mg PO BEDTIME - Assessment Assessment:: Hyponatremia persisting Hypokalemia resolved Pain management - Plan Plan:: Pt's sodium is 125, his BUN is 9 and creat is 0.4. he appears well hydrated. His hypokalmeia might be inefficient absorption of sodium from his ileostomy. I have decreased his IV fluids to 50 cc/hr. Pt's potassium today is 3.5. Improved hypokalemia. Also on 50 MCG fentanyl patch patient has been doing better.Pain controlled. More alert and wake. Will continue on present regime. Will repeat BMP in Am.
[2017-05-28] MEDS ORDERED: Morphine PF 150 MG/30 ML PCA Syringe ONE (15:12)
[2017-05-28] MEDS: Morphine PF 150 MG/30 ML PCA Syringe IV SCH (15:51)
[2017-05-28] MEDS: Zolpidem 5 MG Tab PO SCH (20:08)
[2017-05-28] MEDS: Cyclobenzaprine 10 MG Tab PO SCH (20:08)
[2017-05-29] MEDS: DRONABINOL 5 MG PO SCH ×3 (11:19→17:33)
[2017-05-29] MEDS: DULoxetine 30 MG Cap PO SCH ×2 (11:19→19:55)
--- NOTE | 2017-05-29 11:58 | PCM.PN ---
- General Info Date of Service: 05/29/17 Subjective Update: Pt is sleeping, but arousable. Claims he is feeling fine. Family is concerned that he has been sleeping a lot now and is confused at time. He is still on the fentanyl patch 50MCG. He has been started on Morphine [employer] AGENT for better pain control. As he gets sudden sharp pain, and oxycodone oral has not been helping with acute pains in the abdomen. Pt feels [employer] AGENT is helping. Has been urinating well. Has been feeding but not well. Functional Status: Reports: Tolerating Diet, Urinating - Review of Systems General: Reports: Weakness. Denies: Fever HEENT: Denies: Headaches, Sinus Congestion, Sore Throat Pulmonary: Denies: Shortness of Breath, Cough, Sputum Cardiovascular: Denies: Chest Pain, Lightheadedness Gastrointestinal: Reports: Abdominal Pain. Denies: Nausea, Vomiting Musculoskeletal: Denies: Joint Pain, Joint Swelling Skin: Denies: Pruritis, Rash Neurological: Reports: Weakness. Denies: Confusion, Dizziness, Headache - Patient Data Vitals - Most Recent: Last Vital Signs Temp 97.2 F 05/29/17 04:00 Pulse 122 H 05/29/17 04:00 Resp 18 05/29/17 04:00 BP 116/77 05/29/17 04:00 Pulse Ox 88 L 05/29/17 04:00 Weight - Most Recent: 55.338 kg I&O - Last 24 Hours: Intake & Output 05/28/17 05/29/17 05/29/17 22:59 06:59 14:59 Intake Total 1150 100 Output Total 300 250 Balance 850 -150 Lab Results Last 24 Hours: Laboratory Results - last 24 hr 05/29/17 Range/Units 10:00 Sodium 127 L (136-145) mmol/L Potassium 4.0 (3.5-5.1) mmol/L Chloride 93 L (98-107) mmol/L Carbon Dioxide 23.9 (21.0-32.0) mmol/L Anion Gap 14.1 (5.0-15.0) mmol/L BUN 8 (8-26) mg/dL Creatinine 0.46 L (0.70-1.30) mg/dL Est Cr Clr Drug Dosing TNP Estimated GFR (MDRD) > 60 (>60) MLS/MIN BUN/Creatinine Ratio 17.4 (6-25) Glucose 114 H (74-100) mg/dL Calcium 8.6 (8.5-10.1) mg/dL Senthil Results Last 24 Hours: Microbiology 05/27/17 17:09 MRSA Surveillance Culture - Final Nasal, Unspecified NO MRSA ISOLATED Med Orders - Current: Current Medications Cyclobenzaprine HCl (Flexeril) 10 mg PO QPM [facility] Last Admin: 05/28/17 20:08 Dose: 10 mg Duloxetine HCl (Cymbalta) 30 mg PO BID [facility] Last Admin: 05/29/17 11:19 Dose: 30 mg Fentanyl (Duragesic) 50 mcg TRDERM Q72H [facility] Last Admin: 05/27/17 13:07 Dose: 50 mcg Potassium Chloride/Sodium Chloride (Normal Saline With 20 Meq Kcl) 1,000 mls @ 50 mls/hr IV ASDIRECTED [facility] Last Admin: 05/28/17 17:14 Dose: 50 mls/hr Morphine Sulfate (Morphine Lab Asst 150 Mg In 30 Ml) 0 mg IV TITRATE [facility] PRN Reason: Protocol Last Admin: 05/28/17 15:51 Dose: 150 mg Non-Formulary Medication (Megestrol [Megace]) 20 mg PO QID [facility] (Dronabinol [ (Dronabinol] 5 Mg)) 5 mg PO DAILY@0700,1100,1600 [facility] Last Admin: 05/29/17 11:19 Dose: 5 mg Ondansetron HCl (Zofran Odt) 4 mg PO Q8H PRN PRN Reason: NAUSEA Zolpidem Tartrate (Ambien) 10 mg PO BEDTIME [facility] Last Admin: 05/28/17 20:08 Dose: 10 mg Discontinued Medications Fentanyl (Duragesic) 50 mcg TRDERM Q72H [facility] Last Admin: 05/27/17 15:12 Dose: Not Given Premix (Premix Bag) Confirm Administered Dose 1 mls @ as directed .ROUTE .STK- MED ONE Stop: 05/27/17 14:40 Last Admin: 05/27/17 17:11 Dose: Not Given Potassium Chloride/Dextrose/Sod Cl (D5 Ns With 20 Meq Kcl) Confirm Administered Dose 1,000 mls @ as directed .ROUTE .STK-MED ONE Stop: 05/27/17 14:41 Last Admin: 05/27/17 17:10 Dose: Not Given Morphine Sulfate (Morphine Lab Asst 150 Mg In 30 Ml) Confirm Administered Dose 150 mg .ROUTE .Integrien-MED ONE Stop: 05/28/17 15:13 Last Admin: 05/28/17 15:37 Dose: Not Given Dronabinol [ Dronabinol] 5 Mg Capsule 5 mg PO TID PRN PRN Reason: NAUSEA AND VOMITING Non-Formulary Medication (Zolpidem Tartrate [Zolpidem Tartrate]) 10 mg PO QPM [facility] Ondansetron HCl (Zofran Odt) 4 mg PO Q8H [facility] Oxycodone HCl (Oxycodone) Confirm Administered Dose 15 mg .ROUTE .Integrien-MED ONE Stop: 05/27/17 13:30 Last Admin: 05/27/17 17:11 Dose: Not Given Oxycodone HCl (Oxycodone) 15 mg PO Q4H PRN PRN Reason: MODERATE PAIN Last Admin: 05/28/17 11:01 Dose: 15 mg - Exam General: Alert, Oriented HEENT: Pupils Equal, Pupils Reactive, EOMI, Mucous Membr. Moist/[place] Neck: Supple Lungs: Clear to Auscultation, Normal Respiratory Effort Cardiovascular: Regular Rate, Regular Rhythm GI/Abdominal Exam: Normal Bowel Sounds, Soft, Non-Tender, No Organomegaly, No Distention, No Abnormal Bruit, No Mass, Pelvis Stable (Male) Exam: No Hernia, Normal Inspection, Normal Prostate, Circumcised Back Exam: Normal Inspection, Full Range of Motion Extremities: Normal Inspection, Normal Range of Motion, Non-Tender, No Pedal Edema, Normal Capillary Refill Skin: Warm, Intact Psy/Mental Status: Alert, Normal Mood - Problem List & Annotations (1) Hypokalemia SNOMED Code(s): 46170029 Code(s): E87.6 - HYPOKALEMIA Status: Acute Current Visit: Yes (2) Hyponatremia SNOMED Code(s): 07063495 Code(s): E87.1 - HYPO-OSMOLALITY AND HYPONATREMIA Status: Acute Current Visit: Yes (3) Pain management SNOMED Code(s): 632900135, 989593455 Code(s): R52 - PAIN, UNSPECIFIED Status: Acute Current Visit: Yes - Problem List Review Problem List Initiated/Reviewed/Updated: Yes - My Orders Last 24 Hours: My Active Orders 05/28/17 15:15 Morphine PF [Morphine [employer]ENT 150 MG in 30 ML] See Protocol IV TITRATE - Assessment Assessment:: Comfort care Pain management - Plan Plan:: Pt's sodium is 125, his BUN is 9 and creat is 0.4. he appears well hydrated. His hypokalmeia might be inefficient absorption of sodium from his ileostomy. I have decreased his IV fluids to 50 cc/hr. Pt's potassium today is 3.5. Improved hypokalemia. Also on 50 MCG fentanyl patch patient has been doing better.Pain controlled. More alert and wake. Will continue on present regime. Will repeat BMP in Am. 05/29/17 HAve removed the fentanyl patch and have kept him on [employer]ENT due to him being very groggy and fentanyl being long acting can make patient drowsy. I have changed the [employer]ENT protocol to keep his pain under control. At this point pt does not seem to be improving. Family does understand. Will keep him on comfort care.
[2017-05-29] MEDS: NS + KCl 20mEq/L 1,000 ML IV SCH (13:57)
[2017-05-29] MEDS: Megestrol Susp 40 MG/ML ML (240 ML Bottle) PO SCH ×2 (17:32→20:00)
[2017-05-29] MEDS: Zolpidem 5 MG Tab PO SCH (19:55)
[2017-05-29] MEDS: Cyclobenzaprine 10 MG Tab PO SCH (19:56)
[2017-05-30] MEDS: DULoxetine 30 MG Cap PO SCH ×2 (09:33→20:06)
[2017-05-30] MEDS: DRONABINOL 5 MG PO SCH ×2 (09:33→19:26)
[2017-05-30] MEDS: Megestrol Susp 40 MG/ML ML (240 ML Bottle) PO SCH ×4 (09:34→20:06)
[2017-05-30] MEDS: NS + KCl 20mEq/L 1,000 ML IV SCH (09:54)
[2017-05-30 11:39] VITALS: BP 101/65
--- NOTE | 2017-05-30 13:16 | PCM.PN ---
- General Info Subjective Update: Pt's is arousable to verbal commands but very tired and sleepy. He claims he is not in any pain. No hyperventilation or any discomfort. Still has Urine in the urobag. Has not been eating much, but sips of fluids when awake. On TRAVEL MANAGER for pain. Pain well controlled. Functional Status: Reports: Pain Controlled - Review of Systems General: Reports: Weakness, Fatigue, Malaise. Denies: Fever, Chills HEENT: Denies: Sinus Congestion, Rhinitis Pulmonary: Denies: Shortness of Breath, Pleuritic Chest Pain, Sputum Cardiovascular: Denies: Chest Pain, Edema, Lightheadedness Gastrointestinal: Denies: Abdominal Pain, Nausea, Vomiting Musculoskeletal: Denies: Joint Pain, Joint Swelling Skin: Reports: Jaundice. Denies: Bruising, Pruritis, Rash Neurological: Reports: Confusion, Weakness. Denies: Dizziness, Headache, Numbness, Tingling - Patient Data Vitals - Most Recent: Last Vital Signs Temp 98.9 F 05/30/17 10:00 Pulse 115 H 05/30/17 10:00 Resp 28 H 05/30/17 10:00 BP 101/65 05/30/17 10:00 Pulse Ox 94 L 05/30/17 10:00 Weight - Most Recent: 55.338 kg I&O - Last 24 Hours: Intake & Output 05/29/17 05/30/17 05/30/17 22:59 06:59 14:59 Intake Total 1229 700 Output Total 300 Balance 929 700 Med Orders - Current: Current Medications Cyclobenzaprine HCl (Flexeril) 10 mg PO QPM [facility] Last Admin: 05/29/17 19:56 Dose: 10 mg Duloxetine HCl (Cymbalta) 30 mg PO BID [facility] Last Admin: 05/30/17 09:33 Dose: 30 mg Fentanyl (Duragesic) 50 mcg TRDERM Q72H [facility] Last Admin: 05/27/17 13:07 Dose: 50 mcg Potassium Chloride/Sodium Chloride (Normal Saline With 20 Meq Kcl) 1,000 mls @ 50 mls/hr IV ASDIRECTED [facility] Last Admin: 05/30/17 09:54 Dose: 50 mls/hr Megestrol Acetate (Megace 40 Mg/Ml Susp) 20 mg PO QID [facility] Last Admin: 05/30/17 09:34 Dose: Not Given Morphine Sulfate (Morphine [employer]ant 150 Mg In 30 Ml) 0 mg IV TITRATE [facility] PRN Reason: Protocol Last Admin: 05/28/17 15:51 Dose: 150 mg (Dronabinol [ (Dronabinol] 5 Mg)) 5 mg PO DAILY@0700,1100,1600 [facility] Last Admin: 05/30/17 09:33 Dose: 5 mg Ondansetron HCl (Zofran Odt) 4 mg PO Q8H PRN PRN Reason: NAUSEA Zolpidem Tartrate (Ambien) 10 mg PO BEDTIME [facility] Last Admin: 05/29/17 19:55 Dose: 10 mg Discontinued Medications Fentanyl (Duragesic) 50 mcg TRDERM Q72H [facility] Last Admin: 05/27/17 15:12 Dose: Not Given Premix (Premix Bag) Confirm Administered Dose 1 mls @ as directed .ROUTE .STK- MED ONE Stop: 05/27/17 14:40 Last Admin: 05/27/17 17:11 Dose: Not Given Potassium Chloride/Dextrose/Sod Cl (D5 Ns With 20 Meq Kcl) Confirm Administered Dose 1,000 mls @ as directed .ROUTE .STK-MED ONE Stop: 05/27/17 14:41 Last Admin: 05/27/17 17:10 Dose: Not Given Morphine Sulfate (Morphine [employer] Project Accountant 150 Mg In 30 Ml) Confirm Administered Dose 150 mg .ROUTE .STK-MED ONE Stop: 05/28/17 15:13 Last Admin: 05/28/17 15:37 Dose: Not Given Dronabinol [ Dronabinol] 5 Mg Capsule 5 mg PO TID PRN PRN Reason: NAUSEA AND VOMITING Non-Formulary Medication (Megestrol [Megace]) 20 mg PO QID [facility] Non-Formulary Medication (Zolpidem Tartrate [Zolpidem Tartrate]) 10 mg PO QPM [facility] Ondansetron HCl (Zofran Odt) 4 mg PO Q8H [facility] Oxycodone HCl (Oxycodone) Confirm Administered Dose 15 mg .ROUTE .STK-MED ONE Stop: 05/27/17 13:30 Last Admin: 05/27/17 17:11 Dose: Not Given Oxycodone HCl (Oxycodone) 15 mg PO Q4H PRN PRN Reason: MODERATE PAIN Last Admin: 05/28/17 11:01 Dose: 15 mg - Exam General: Alert, Oriented, Other (sleepy and lethargic. Icterus of skina nd conjuctiva) HEENT: Pupils Equal, Pupils Reactive, EOMI Neck: Supple Lungs: Clear to Auscultation, Normal Respiratory Effort Cardiovascular: Regular Rate, Regular Rhythm GI/Abdominal Exam: Normal Bowel Sounds, Soft, Distended, Tender (superficial tenderness all over bdomen), Other (Ostomy drainaing stool). No: Guarding, Rigid, Rebound Extremities: Pedal Edema (2+ B/L) Skin: Warm, Intact, Other (very icteric) - Problem List & Annotations (1) Hypokalemia SNOMED Code(s): 40940538 Code(s): E87.6 - HYPOKALEMIA Status: Acute Current Visit: No (2) Hyponatremia SNOMED Code(s): 15092596 Code(s): E87.1 - HYPO-OSMOLALITY AND HYPONATREMIA Status: Acute Current Visit: No (3) Pain management SNOMED Code(s): 288687967, 717754829 Code(s): R52 - PAIN, UNSPECIFIED Status: Acute Current Visit: Yes - Problem List Review Problem List Initiated/Reviewed/Updated: Yes - My Orders Last 24 Hours: My Active Orders 05/29/17 16:00 Megestrol [Megace 40 MG/ML Susp] 20 mg PO QID - Assessment Assessment:: Comfort care Pain management - Plan Plan:: Pt's sodium is 125, his BUN is 9 and creat is 0.4. he appears well hydrated. His hypokalmeia might be inefficient absorption of sodium from his ileostomy. I have decreased his IV fluids to 50 cc/hr. Pt's potassium today is 3.5. Improved hypokalemia. Also on 50 MCG fentanyl patch patient has been doing better.Pain controlled. More alert and wake. Will continue on present regime. Will repeat BMP in Am. 05/29/17 Have removed the fentanyl patch and have kept him on TRAVEL MANAGER due to him being very groggy and fentanyl being long acting can make patient drowsy. I have changed the TRAVEL MANAGER protocol to keep his pain under control. At this point pt does not seem to be improving. Family does understand. Will keep him on comfort care. 05/30/17 Pt condition is not improving. He does have endstage cancer. Pain controlled with TRAVEL MANAGER. Very jaundiced, he does get gorggy and confused at times. Might be from severe jaundice and also TRAVEL MANAGER. His vitals are stable. Plan is to keep him comfortable and pain free. Family does understand.
[2017-05-30] MEDS: fentaNYL 50 MCG/HR Transdermal Patch TRDERM SCH (19:26)
[2017-05-30] MEDS: Morphine PF 150 MG/30 ML PCA Syringe IV SCH (19:40)
[2017-05-30] MEDS: Zolpidem 5 MG Tab PO SCH (20:06)
[2017-05-30] MEDS: Cyclobenzaprine 10 MG Tab PO SCH (20:06)
[2017-05-30] MEDS: Ondansetron 4 MG/2 ML SDV IVPUSH PRN (21:14)
[2017-05-31] MEDS: Ondansetron 4 MG/2 ML SDV IVPUSH PRN ×2 (04:50→05:30)
[2017-05-31] MEDS ORDERED: LORazepam 2 MG/ML MDV IVPUSH ONE (06:34)
[2017-05-31] MEDS ORDERED: Atropine 1% Ophth Soln 5 ML Bottle ONE (08:00)
[2017-05-31] MEDS ORDERED: LORazepam 2 MG/ML MDV ONE (10:46)
--- NOTE | 2017-05-31 13:13 | PCM.DCSUM1 ---
Discharge Summary - Hospital Course Free Text/Narrative:: Pt was admitted with hyponatremia , weakness and for pain management of the cancer pain form end stage adenocarcinoma of the pancreas. Pt was started on Normal saline with Potassium 20 MEQ for IV hydration. Also his fentanyl was decreased to 50mcg and placed on oxycodone for break through pain. On Day 1, Patient's pain had slightly improved. there was no significant improvement in his sodium levels. also he was more weak. tolerating some oral fluids. Day2: Pt's pain was getting worse. Hence LAUNDROMAT WORKER was discussed with family and patient. he agreed for LAUNDROMAT WORKER. Morphine LAUNDROMAT WORKER was started. Pt was able to control his pain. But his pain medication requirement increased. Also he was getting more groggy, hence Fentayl patch was removed. And kept on Morphine LAUNDROMAT WORKER only. Day3: pt's was getting more somnolent and also having loud breathing with moaning on and off. His oral intake wa stopped. He needed higher dose of morphine for pain control. I had discussed with family at this point, probably it is going to be more of pain control with high dose of morphine Iv and comfort care. Pt has a very disturbed night from pain and discomfort. Not responding to any pain response or verbal command. On 05/31/17 , IV morphine for pain and atropine drops to dry the upper air way secretion were continued. Pt's breathing was more shallow and slow. Apparently around 12:43 pt left his last breathing. On exam there was absent heart sounds and breath sounds. Pupils were dilated and absent corneal reflex. Pt was declared at 12:43 on 05/31/17. After consulting with family [facility] notified. - Discharge Data Discharge Date: 05/31/17 Discharge Disposition: 20 Condition: Good - Discharge Diagnosis/Problem(s) (1) Hypokalemia SNOMED Code(s): 98256597 ICD Code: E87.6 - HYPOKALEMIA Status: Acute Current Visit: No (2) Hyponatremia SNOMED Code(s): 39576973 ICD Code: E87.1 - HYPO-OSMOLALITY AND HYPONATREMIA Status: Acute Current Visit: No (3) Pain management SNOMED Code(s): 989726744, 851365641 ICD Code: R52 - PAIN, UNSPECIFIED Status: Acute Current Visit: Yes - Discharge Plan Home Medications: Home Meds DULoxetine HCl [Duloxetine HCl] 30 mg PO BID 03/04/17 [History] Megestrol [Megace] 20 mg PO QID 04/18/17 [History] Ondansetron [Ondansetron ODT] 4 mg PO Q8HR PRN 04/18/17 [History] Cyclobenzaprine HCl [Cyclobenzaprine HCl] 10 mg PO QPM 05/27/17 [History] Dronabinol [Dronabinol] 5 mg PO TIDMEALS 05/27/17 [History] Zolpidem Tartrate [Zolpidem Tartrate] 10 mg PO QPM 05/27/17 [History] fentaNYL [Duragesic] 50 mcg TRDERM Q72H 05/27/17 [History] oxyCODONE 15 mg PO Q4H PRN 05/27/17 [History] Forms: ED Department Discharge Referrals: PCP,None [Primary Care Provider] - - Discharge Summary/Plan Comment Discharge Summary/Plan Comment: Pt at 12:43 PM on 05/31/17. - General Info Date of Service: 05/31/17 Subjective Update: Cannot obtained. Due to being unresponsive - Patient Data Vitals - Most Recent: Last Vital Signs Temp 98.9 F 05/30/17 10:00 Pulse 115 H 05/30/17 10:00 Resp 28 H 05/30/17 10:00 BP 101/65 05/30/17 10:00 Pulse Ox 94 L 05/30/17 10:00 Weight - Most Recent: 55.338 kg I&O - Last 24 hours: Intake & Output 05/30/17 05/31/17 05/31/17 22:59 06:59 14:59 Intake Total 843 600 Output Total 543 Balance 300 600 Med Orders - Current: Current Medications Cyclobenzaprine HCl (Flexeril) 10 mg PO QPM [facility] Last Admin: 05/30/17 20:06 Dose: Not Given Duloxetine HCl (Cymbalta) 30 mg PO BID [facility] Last Admin: 05/30/17 20:06 Dose: Not Given Fentanyl (Duragesic) 50 mcg TRDERM Q72H [facility] Last Admin: 05/30/17 19:26 Dose: Not Given Potassium Chloride/Sodium Chloride (Normal Saline With 20 Meq Kcl) 1,000 mls @ 50 mls/hr IV ASDIRECTED [facility] Last Admin: 05/30/17 09:54 Dose: 50 mls/hr Megestrol Acetate (Megace 40 Mg/Ml Susp) 20 mg PO QID [facility] Last Admin: 05/30/17 20:06 Dose: Not Given Morphine Sulfate (Morphine Dementia Program Director 150 Mg In 30 Ml) 0 mg IV TITRATE [facility] PRN Reason: Protocol Last Admin: 05/30/17 19:40 Dose: 150 mg (Dronabinol [ (Dronabinol] 5 Mg)) 5 mg PO DAILY@0700,1100,1600 [facility] Last Admin: 05/30/17 19:26 Dose: Not Given Ondansetron HCl (Zofran) 4 mg IVPUSH Q8H PRN PRN Reason: Nausea/Vomiting Last Admin: 05/31/17 05:30 Dose: 4 mg Zolpidem Tartrate (Ambien) 10 mg PO BEDTIME [facility] Last Admin: 05/30/17 20:06 Dose: 10 mg Discontinued Medications Fentanyl (Duragesic) 50 mcg TRDERM Q72H [facility] Last Admin: 05/27/17 15:12 Dose: Not Given Premix (Premix Bag) Confirm Administered Dose 1 mls @ as directed .ROUTE .STK- MED ONE Stop: 05/27/17 14:40 Last Admin: 05/27/17 17:11 Dose: Not Given Potassium Chloride/Dextrose/Sod Cl (D5 Ns With 20 Meq Kcl) Confirm Administered Dose 1,000 mls @ as directed .ROUTE .STK-MED ONE Stop: 05/27/17 14:41 Last Admin: 05/27/17 17:10 Dose: Not Given Lorazepam (Ativan) 1 mg IVPUSH ONETIME ONE Stop: 05/31/17 06:35 Lorazepam (Ativan) Confirm Administered Dose 2 mg .ROUTE .STK-MED ONE Stop: 05/31/17 10:47 Morphine Sulfate (Morphine Dementia Program Director 150 Mg In 30 Ml) Confirm Administered Dose 150 mg .ROUTE .STK-MED ONE Stop: 05/28/17 15:13 Last Admin: 05/28/17 15:37 Dose: Not Given Dronabinol [ Dronabinol] 5 Mg Capsule 5 mg PO TID PRN PRN Reason: NAUSEA AND VOMITING Non-Formulary Medication (Megestrol [Megace]) 20 mg PO QID [facility] Non-Formulary Medication (Zolpidem Tartrate [Zolpidem Tartrate]) 10 mg PO QPM [facility] Ondansetron HCl (Zofran Odt) 4 mg PO Q8H [facility] Ondansetron HCl (Zofran Odt) 4 mg PO Q8H PRN PRN Reason: NAUSEA Oxycodone HCl (Oxycodone) Confirm Administered Dose 15 mg .ROUTE .STK-MED ONE Stop: 05/27/17 13:30 Last Admin: 05/27/17 17:11 Dose: Not Given Oxycodone HCl (Oxycodone) 15 mg PO Q4H PRN PRN Reason: MODERATE PAIN Last Admin: 05/28/17 11:01 Dose: 15 mg - Exam HEENT: Reports: Other (Pupils dilated, absent corneal relex) Lungs: Reports: Other (absent breath sounds) Cardiovascular: Reports: Other (absent heart tones) *Q Meaningful Use (DIS) - VTE *Q VTE Criteria *Q: - Stroke *Q Stroke Criteria *Q: - AMI *Q AMI Criteria *Q:
== END 2017-05-31 12:43 | disposition expired | DRG 948 ==
LOC: LB.ED 10:06 → LB.MS 13:42
PROVIDERS: ADMIT Family Medicine; ATTEND Family Medicine
DX: G89.3 Neoplasm related pain (acute) (chronic) (principal); C25.9 Malignant neoplasm of pancreas, unspecified; E87.1 Hypo-osmolality and hyponatremia; R17 Unspecified jaundice; E87.6 Hypokalemia; Z86.711 Personal history of pulmonary embolism; Z66 Do not resuscitate; Z51.5 Encounter for palliative care; R33.9 Retention of urine, unspecified; Z93.2 Ileostomy status
CPT/HCPCS: 36415; 51702; 51798; 80048; 80053; 81001; 85025; 99284-25; A9270-GY; J2270; J2405; J3480